=== PATIENT | female | born 1955 | race African-American/Black ===

== ENCOUNTER 2024-12-25 07:49 | Outpatient (OUT) | payer MEDICARE, MEDICAID, SELFPAY ==
--- OUTSIDE RECORDS SUMMARY | 2024-08-19 05:13 | XMS_ITS ---
Author Organization The [facility] in [place] Address [address] [place] [address] Care Team Providers Care Clinical Social Work Therapist Name Role Phone None, Unknown or Primary Care Provider Unavailab Uriel Rider Unavailable [phone] REASON FOR VISIT Need insurance Encounters Encounter Location Date Provider Diagnosis [facility] [place] [address] [place] [phone] 08/19/2024 Uriel Romeo Plan Of Treatment No Information Progress Notes * Temi CARRANZA ADOB: [birth year] (69 yo F)Acc No.[id number]:08/19/2024 Patient: Kavon JONES Temi Qiu :1955 A ge:69 Y S ex:Female Address:[address] [place] [phone] * true * Date: Generated for Printi ng/Faleleg/eTransmitting on: 0 12/25/2024 07:58 AM EDT
--- OUTSIDE RECORDS SUMMARY | 2024-09-02 08:41 | XMS_ITS ---
Author Organization [facility] in [place] Address [address] [place] [address] Care Team Providers Care Instant Powder Supervisor Name Role Phone None, Unknown or Primary Care Provider Unavailab Alexi Ron Unavailable [phone] REASON FOR VISIT Need new Ins - 09/07 appt Encounters Encounter Location Date Provider Diagnosis [facility] [address] [address] 09/02/2024 Alexi Powers Plan Of Treatment No Information Progress Notes * Temi CARRANZA ADOB: [birth year] (69 yo F)Acc No.[id number]:09/02/2024 Patient: Barb CHRISTIANSONricia Uyen :1955 A ge:69 Y S ex:Female Address:[address] [place] [phone] * true * Date: Generated for Printi ng/Faxing/eTransmitting on: 0 12/25/2024 07:59 AM EDT
--- OUTSIDE RECORDS SUMMARY | 2024-09-07 11:20 | XMS_ITS ---
Author Organization The [facility] in [place] Address [address] [place] [address] Care Team Providers Care Engineering Department Chair Name Role Phone None, Unknown or Primary Care Provider Unavailab Alexi Ron Unavailable [phone] Allergies Allergen (clinical drug ingredient) Drug/Non Drug Allergy documented on EMR Reaction Allergy Type Onset Date Status duloxetine DULoxetine Unknown Drug Allergy Activ e REASON FOR VISIT other proteinuria Encounters Encounter Location Date Provider Diagnosis [facility] [place] [address] [place] [address] 09/07/2024 Alexi Powers Plan Of Treatment No Information Progress Notes * Temi CARRANZA ADOB: [birth year] (69 yo F)Acc No.[id number]:09/07/2024 UNLOCKED PROGRESS NOTE Progress Note Patient: Temi CHRISTIANSON Provider: Kavon Powers MD :1955 A ge:69 Y S ex:Female Date:09/07/2024 Address:[address] [place], [place] [phone] Pcp:Unknown or None Subjective: * Chief Complaints: * 1 . Other proteinuria. * HPI: G eneral: History: Pt was referred to us by her PCP for evaluation of proteinuria. She had a total protein creatinine ratio done that showed her ratio is elevated 0.625. Pt states that she doesn't know why she was referred to us and is generally a poor historian. She is not very familiar with her medical history. N o family present at the visit to help with pt's medical history details. She denies any history of kidney conditions or any family history of kidney disease. Pt has had a history of HTN that she states just started this past year, in the last 2 months. She is also a Type II Diabetic for the same amount of time. Unsure how long pt had these conditions prior to being seen for them. She is taking diuretics for volume and BP control. No recent renal US. No lab work available other than protein electrophoresis that showed pattern consistent with glomerular protenuria and a protein/creatinine ratio of 0.625. Location: Kidneys Quality: Medical Kidney Disease Duration: New Onset Severity: Moderate Timing: Acute vs chronic Known aggravating factors: None known to pt Known relieving factors: None known to pt Other: related problems Hx of NSAIDs: Pt states that she uses Motrin a couple times per month for general aches and pains, does not use it daily, cannot recall the dose that she typically takes Hx of Renal Stones: None Hx of Proteinuria: Yes, see above. Hx of Hematuria: Not known to patient FH of kidney disease: Not known to patient Chronic (current) Diseases Hx: See PMH. * Medical History: A llergic rhinitis due to allergen, Anxiety, Arthritis, benign essential HTN, Colon polyp, DM type2, Osteoarthritis of knees, bilateral, Sciatica, Sleep apnea. * Family History: N o Family History documented.. * Allergies: D ULoxetine. Objective: * Vitals: Assessment: Plan: * Treatment: * Preventive Medicine: Screenings/Counseling: F ALL RISK SCREENING F all Risk Assessment: N o falls in the past year, A re you afraid of falling? N o. * * Electronic signature of Alexi Powers MD, [id number] on 12/25/2024 at 07:58 AM EDT Sign off status: Pending Visit Status: R /S (Rescheduled) * Provider: Kavon Powers MD Date: 0 09/07/2024 Generated for Mariana davis/Hai/Saimaitting on: 0 12/25/2024 07:58 AM EDT History and Physical Notes * HPI (History of Present Illness) Category Sub-Category Detail Notes Category Not es General History: Pt was referred to us by her PCP for evaluation of proteinuria. She had a total protein creatinine ratio done that showed her ratio is elevated 0.625. Pt states that she doesn't know why she was referred to us and is generally a poor historian. She is not very familiar with her medical history. No family present at the visit to help with pt's medical history details. She denies any history of kidney conditions or any family history of kidney disease. Pt has had a history of HTN that she states just started this past year, in the last 2 months. She is also a Type II Diabetic for the same amount of time. Unsure how long pt had these conditions prior to being seen for them. She is taking diuretics for volume and BP control. No recent renal US. No lab work available other than protein electrophoresis that showed pattern consistent with glomerular protenuria and a protein/creatinine ratio of 0.625. Location: Kidneys Quality: Medical Kidney Disease Duration: New Onset Severity: Moderate Timing: Acute vs chronic Known aggravating factors: None known to pt Known relieving factors: None known to pt Other: related problems Hx of NSAIDs: Pt states that she uses Motrin a couple times per month for general aches and pains, does not use it daily, cannot recall the dose that she typically takes Hx of Renal Stones: None Hx of Proteinuria: Yes, see above. Hx of Hematuria: Not known to patient FH of kidney disease: Not known to patient Chronic (current) Diseases Hx: See PMH.
--- OUTSIDE RECORDS SUMMARY | 2024-09-07 11:26 | XMS_ITS ---
Author Organization The [facility] in [place] Address [address] [place] [address] Care Team Providers Care Hook Puller Name Role Phone None, Unknown or Primary Care Provider Unavailab Alexi Ron [phone] REASON FOR VISIT cancel today appt Encounters Encounter Location Date Provider Diagnosis [facility] [place] [address] [place] [phone] 09/07/2024 Alexi Powers Plan Of Treatment No Information Progress Notes * Temi CARRANZA ADOB: [birth year] (69 yo F)Acc No.[id number]:09/07/2024 Patient: Temi CHRISTIANSON :1955 A ge:69 Y S ex:Female Address:[address] [place] [phone] * true * Date: Generated for Libiai ryan/Hai/eTransmitting on: 0 12/25/2024 07:58 AM EDT
--- OUTSIDE RECORDS SUMMARY | 2024-10-19 11:20 | XMS_ITS ---
Author Organization [facility] in [place] Address [address] [place] [address] Care Team Providers Care Remediation Bioanalytics Consultant Name Role Phone None, Unknown or Primary Care Provider Unavailab Alexi Ron Unavailable [phone] Allergies Allergen (clinical drug ingredient) Drug/Non Drug Allergy documented on EMR Reaction Allergy Type Onset Date Status duloxetine DULoxetine Unknown Drug Allergy Activ e REASON FOR VISIT r/s from August, other proteinuria Encounters Encounter Location Date Provider Diagnosis [facility] [place] [address] [place] [phone] 10/19/2024 Alexi Powers Plan Of Treatment No Information Progress Notes * Temi CARRANZA ADOB: [birth year] (69 yo F)Acc No.[id number]:10/19/2024 UNLOCKED PROGRESS NOTE Progress Note Patient: Temi CHRISTIANSON Provider: Kavon Powers MD :1955 A ge:69 Y S ex:Female Date:10/19/2024 Address:[address] [place], [place] [phone] Pcp:Unknown or None Subjective: * Chief Complaints: * 1 . r/s from August. 2. Other proteinuria. * HPI: G eneral: History: [...] * Vitals: Assessment: Plan: * Treatment: * * Electronic signature of Alexi Powers MD, [id number] on 12/25/2024 at 07:58 AM EDT Sign off status: Pending Visit Status: N /S N/C (No Show/No Charge) * Provider: Kavon Powers MD Date: 0 10/19/2024 Generated for Mariana davis/Hai/Hayleysmitting on: 0 12/25/2024 07:58 AM EDT History [...]
--- OUTSIDE RECORDS SUMMARY | 2024-12-14 13:15 | XMS_ITS | Encounter Summary ---
Author Organization [facility] Address [address] [place] [address] Phone Care Team Providers Care Museum Preparator Name Role Phone Yvonne Frankel MD Primary Care Provider [phone] Reason for Visit * Reason Comments Hearing Loss Encounter Details Date Type Department Care Team (Latest Contact Info) Description 12/14/2024 1:15 PM EDT Office Visit [facility] [address] [phone] [place] [address] Department of Otolaryngology [place], [place] [phone] Glomus tympanicum tumor (Primary Dx); Mixed conductive and sensorineural hearing loss of left ear, unspecified hearing status on contralateral side; Pulsatile tinnitus Discharge Disposition: Home Social History Tobacco Use Types Packs/Day Years Used Date Smoking Tobacco: Every Day Cigarettes 2 40 Passive Smoke Exposure: Never Smokeless Tobacco: Never Alcohol Use Standard Drinks/Week Comments Not Currently 0 (1 standard drink = 0.6 oz pur e alcohol) PHQ-2 Answer Date Recorded Patient Health Questionnaire-2 Score 0 12/14/2024 Comments No Sex and Gender Information Value Date Recorded Sex Assigned at Not on file Legal Sex Female 1:29 PM EDT Gender Identity Not on file Sexual Orientation Not on file documented as of this encounter Last Filed Vital Signs Vital Sign Reading Time Taken Comments Blood Pressure - - Pulse - - Temperature 36.5 C (97.7 F) 12/14/2024 1:29 PM EDT Respiratory Rate - - Oxygen Saturation - - Inhaled Oxygen Concentration - - Weight 142 kg (312 lb) 12/14/2024 1:29 PM EDT Height - - Body Mass Index 51.92 11/26/2024 12:55 PM EDT documented in this encounter Functional Status * Over the past 2 weeks, how often have you been bothered by any of the following problems? Question Answer Date of Assessment Author Little interest or pleasure in doing things Not at all 12/14/2024 1:30 PM EDT Liat Lerma L PN Feeling down, depressed, or hopeless Not at all 12/14/2024 1:30 PM EDT Liat Lerma L PN Patient Health Questionnaire -2 Score 0 12/14/2024 1:30 PM EDT Liat Lerma L PN documented as of this encounter Progress Notes * Jurgen Santana MD - 12/14/2024 1:15 PM EDT Images from the original note were not included. Chief Complaint: pulsatile tinnitus Referred by: Dt. 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 Doing well postop. Treatment History 11/26/24 - Left endoscopic transcanal glomus tympanicum resection and tympanoplasty Tympanic membrane perforation: 5% - inferior, marginal Ossicular chain reconstruction: None Middle ear inflammation: None aside from the tumor Facial nerve dehiscence: None Chorda tympani nerve: Intact Extent of tumor resection: Gross total resection HISTORY OF PRESENT ILLNESS: This is a 69 yo female who presents today for pulsatile tinnitus and suspected glomus tumor. Symptoms isolated to the left. Progressive. Worsening over the past few years. - Diabetic. Minimal mointoring - No prior ear surgeries. No known family history of paragangliomas. Denies swallowing or voice issues. Denies hypertensive urgency. has a past medical history of Anxiety, Arthritis, Bipolar disorder, Bradycardia, Chronic pain disorder, Colon polyp, Dental disease, Depression, Glomus tympanicum tumor, HL (hearing loss), Hyperlipidemia, Hypertension, Hypothyroidism, Joint pain, Knee pain, OA (osteoarthritis), Obesity, Peptic ulcer disease, Sleep apnea, Thyroid nodule, Type 2 diabetes mellitus, and Vision loss. has a past surgical history that includes Colonoscopy; Hernia repair; Cholecystectomy; Parathyroidectomy; Thyroidectomy; and Tubal ligation. Current Medications[1] Review of patient's allergies indicates: Allergies[2] Social History and Family History: reviewed in the EMR New patients fill out a 10-system review of systems survey that gets reviewed at their initial visit. Pertinent positives have been incorporated into the HPI. PHYSICAL EXAM: Vitals: 12/14/24 1329 Temp: 36.5 ??C (97.7 ??F) TempSrc: Temporal Weight: 142 kg (312 lb) The patient is well-developed, well-nourished and in no acute distress. The patient is alert and oriented to time, person, and place with appropriate mood and affect. EARS: Examination of the external ears was normal using visual inspection. Handheld otoscopy was inadequate to provide fine detail and depth perception necessary for a full diagnostic assessment of the tympanic membrane and middle ear space. The otologic microscope was utilized to improve visualization. Use of the otologic microscope facilitates cleaning of the EAC and three-dimensional, magnified visualization of the tympanic membrane and middle ear structures for diagnosis of observable pathology and anatomical variations. Otoscopic and/or microscopic evaluation reveals: Right: External auditory canal: patent Tympanic Membrane: intact and normal Middle ear: well aerated Left: External auditory canal: patent Tympanic Membrane: reconstruction intact Middle ear: effusion Eyes: EOMI, vision grossly intact, no nystagmus Neurologic: CN 2-12 intact including normal facial movement and sensation DATA REVIEWED: AUDIOGRAMS Date - 09/24/[address] IAC - 2024 - reviewed - right middle ear and mastoid well aerated - left middle ear and mastoid with complete opacification, no obvious erosion, tegmen thin but seems intact OTHER - none PROCEDURE: -none ASSESSMENT & PLAN: Problem List Items Addressed This Visit ENT Mixed conductive and sensorineural hearing loss of left ear Pulsatile tinnitus Hematology and Neoplasia Glomus tympanicum tumor - Primary Reviewed pathophysiology of glomus tympanicum. Also discussed H&N pargangliomas. Now s/p transcanal glomus tympanicum resection. Thought to be a gross total resection. - ear drops for another week - RTC in 3-4 months with audiogram Jurgen Santana M.D. Spinning Frame Changer Otology/Neurotology Department of Otolaryngology - Head and Neck Surgery [facility] Phone/Appointments: E-mail: [1] Current Outpatient Medications: aspirin 81 mg EC tablet, , Disp: , Rfl: atorvastatin (Lipitor) 40 mg tablet, Take 1 tablet (40 mg) by mouth., Disp: , Rfl: fluticasone (Flonase) 50 mcg/actuation nasal spray, Administer 2 sprays into affected nostril(s) once daily., Disp: , Rfl: furosemide (Lasix) 20 mg tablet, Take 1 tablet (20 mg) by mouth once daily in the morning. Take before meals., Disp: , Rfl: hydroCHLOROthiazide (HYDRODiuril) 25 mg tablet, Take 1 tablet (25 mg) by mouth once daily., Disp: ,Rfl: HYDROcodone-acetaminophen ([place]) 10-325 mg tablet, Take 1 tablet by mouth every 6 hours if needed for severe pain (7 - 10)., Disp: 20 tablet, Rfl: 0 levothyroxine (Synthroid, Levoxyl) 150 mcg tablet, Take 1 tablet (150 mcg) by mouth once daily in the morning. Take before meals., Disp: , Rfl: lisinopril 10 mg tablet, Take 1 tablet (10 mg) by mouth once daily., Disp: , Rfl: metFORMIN (Glucophage) 500 mg tablet, Take 2 tablets (1,000 mg) by mouth 2 times daily (morning andlate afternoon)., Disp: , Rfl: metoprolol tartrate (Lopressor) 25 mg tablet, Take 1 tablet (25 mg) by mouth twice a day., Disp: , Rfl: mometasone (Elocon) 0.1 % ointment, APPLY TO AFFECTED AREA TOPICALLY EVERY DAY, Disp: , Rfl: polyethylene glycol (Glycolax, Miralax) 17 gram packet, Take 17 g by mouth once daily., Disp: , Rfl: potassium chloride (Klor-Con) 20 mEq packet, Take 20 mEq by mouth once daily., Disp: , Rfl: sertraline (Zoloft) 50 mg tablet, Take 1 tablet (50 mg) by mouth once daily in the morning. Take before meals., Disp: , Rfl: traZODone (Desyrel) 50 mg tablet, , Disp: , Rfl: ofloxacin (Floxin) 0.3 % otic solution, Administer 4 drops into affected ear(s) 2 times a day. (Patient not taking: Reported on 12/14/2024), Disp: 10 mL, Rfl: 0 [2] Allergies Allergen Reactions Duloxetine Diarrhea and Other documented in this encounter Plan of Treatment Upcoming Encounters Date Type Department Care Team (Late st Contact Info) Description 04/01/2025 2:00 PM EST Clinical Support [facility] [address] [place] [phone] Estella Bonilla, AUD, 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
--- OUTSIDE RECORDS SUMMARY | 2024-12-25 07:58 | XMS_ITS | Clinical Summary ---
Author Organization [facility] Address [address] [place] [address] Phone Care Team Providers Care Automobile Locator Name Role Phone Yvonne Frankel MD Primary Care Provider [phone] Allergies Active Allergy Reactions Criticality Noted Date Comments Duloxetine Diarrhea,Other 09/18/2023 Medications aspirin 81 mg EC tablet 4 Active atorvastatin (Lipitor) 40 mg tablet Take 1 tablet (40 mg) by mouth. 4 Active fluticasone (Flonase) 50 mcg/actuation nasal spray Administer 2 sprays into affected nostril(s) once daily. 4 Active furosemide (Lasix) 20 mg tablet Take 1 tablet (20 mg) by mouth once daily in the morning. Take before meals. 4 Active hydroCHLOROthi azide (HYDRODiuril) 25 mg tablet Take 1 tablet (25 mg) by mouth once daily. 5 Active metFORMIN (Glucophage) 500 mg tablet Take 2 tablets (1,000 mg) by mouth 2 times daily (morning and late afternoon). 3 Active lisinopril 10 mg tablet Take 1 tablet (10 mg) by mouth once daily. 5 Active metoprolol tartrate (Lopressor) 25 mg tablet Take 1 tablet (25 mg) by mouth twice a day. 5 Active mometasone (Elocon) 0.1 % ointment APPLY TO AFFECTED AREA TOPICALLY EVERY DAY Active potassium chloride (Klor-Con) 20 mEq packet Take 20 mEq by mouth once daily. Active polyethylene glycol (Glycolax, Miralax) 17 gram packet Take 17 g by mouth once daily. 5 Active traZODone (Desyrel) 50 mg tablet 4 Active sertraline (Zoloft) 50 mg tablet Take 1 tablet (50 mg) by mouth once daily in the morning. Take before meals. Active levothyroxine (Synthroid, Levoxyl) 150 mcg tablet Take 1 tablet (150 mcg) by mouth once daily in the morning. Take before meals. 4 Active HYDROcodone-ac etaminophen (Lee) 10-325 mg tabletIndicati ons:Glomus tympanicum tumor,Post-ope rative pain Take 1 tablet by mouth every 6 hours if needed for severe pain (7 - 10). 20 tablet 5 Active ofloxacin (Floxin) 0.3 % otic solutionIndica tions:Glomus tympanicum tumor Administer 4 drops into affected ear(s) 2 times a day. 10 mL 5 Active Additional Information Patient not taking.Reported on 12/14/2024 chlorhexidine (Hibiclens) 4 % external liquidIndicati ons:Preoperati ve examination,Gl omus tympanicum tumor Apply topically once daily as needed (preop care). Use for 5 days prior to surgery as body wash, do not use on face or genital region. Leave on 3 min prior to removal 473 mL 5 025 Discontinu ed(Stop Taking at Discharge) chlorhexidine (Peridex) 0.12 % solutionIndica tions:Preopera tive examination,Gl omus tympanicum tumor Please use as mouthwash the night before surgery and the morning of surgery. 120 mL 5 025 Discontinu ed(Stop Taking at Discharge) amoxicillin (Amoxil) 500 mg capsuleIndicat ions:Glomus tympanicum tumor Take 1 capsule (500 mg) by mouth 3 times a day for 5 days. 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 Encounters Date Type Department Care Team Description 12/14/2024 1:15 PM EDT Office Visit [facility] [address] [address] Jurgen Santana MD Glomus tympanicum tumor (Primary Dx); Mixed conductive and sensorineural hearing loss of left ear, unspecified hearing status on contralateral side; Pulsatile tinnitus Discharge Disposition: Home 12/14/2024 Travel 11/27/2024 Telephone [facility] [address] [place] [address] Hayley Bland RN 11/26/2024 1:26 PM EDT Anesthesia [place] [address] [place] [address] Vic Duarte MD Del Angel Diaz, Laurent A, MD 11/26/2024 12:50 PM EDT - 11/26/2024 5:20 PM ED[place] [address] [place] [address] Jurgen Santana MD Combined endoscopic-microscop ic tympanomastoidectomy , Glomus tympanicum resection with CO2 laser [37024 (CPT ) +2 more] 11/26/2024 11:22 AM EDT - 11/26/2024 7:17 PM EDT Hospital [place] [address] [place] [address] Jurgen Santana MD Post-operative pain (Primary Dx); Glomus tympanicum tumor; Mixed conductive and sensorineural hearing loss of left ear with unrestricted hearing of right ear [H90.72] Discharge Disposition: Home 11/26/2024 Travel 11/25/2024 Erroneous Telephone Encounter [facility] [address] [place] [address] Hayley Bland, PATRICK 11/13/2024 1:00 PM EDT Pre-Admission Testing [facility] [address] [place] [address] Preoperative examination (Primary Dx); Glomus tympanicum tumor 11/13/2024 Travel 11/06/2024 1:30 PM EDT Clinical Support [facility] [address] [place] [address] 09/24/2024 1:30 PM EDT Office Visit [facility] [address] [place] [address] Jurgen Santana MD Mixed conductive and sensorineural hearing loss of left ear, unspecified hearing status on contralateral side (Primary Dx); Pre-op testing; Glomus tympanicum tumor 09/24/2024 1:00 PM EDT Clinical Support [facility] [address] [place] [address] Christine Short, JIMENEZ, CCC-A Mixed conductive and sensorineural hearing loss of left ear with restricted hearing of right ear (Primary Dx); Sensorineural hearing loss (SNHL) of right ear with restricted hearing of left ear 09/24/2024 Travel from Last 3 Months Family History Medical History Relation Name Comments No Known Problems Father No Known Problems Mother Deep vein thrombosis Sister Pulmonary embolism Sister Relation Name Status Comments Father Mother Sister Social History Tobacco Use Types Packs/Day Years Used Date Smoking Tobacco: Every Day Cigarettes 2 40 Passive Smoke Exposure: Never Smokeless Tobacco: Never Tobacco Cessation:Ready to Q uit: Not Asked; Counseling Given: Not Answered Alcohol Use Standard Drinks/Week Comments Not Currently 0 (1 standard drink = 0.6 oz pur e alcohol) PHQ-2 Answer Date Recorded Patient Health Questionnaire-2 Score 0 12/14/2024 Comments No Sex and Gender Information Value Date Recorded Sex Assigned at Not on file Legal Sex Female 1:29 PM EDT Gender Identity Not on file Sexual Orientation Not on file Last Filed Vital Signs Vital Sign Reading Time Taken Comments Blood Pressure 160/74 11/26/2024 6:45 PM EDT Pulse 71 11/26/2024 6:45 PM EDT Temperature 36.5 C (97.7 F) 12/14/2024 1:29 PM EDT Respiratory Rate 15 11/26/2024 6:45 PM EDT Oxygen Saturation 97% 11/26/2024 6:45 PM EDT Inhaled Oxygen Concentration - - Weight 142 kg (312 lb) 12/14/2024 1:29 PM EDT Height 165.1 cm (5' 5 ) 11/26/2024 12:55 PM EDT Body Mass Index 51.92 11/26/2024 12:55 PM EDT Plan of Treatment Upcoming Encounters Date Type Department Care Team (Late st Contact Info) Description 04/01/2025 2:00 PM EST Clinical Support [facility] [address] [place] [phone] Estella Bonilla, JIMENEZ, CCC-A [address] [facility] [place], [place] [phone] 04/01/2025 2:45 PM EST Office Visit [facility] [address] [place] [phone] [place] [address] Department of Otolaryngology [place], [place] [phone] Health Maintenance Due Date Last Done Comments CT Colonography 1953 Diabetes: Hemoglobin A1C 1953 FIT-DNA (Cologuard) 1953 FIT 1953 Lipid Panel 1955 Sigmoidoscopy 1955 Welcome to Medicare Visit 1955 MMR Vaccines (1 of 1 - Standard series) 1954 Diabetes: Retinopathy Screening 1963 Hepatitis C Screening 1971 Hepatitis A Vaccines (1 of 2 - Risk 2-dose series) 1972 DTaP/Tdap/Td Vaccines (1 - Tdap) 1975 Hepatitis B Vaccines (1 of 3 - Risk 3-dose series) 2013 RSV High Risk: (Elderly (60+) or Population) (1 - Risk 60-74 years 1-dose series) 2013 Pneumococcal Vaccine (3 of 3 - PCV20 or PCV21) 08/27/2023 08/26/2018, 02/20/2013 COVID-19 Vaccine (3 - season) 2023 10/12/2020, 09/07/2020 Zoster Vaccines (2 of 2) 02/24/2024 12/30/2023 Bone Density Scan 09/03/2024 09/03/2022 Diabetes: Urine Protein Screening 12/25/2024 12/26/2023 Influenza Vaccine (#1) 2024 , 03/07/2023, 04/16/2022, Additional history exists Lung Cancer Screening 02/24/2025 02/25/2024, 022 Mammogram 02/24/2025 02/25/2024, 01/28, 09/12/2022, Additional history exists TSH Level 07/03/2025 07/03/2024 Colonoscopy 10/02/2034 10/02/2024, 06/0 09/2024, 03/06/2024, Additional history exists Colorectal Cancer Screening 10/02/2034 HIB Vaccines Aged Out No longer eligi ble based on patient's age to complete this topic HPV Vaccines Aged Out No longer eligi ble based on patient's age to complete this topic IPV Vaccines Aged Out No longer eligi ble based on patient's age to complete this topic Meningococcal Vaccine Aged Out No woody jovani eligible based on patient's age to complete this topic Rotavirus Vaccines Aged Out No longer eligible based on patient's age to complete this topic Medical Devices Implanted Type Area Lunchroom Food Service Supervisor Device Identifier Shelf Expiration Date Model / Serial / Lot Graft, [employer], [employer], 0.6.-0.9cm - [id number] Implanted:Qty : 1 on 11/26/2024 by Jurgen Santana MD at [facility] Cochlear Implant Left: [id number] 08/18/2025 [id number] / / [id number] Procedures Procedure Name Priority Date/Time Associated Diagnosis Comments POCT GLUCOSE Routine 11/26/2024 6:20 PM EDT PULSE OXIMETRY, CONTINUOUS Routine 11/26/2024 4:51 PM EDT SURGICAL PATHOLOGY EXAM Routine 11/26/2024 3:09 PM EDT Glomus tympanicum tumor POCT GLUCOSE Routine 11/26/2024 2:56 PM EDT ANESTHESIA PERIPHERAL IV PLACEMENT Routine 11/26/2024 1:40 PM EDT MD AN ELECTIVE ENDOTRACHEAL AIRWAY Routine 11/26/2024 1:36 PM EDT VERAB/VERIFY ABORH STAT 11/26/2024 1: 00 PM EDT POCT GLUCOSE Routine 11/26/2024 12:53 PM EDT MD EXCISION AURAL GLOMUS TUMOR TRANSMASTOID 11/26/2024 12:50 PM EDT Glomus tympanicum tumor Special Needs CALVIAN ENDOPEN (Transsphenoidal tray) MD TMPP MASTOIDECT NTC/RCNSTED WALL W/O OCR 11/26/2024 12:50 PM EDT Glomus tympanicum tumor Special Needs CALVIAN ENDOPEN (Transsphenoidal tray) MD GRAFT EAR CRTLG AUTOGENOUS NOSE/EAR 11/26/2024 12:50 PM EDT Glomus tympanicum tumor Special Needs CALVIAN ENDOPEN (Transsphenoidal tray) PULSE OXIMETRY, SPOT Routine 11/26/2024 12:48 PM EDT Glomus tympanicum tumor TYPE AND SCREEN Routine 11/13/2024 1:38 PM EDT Preoperative examination Glomus tympanicum tumor BASIC METABOLIC PANEL Routine 11/13/2024 1:38 PM EDT Preoperative examination Glomus tympanicum tumor CBC Routine 11/13/2024 1:38 PM EDT Preoperative examination Glomus tympanicum tumor STAPHYLOCOCCUS AUREUS/MRSA COLONIZATION, CULTURE Routine 11/13/2024 1:38 PM EDT Preoperative examination Glomus tympanicum tumor from Last 3 Months Results * (ABNORMAL) POCT GLUCOSE (11/26/2024 6:20 PM EDT) POCT Glucose 100(H) 74 - 99 mg/dL 11/26/2024 6:22 PM EDT [facility] Blood Capillary blood specimen / Unknown 11/26/2024 6:20 PM EDT 11/26/2024 6:22 PM EDT us Jurgen Santana MD LAB POINT OF CARE TE ST DOCKED DEVICE UNSOLICITED RESULTS Final Result [facility] [address] [id number] * Surgical Pathology Exam (11/26/2024 3:09 PM EDT) Case Report Surgical Pathology Case: [id number] Authorizing Provider: Jurgen Santana MD Collected: 11/26/2024 1509 Ordering Location: 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 12/14/2024 1:14 PM EDT [facility] Resident Review The findings were reviewed in conjunction with Endocrine Pathology Fellow, Mark Meyer M.D. The gross and/or microscopic findings were reviewed in conjunction with pathology resident, Clair Monet M.D. 12/14/2024 1:14 PM EDT [facility] Synoptic Report Commentary CLINICAL +Clinical History: cannot be determined Functional Status: Not known (no information provided) +Tumor Scintigraphy or PET Avidity: cannot be determined +Anatomic Location from Imaging: left middle ear +Tumor Size from Imaging Studies: cannot be determined SPECIMEN Extra-adrenal excision,left middle ear +Specimen Integrity : Fragmented TUMOR Tumor Number: Unifocal Tumor Location: Extra-adrenal - left middle ear +Tumor Size: 1.1 x 0.5 x 0.5 cm Histologic Type(s) Paraganglioma Tumor Necrosis: Not identified Angioinvasion: Not identified Lymphatic Invasion: Not identified Tumor Extent: Cannot be determined: morcellated specimen\ Tumor Proliferative Activity Ki-67 Labeling Index 8.4% Ki-67 Methodology :automated image analysis MARGINS Margin Status: Cannot be determined REGIONAL LYMPH NODES Regional Lymph Node Status: Not applicable (no regional lymph nodes submitted or found) DISTANT METASTASIS Not applicable ADDITIONAL FINDINGS None identified SPECIAL STUDIES +Keratins (cam5.2): Negative +Chromogranin-A: Positive +Tyrosine Hydroxylase: Positive +GATA3: Positive +V528--msdffwlf [employer]: Present +SDHB: Retained (normal staining) +CAIX Negative +FH Retained (normal staining) Other Markers Negative for glucagon, PP, SATB2 12/14/2024 1:14 PM EDT [facility] Clinical History Glomus tympanicum tumor [D18.09] 12/14/2024 1:14 PM EDT [facility] Gross Description A: Received in formalin, labeled with the patient's name and number and left middle ear contents , are multiple fragments of duval-brown soft tissue that measure 1.1 x 0.5 x 0.5 cm in aggregate. The specimen is submitted in toto in one cassette. DEREK 12/14/2024 1:14 PM EDT [facility] Disclaimer One or more of the reagents used to perform assays on this specimen MAY have contained components considered to be analyte specific reagents (ASR's). ASR's have not been cleared or approved by the U.S. Food and Drug Administration. These assays were developed and their performance characteristics determined by the Department of Pathology at [facility]. The FDA does not require this test to go through premarket FDA review. This test is used for clinical purposes. It should not be regarded as investigational or for research. This laboratory is certified under the Clinical Laboratory Improvement Amendments (CLIA) as qualified to perform high complexity clinical laboratory testing. The assays were performed with appropriate positive and negative controls which stained appropriately. 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] Jurgen Santana MD LAB PATHOLOGY ORDERABLES Final Result Performing Organization Address [facility] Co de Phone Number [facility] [address] [place] [phone] * POCT GLUCOSE (11/26/2024 2:56 PM EDT) POCT Glucose 85 74 - 99 mg/dL 11/26/2024 5:28 PM EDT [facility] Blood Capillary blood specimen / Unknown 11/26/2024 2:56 PM EDT 11/26/2024 5:28 PM EDT Jurgen Santana MD LAB POINT OF CARE TE ST DOCKED DEVICE UNSOLICITED RESULTS Final Result Performing Organization Address [facility] de Phone Number [facility] [address] [place] [id number] * ANESTHESIA PERIPHERAL IV PLACEMENT (11/26/2024 1:40 PM EDT) Narrative Silvano Valentine CAA - 11/26/2024 1:40 PM EDT LINDSEY Del Rosario 11/26/2024 2:15 PM Peripheral IV Date/Time: 11/26/2024 1:40 PM Inserted by: LINDSEY Del Rosario Placement Needle size: 18 G Laterality: left Location: wrist Local anesthetic: none Site prep: alcohol Technique: anatomical landmarks Attempts: 1 us Vic Duarte MD ANESTHESIA ORDERABLES Edited Res ult - Final * MD AN ELECTIVE ENDOTRACHEAL AIRWAY (11/26/2024 1:36 PM EDT) Narrative Silvano Valentine CAA - 11/26/2024 1:36 PM EDT LINDSEY Del Rosario 11/26/2024 2:12 PM Airway Date/Time: 11/26/2024 1:36 PM Reason: elective Airway not difficult Staffing Performed: attending and CAA Authorized by: Steve Cordova MD Performed by: LINDSEY Del Rosario Patient location during procedure: OR Patient Condition Indications for airway management: anesthesia Patient position: ramp MILS not maintained throughout No planned trial extubation Final Airway Details Preoxygenated: yes Final airway type: endotracheal airway Successful airway: ETT Cuffed: yes Successful intubation technique: video laryngoscopy Endotracheal tube insertion site: oral Blade type: kapoor. Blade size: #3 ETT size (mm): 7.0 Cormack-Lehane Classification: grade I - full view of glottis Placement verified by: chest auscultation, capnometry and palpation of cuff Measured from: teeth ETT to teeth (cm): 21 Number of attempts at approach: 1 Number of other approaches attempted: 0 us Steve Cordova MD ANESTHESIA ORDERABLE S Edited Result - Final * Verify ABO/Rh Group Test (VERAB) (11/26/2024 1:00 PM EDT) ABO TYPE O 11/26/2024 1:49 PM EDT [facility] Rh TYPE POS 11/26/2024 1:4 9 PM EDT [facility] Blood Venous blood specimen / Unknown Venipuncture / Unknown 11/26/2024 1:00 PM EDT 11/26/2024 1:08 PM EDT us Silvano PORTILLO LAB BLOOD BANK TEST ORDERABLES Final Result [facility]OD BANK [address] [place] [address] * POCT GLUCOSE (11/26/2024 12:53 PM EDT) POCT Glucose 86 74 - 99 mg/dL 11/26/2024 1:04 PM EDT [facility] Blood Capillary blood specimen / Unknown 11/26/2024 12:53 PM EDT 11/26/2024 1:04 PM EDT us Jurgen Santana MD LAB POINT OF CARE TE ST DOCKED DEVICE UNSOLICITED RESULTS Final Result [facility] [address] [address] [address] [phone] * (ABNORMAL) CBC (11/13/2024 1:38 PM EDT) [facility] Signature WBC 6.8 4.4 - 11.3 x10*3/uL LAB HEMATOLOGY METHOD 11/13/2024 3:39 PM EDT [facility] nRBC 0.0 0.0 - 0.0 /100 WBCs LAB HEMATOLOGY METHOD 11/13/2024 3:39 PM EDT [facility] RBC 5.22(H) 4.00 - 5.20 x10*6/uL LAB HEMATOLOGY METHOD 11/13/2024 3:39 PM EDT [facility] Hemoglobin 13.7 12.0 - 16.0 g/dL LAB HEMATOLOGY METHOD 11/13/2024 3:39 PM EDT [facility] Hematocrit 43.2 36.0 - 46.0 % LAB HEMATOLOGY METHOD 11/13/2024 3:39 PM EDT [facility] MCV 83 80 - 100 fL LAB HEMATOLOGY METHOD 11/13/2024 3:39 PM EDT [facility] MCH 26.2 26.0 - 34.0 pg LAB HEMATOLOGY METHOD 11/13/2024 3:39 PM EDT [facility] MCHC 31.7(L) 32.0 - 36.0 g/dL LAB HEMATOLOGY METHOD 11/13/2024 3:39 PM EDT [facility] RDW 18.6(H) 11.5 - 14.5 % LAB HEMATOLOGY METHOD 11/13/2024 3:39 PM EDT [facility] Platelets 210 150 - 450 x10*3/uL LAB HEMATOLOGY METHOD 11/13/2024 3:39 PM EDT [facility] Blood Venous blood specimen / Unknown Venipuncture / Unknown 11/13/2024 1:38 PM EDT 11/13/2024 3:22 PM EDT Jenny Yuan PA-C LAB BLOOD ORDERABLES Final Res ult Performing Organization Address [facility]/ZIP Co de Phone Number [facility] [address] [address] * Type And Screen Is this order related to or an upcoming surgery? Yes; Where will this surgery/delivery be performed? [facility]; What is the date of the surgery? 11/26/2024; Has this patient ever had a transfusion? No; Has t... (11/13/2024 1:38 PM EDT) Pathologist [facility] ABO TYPE O 11/13/2024 4:23 PM EDT [facility] Rh TYPE POS 11/13/2024 4:23 PM EDT [facility]LOOD BANK ANTIBODY SCREEN NEG 4:23 PM EDT [facility] Blood Venous blood specimen / Unknown Venipuncture / Unknown 11/13/2024 1:38 PM EDT 11/13/2024 3:05 PM EDT [employer] PA-C LAB BLOOD BANK TEST ORDERABLES Final Result Performing Organization Address [facility] Co de Phone Number [facility] BLOOD BANK [id number] [place] [phone] * Staphylococcus aureus/MRSA colonization, Culture (11/13/2024 1:38 PM EDT) Pathologist [facility] Staph/MRSA Screen Culture No Staphylococcus aureus isolated 11/15/2024 6:29 AM EDT [facility] Swab (Nares/Axilla/Gr oin) 11/13/2024 1:38 PM EDT 11/13/2024 3:19 PM EDT [employer] PA-C LAB MICROBIOLOGY - GENERAL ORD ERABLES Final Result Performing Organization Address City/[facility]/ZIP Co de Phone Number [facility] [address] [address] * (ABNORMAL) Basic Metabolic Panel (11/13/2024 1:38 PM EDT) [facility] Glucose 94 74 - 99 mg/dL LAB CHEMISTRY METHOD 11/13/2024 4:05 PM EDT [facility] Sodium 135(L) 136 - 145 mmol/L LAB CHEMISTRY METHOD 11/13/2024 4:05 PM EDT [facility] Potassium 4.5 3.5 - 5.3 mmol/L LAB CHEMISTRY METHOD 11/13/2024 4:05 PM EDT [facility] Chloride 96(L) 98 - 107 mmol/L LAB CHEMISTRY METHOD 11/13/2024 4:05 PM EDT [facility] Bicarbonate 28 21 - 32 mmol/L LAB CHEMISTRY METHOD 11/13/2024 4:05 PM EDT [facility] Anion Gap 16 10 - 20 mmol/L LAB CHEMISTRY METHOD 11/13/2024 4:05 PM EDT [facility] Urea Nitrogen 13 6 - 23 mg/dL LAB CHEMISTRY METHOD 11/13/2024 4:05 PM EDT [facility] Creatinine 0.85 0.50 - 1.05 mg/dL LAB CHEMISTRY METHOD 11/13/2024 4:05 PM EDT [facility] eGFR 73 >60 mL/min/1. 73m*2 LAB CHEMISTRY METHOD 11/13/2024 4:05 PM EDT [facility] Comment: Calculations of estimated GFR are performed using the 2020 CKD-EPI Study Refit equation without the race variable for the IDMS-Traceable creatinine methods. https://jasn.asnjournals.org/content//ASN.3179940836 Calcium 9.7 8.6 - 10.6 mg/dL LAB CHEMISTRY METHOD 11/13/2024 4:05 PM EDT [facility] Blood Venous blood specimen / Unknown Venipuncture / Unknown 11/13/2024 1:38 PM EDT 11/13/2024 3:33 PM EDT Jenny Yuan PA-C LAB BLOOD ORDERABLES Final Res ult [facility] [address] [facility] [id number] [place], [place] [phone] from Last 3 Months Insurance MEDICAID AET[employer] MEDICARE ASSURE [facility] MEDICAID T MEDICARE ASSURE [facility] [employer] [facility] Advance Directives For more information, please contact: [phone] (Available ) * Full Code (Latest Code Status on File) Date Activated Date Inactivated Comments 11/26/2024 12:48 PM Question Answer Comments Plan of Care: Code Status Discussion Completed Decision Maker: Patient Care Teams Automobile Locator Relationship Specialty Start Date End Date Yvonne Frankel MD [address] [place] [address] PCP - General Family Medicine 08/26/24
--- OUTSIDE RECORDS SUMMARY | 2024-12-25 07:58 | XMS_ITS | Patient Health Record ---
Author Organization [facility] [place] Address [address] [place] [address] Care Team Providers Care Account Services Coordinator Name Role Phone None, Unknown or Primary Care Provider Unavailab Alexi Ron Unavailable [phone] Uriel Romeo Unavailable [phone] Allergies Allergen (clinical drug ingredient) Drug/Non Drug Allergy documented on EMR Reaction Allergy Type Onset Date Status duloxetine DULoxetine Unknown Drug Allergy Activ e Reason For Referral No Information Medications Medication SIG (Take, Route, Frequency, Duration) Notes Start Date End Date Status metFORMIN HCl 500 MG 1 tablet with a sebas l Orally Once a day Active Lisinopril 10 MG 1 tablet Orally Once a day Active Mometasone Furoate 0.1 % 1 application Externally Once a day Active Metoprolol Tartrate 25 MG 1 tablet with food Orally daily Active Furosemide 20 MG 1 tablet Orally Once a day Active Flonase Active Levothyroxine Sodium 150 MCG 1 tablet in the morning on an empty stomach Orally Once a day Active hydroCHLOROthiazide 25 MG 1 tablet in th morning Orally Once a day Active Aspirin 81 Active traZODone HCl 50 MG 1 tablet at bedtime as needed Orally Once a day Active Potassium Chloride CR Active Atorvastatin Calcium 40 MG 1 tablet Oral ly Once a day Active Zoloft 50 MG 1 tablet Orally Once a day Active Problems Problem Type SNOMED Code ICD Code Onset Dates Problem Status W/U Status Risk Notes Problem 735209238 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 Problem 32562281 Other proteinuria (R80.8) Active confirmed Vital Signs Blood pressure diastolic 76 mm Hg 06/30/2024 Height 5ft 6 in in 06/30/2024 Blood pressure systolic 120 mm Hg 06/30/2024 Weight 286.6 lbs 06/30/2024 BMI 46.25 kg/m2 06/30/2024 Encounters Encounter Location Date Provider [facility] [address] [place] [address] 04/27/2024 Alexi [facility] [address] [place] [address] 05/21/2024 Uriel Romeo [facility] [address] [place] [address] [facility] [address] [place] [address] 09/02/2024 [facility] [address] [place] [address] 09/07/2024 [facility] [address] [place] [address] 06/30/2024 Uriel Romeo Other proteinuria R80.8 and Type 2 diabetes mellitus with diabetic nephropathy E11.21 Assessments Encounter Date Diagnosis (ICD Code) Assessment Notes Treatment Notes Treatment Clinical Notes Section Notes 06/30/2024 Other proteinuria (ICD-10 - R80.8) Total protein/creatin ine ratio elevated at 0.625. Pt has history of diabetes that has only been known for about 2 months. Will check serum and urine immunofixations . Will also check renal US to rule out any structural issues. Will obtain BMP to establish baseline renal values. Encouraged good glycemic control. Continue on current ACEi for management of HTN, proteinuria, and for renoprotection. Discussed SGLT2i with the pt, as this may be a good option for further management of her diabetes, proteinuria, and for additional renoprotection. Will follow up with pt in 4-6 weeks after the above testing has been done to determine further treatment plan. 06/30/2024 Type 2 diabetes mellitus with diabetic nephropathy (ICD-10 - E11.21) Plan Of Treatment Pending Test Test Name Order Date UA (URINALYSIS, COMPLETE) 06/30/2024 CBC WITH DIFF 06/30/2024 IMMUNOFIXATION-SIEP, BLOOD (SEP,IGAM,IFI X) 06/30/2024 IMMUNOELECTROPHORESIS, RANDOM URINE (UIE P) 06/30/2024 VITAMIN D, 25 LEVEL (TOTAL) 06/30/2024 US Renal 06/30/2024 ELECTROPHORESIS, URINE IMMUNOFIX 025 Total Protein/Creat Random Urine 025 CHEM-R (RENAL FUNC PANEL) w/eGFR CKD-EPI 06/30/2024 Insurance Providers Payer Name Payer Address Payer Phone Subscriber Number Group Number Insured Name Patient Relationship to Insured Coverage Start Date Coverage End Date [facility] DUAL PRIMARY MEDICARE [address] [place] [address] [id number] Temi Vargas Self - [facility] is the [facility] [address] [place], [place] [id number] Temi Vargas Self - patient is the insured Medical (General) History Medical History History ICD Code allergic rhinitis due to allergen anxiety arthritis benign essential HTN colon polyp DM type2 osteoarthritis of knees, bilateral sciatica sleep apnea
--- OUTSIDE RECORDS SUMMARY | 2024-12-25 07:58 | XMS_ITS | Encounter Summary ---
Author Organization [facility] Address [address] [facility] [place] [address] Care Team Providers Care Strategic Planning Manager Name Role Phone Yvonne Frankel MD Primary Care Provider [phone] Yvonne Frankel MD Unavailable Reason for Visit * Reason Comments Med Refill Encounter Details Date Type Department Care Team (Late st Contact Info) Description 01/20/[address] [facility] Medicine [address] [place] [address] Beth Cisse NP Type 2 diabetes mellitus without complication, without long-term current use of insulin (HCC) (Primary Dx); Hypertension, unspecified type Social History Tobacco Use Types Packs/Day Years Used Date Smoking Tobacco: Never Assessed Comments Unknown Sex and Gender Information Value Date Recorded Sex Assigned at Not on file Legal Sex Female 6:58 PM EDT Gender Identity Not on file Sexual Orientation Not on file documented as of this encounter Miscellaneous Notes * Telephone Encounter - Yvonne Frankel MD - 01/21/2023 9:06 AM EDT Approvals with refills documented in this encounter Plan of Treatment Upcoming Encounters Date Type Department Care Team (Late Contact Info) Description 01/05/2025 11:20 AM EDT [facility] [address] [place] [address] Yvonne Frankel MD [address], [place] [id number] documented as of this encounter Visit Diagnoses Diagnosis Type 2 diabetes mellitus without complication, without long-term current use of insulin (HCC)- Primary Hypertension, unspecified type documented in this encounter Care Teams Strategic Planning Manager Relationship Specialty Start Date End Date Yvonne Frankel MD [address] [place], [place] [id number] PCP - General Family Medicine 09/17/22 Yvonne Frankel MD [address] [place], [place] [id number] PCP - Aetwillis 10/28/23 09/26/24 documented as of this encounter
--- OUTSIDE RECORDS SUMMARY | 2024-12-25 07:58 | XMS_ITS | Encounter Summary ---
Author Organization [facility] Address [address] [place] [address] Phone Care Team Providers Care Cigar Bander Hand Name Role Phone Yvonne Frankel MD Primary Care Provider [phone] Encounter Details Date Type Department Care Team (Latest Contact Info) Description 12/14/2024 Travel Social History Tobacco Use Types Packs/Day Years [...] on file documented as of this encounter Functional Status * Over the [...] L PN documented as of this encounter Plan of Treatment Upcoming Encounters Date Type Department Care Team (Late st Contact Info) Description 04/01/2025 2:00 PM EST Clinical Support [facility] [address] [facility] [address] [place] [address] Estella Bonilla, JIMENEZ, CCC-A [address] [facility] [place], [place] [phone] 04/01/2025 2:45 PM EST Office Visit [facility] [address] [place] [phone] [place] [address] [facility] [place] [address] documented as of this encounter Visit Diagnoses Not on filedocumented in this encounter Additional Health Concerns Assessment Noted Time A fall risk assessment has been complete d for the patient 12/14/2024 1:30 PM EDT documented as of this encounter Care Teams Cigar Bander Hand Relationship Specialty Start Date End Date Yvonne Frankel MD [address] [place] [address] PCP - General Family Medicine 08/26/24 documented as of this encounter
--- OUTSIDE RECORDS SUMMARY | 2024-12-25 07:58 | XMS_ITS | Clinical Summary ---
Author Organization [facility] Address [address] [place] [address] Care Team Providers Care Supervisory Training Specialist Name Role Phone Yvonne Frankel MD Primary Care Provider [phone] Allergies Active Allergy Reactions Criticality Noted Date Comments Duloxetine Diarrhea,Other,Unknown 09/18/2023 Medications aspirin 81 mg EC tablet Take 81 mg by mouth in the morning. 4 Active atorvastatin (Lipitor) 40 mg tablet Take 40 mg by mouth in the morning. 4 Active calcium carbonate-vitam in D3 500 mg-3.125 mcg (125 unit) tablet tablet Take 1 tablet by mouth in the morning. 5 10/29/19 26 Active fluticasone (Flonase) 50 mcg/actuation nasal spray Administer 2 sprays into each nostril in the morning. 5 10/29/19 26 Active furosemide (Lasix) 20 mg tablet Take 20 mg by mouth in the morning. 4 Active hydroCHLOROthia zide (HYDRODiuril) 25 mg tablet Take 25 mg by mouth in the morning. 5 Active levothyroxine (Synthroid, Levoxyl) 200 mcg tablet Take by mouth in the morning. 5 10/29/19 26 Active lisinopril 10 mg tablet Take 10 mg by mouth in the morning. 5 Active metFORMIN (Glucophage) 500 mg tablet Take 1,000 mg by mouth with breakfast and with evening meal. 3 Active metoprolol tartrate (Lopressor) 25 mg tablet Take 25 mg by mouth twice a day. 5 Active pantoprazole (ProtoNix) 40 mg EC tablet Take 40 mg by mouth before breakfast. 5 Active potassium chloride (Klor-Con) 20 mEq packet Take 20 mEq by mouth in the morning. Active sertraline (Zoloft) 50 mg tablet Take 50 mg by mouth in the morning. 4 Active traZODone (Desyrel) 50 mg tablet Take by mouth at bedtime. 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 Bilateral primary osteoarthritis of knee 024 Tobacco user 04/04/2023 Abnormal liver ultrasound 03/07/2023 Acquired hypothyroidism 03/07/2023 Anxiety 03/07/2023 Arthritis 03/07/2023 Benign essential hypertension 03/07/2023 Bipolar I disorder 03/07/2023 Colon polyp 03/07/2023 Overview (11/30/2024): TUBULOVILLOUS ADENOMA Constipation 03/07/2023 Type 2 diabetes mellitus wit h stage 3 chronic kidney disease, without long-term current use of insulin 03/07/2023 Elevated liver enzymes 03/07/2023 SARAH (obstructive sleep apnea) 03/07/2023 Osteoarthritis of knee 03/07/2023 RBBB 03/07/2023 Stage 3 chronic kidney disease 03/07/2023 Hearing loss 04/11/2020 Tinnitus of left ear 04/11/2020 Abnormal cardiovascular stress test 08/22/2018 Overview (11/30/2024): Added automatically from request for surgery [id number] Chest pain 08/22/2018 History of thyroidectomy, total 07/25/2017 Thyroid nodule 07/22/2017 Body mass index 50.0-59.9, adult 06/03/2017 Encounters Date Type Department Care Team Description 11/30/2024 1:00 PM EDT Office Visit [facility] [address] [place] [address] Gio Darden MD Sinus pause (Primary Dx); Sinus bradycardia; SARAH (obstructive sleep apnea); Primary hypertension; Postural dizziness with near syncope; Shortness of breath; Mixed hyperlipidemia; Morbid (severe) obesity due to excess calories (CMS/HCC); RBBB 11/27/[address] [facility] [address] [place] [address] Provider, MD Jerome from Last 3 Months Family History Medical History Relation Name Comments Heart attack Father COPD Mother Relation Name Status Comments Father Mother Social History Tobacco Use Types Packs/Day Years Used Date Smoking Tobacco: Some Days Cigarettes Smokeless Tobacco: Current Tobacco Cessation:Ready to Q uit: Not Asked; Counseling Given: Not Answered Comments:vape Alcohol Use Standard Drinks/Week Comments Yes 0 (1 standard drink = 0.6 oz pur e alcohol) occasional Comments Unknown Sex and Gender Information Value Date Recorded Sex Assigned at Female 11/30/2024 1:07 PM EDT Legal Sex Female 11:00 AM EDT Gender Identity Female 11/30/2024 1:07 PM EDT Sexual Orientation Heterosexual or Straight 07/2024 1:07 PM EDT Last Filed Vital Signs Vital Sign Reading Time Taken Comments Blood Pressure 182/110 11/30/2024 1:27 PM EDT Pulse 67 11/30/2024 1:27 PM EDT Temperature - - Respiratory Rate - - Oxygen Saturation 97% 11/30/2024 1:27 PM EDT Inhaled Oxygen Concentration - - Weight 147 kg (323 lb) 11/30/2024 1:27 PM EDT Height 167.6 cm (5' 6 ) 11/30/2024 1:27 PM EDT Body Mass Index 52.13 11/30/2024 1:27 PM EDT Plan of Treatment Upcoming Encounters Date Type Department Care Team (Late st Contact Info) Description 12/29/2024 11:15 AM EDT Office Visit [facility] [address] [place] [address] Cayden Mata MD [address] [place] [address] Health Maintenance Due Date Last Done Comments CT Colonography 1955 Diabetes: Hemoglobin A1C 1955 FIT-DNA 1955 FIT 1955 FOBT 1955 Medicare Annual Wellness (AWV) 1955 Sigmoidoscopy 1955 Diabetes: Retinopathy Screening 1963 Depression Screening 1965 Adult Tetanus 1975 Fall Risk Screening 2018 Pneumococcal Vaccine: 50+ Years (3 of 3 - PCV20 or PCV21) 08/27/2023 08/26/2018, 02/20/2013 COVID-19 Vaccine (1 - 2023-2 5 season) 2023 Zoster Vaccines (2 of 2) 02/24/2024 12/30/2023 Diabetes: Urine Protein Screening 12/25/2024 12/26/2023 Influenza Vaccine (#1) 2024 , 03/07/2023 Mammogram 02/24/2026 02/25/2024 Colonoscopy 10/02/2034 10/02/2024, 10/02/2024, 11/20/2018 Colorectal Cancer Screening 10/02/2034 HIB Vaccines Aged Out No longer eligi ble based on patient's age to complete this topic HPV Vaccines Aged Out No longer eligi ble based on patient's age to complete this topic IPV Vaccines Aged Out No longer eligi ble based on patient's age to complete this topic Meningococcal B Vaccine Aged Out No l onger eligible based on patient's age to complete this topic Meningococcal Vaccine Aged Out No woody jovani eligible based on patient's age to complete this topic Rotavirus Vaccines Aged Out No longer eligible based on patient's age to complete this topic Procedures Procedure Name Priority Date/Time Associated Diagnosis Comments ECG 12-LEAD Routine 10/17/2024 12:45 PM EDT from Last 3 Months Results * ECG 12 lead (10/17/2024 12:45 PM EDT) us Historical Provider ECG ORDERABLES Final Res ult from Last 3 Months Insurance [employer] MEDICARE [place]ICAID [place] Care Teams Supervisory Training Specialist Relationship Specialty Start Date End Date Yvonne Frankel MD [address] [place] [address] PCP - General Family Medicine 11/27/24
--- OUTSIDE RECORDS SUMMARY | 2024-12-25 07:59 | XMS_ITS | Encounter Summary ---
Author Organization [facility] Address [address] [place] [address] Care Team Providers Care Visualization Developer Name Role Phone Yvonne Frankel MD Primary Care Provider [phone] Encounter Details Date Type Department Care Team (Late st Contact Info) Description 12/11/2024 Patient Outreach [facility] [employer] [address] [place] [address] Jenna Willson, MICHELLE [address] [place] [address] Social History Tobacco Use Types Packs/Day Years Used Date Smoking Tobacco: Every Day Cigarettes Smokeless Tobacco: Never Alcohol Use Standard Drinks/Week Comments Never 0 (1 standard drink = 0.6 oz pur e alcohol) caffeine 1-2 cups/day; coffee B1300 Health Literacy Answer Date Recor ded How often do you need to hav e someone help you when you read instructions, pamphlets, or other written material from your doctor or pharmacy? Never 12/13/2023 Humiliation, Afraid, Rape, and Kick questionnair e Answer Date Recorded Within the last year, have y ou been afraid of your partner or ex-partner? No 12/13/2023 Within the last year, have y ou been humiliated or emotionally abused in other ways by your partner or ex-partner? No Within the last year, have y ou been kicked, hit, slapped, or otherwise physically hurt by your partner or ex-partner? No 12/13/2023 Within the last year, have y ou been raped or forced to have any kind of sexual activity by your partner or ex-partner? No 12/13/2023 Social Connection and Isolat ion Panel [NHANES] Answer Date Recorded In a typical week, how many times do you talk on the phone with family, friends, or neighbors? More than three times a week 12/13/2023 How often do you get togethe r with friends or relatives? More than three times a week 12/13/2023 How often do you attend [facility] or nondenominational services? More than 4 times per year 12/13/2023 Do you belong to any clubs o r organizations such as zoroastrian groups, unions, fraternal or athletic groups, or school groups? No 12/13/2023 Attends Club or Organization Meetings Not on anson e 12/13/2023 Are you , , di vorced, , never , or living with a partner? 12/13/2023 AUDIT-C Answer Date Recorded Q1: How often do you have a drink containing alc ohol? 2-4 times a month 12/13/2023 Q2: How many drinks containi ng alcohol do you have on a typical day when you are drinking? 1 or 2 12/13/2023 Q3: How often do you have si x or more drinks on one occasion? Never 12/13/2023 Overall Financial Resource Strain (CARDIA) Answe r Date Recorded How hard is it for you to pa y for the very basics like food, housing, medical care, and heating? Not very hard 12/13/2023 PHQ-2 Answer Date Recorded Patient Health Questionnaire-2 Score 0 12/26/2023 [facility] - Occupational Stress Questionnaire Answer Date Recorded Do you feel stress - tense, restless, nervous, or anxious, or unable to sleep at night because your mind is troubled all the time - these days? Not at all 12/13/2023 Exercise Vital Sign Answer Date Recorde d On average, how many days pe r week do you engage in moderate to strenuous exercise (like a brisk walk)? 7 days 12/13/2023 On average, how many minutes do you engage in exercise at this level? 10 min 12/13/2023 Hunger Vital Sign Answer Date Recorded Within the past 12 months, y ou worried that your food would run out before you got the money to buy more. Never true 12/13/19 24 Within the past 12 months, t he food you bought just didn't last and you didn't have money to get more. Never true 12/13/2023 PRAPARE - Transportation Answer Date Re corded In the past 12 months, has l ack of transportation kept you from medical appointments or from getting medications? No 11/27 In the past 12 months, has l ack of transportation kept you from meetings, work, or from getting things needed for daily living? No 12/13/2023 Housing Stability Vital Sign Answer Star e Recorded Unable to Pay for Housing in the Last Year Not o n file 07/25/2023 In the last 12 months, how many places have you lived? 1 07/25/2023 In the last 12 months, was t here a time when you did not have a steady place to sleep or slept in a snf (including now)? No 07/25/2023 Housing Stability Vital Sign Answer Star e Recorded In the last 12 months, was t here a time when you were not able to pay the mortgage or rent on time? No 12/13/2023 In the past 12 months, how m any times have you moved where you were living? 0 12/13/2023 At any time in the past 12 m [facility], were you homeless or living in a snf (including now)? No 12/13/2023 Comments Unknown Sex and Gender Information Value Date Recorded Sex Assigned at Not on file Legal Sex Female 6:58 PM EDT Gender Identity Not on file Sexual Orientation Not on file documented as of this encounter Progress Notes * MICHELLE Lee - 12/11/2024 3:31 PM EDT <December 11, 2024, 15:31 - MICHELLE Lee> Call from Adelina. States she left message for Oswaldo Olivares LPN today. She wants to meet to go over pt's medications. She has questions re: med changes from GI, states that multiple atbs were ordered for pt in addition to a stomach pill, and pt is supposed to also hold a medication for 2 weeks. States these details are on paperwork at pt's house and she can bring paperwork to visit. Advised we would also request records from GI. Adelina voices frustration that all of pt's providers have different med-lists and she does not know what pt is supposed to be taking. MICHELLE advises that there can be little to no communication between provider offices when medications are changed, and it is up to the patient to report new or changed medications when presenting to office visits. Pt has restarted lasix after being out of it for sometime. Adelina states she did not understand that this was a water pill and that pt needed it to keep legs from swelling. Advised FINISHING TRIMMER would discuss with advocate and she'd follow up to plan time to meet. * MICHELLE Lee - 12/11/2024 3:31 PM EDT <December 11, 2024, 16:28 - MICHELLE Lee> Records request faxed to [facility] requesting most recent visit note and med-list * Oswaldo Olivares LPN - 12/11/2024 3:31 PM EDT <December 15, 2024, 08:45 - Oswaldo Olivares LPN> Phone communication initiated to Patient, Temi Vargas, 1955, at [phone]. Call rings to voicemail. This nurse records voice message requesting return call at [phone]. * Oswaldo Olivares LPN - 12/11/2024 3:31 PM EDT <December 18, 2024, 11:45 - Oswaldo Olivares LPN> Receive return call from Patient's, Temi Vargas, 1955, daughter, Adelina. Adelina apologizes for the late return of call. Adelina verbalizes frustration that specialty offices do not have same medication list as primary care et this caused some confusion with medication ordered following ear procedure. Adelina mentions pharmacy had advised against use of ulcer medication with antibiotic et Adelina did hold this medication from medication organizer box while completing antibiotic regimen. Adelina mentions Patient did not administer potassium or Lasix for approximately two weeks prior to office visit on December 07 et these medications have been restarted. This nurse advises Adelina that medication list should be provided at all specialty visits to assure other offices have an updated medication list. Adelina verbalizes understanding. This nurse offers to schedule visit with Adelina/Patient next week to review medication listet assist with medication organizer boxes. Visit scheduled for December 22 at 0900. Adelina voices noadditional Patient need at this time. Adelina agrees to contact this nurse at [phone], should a question, need, or concern arise. documented in this encounter Miscellaneous Notes * Addendum Note - Oswaldo Olivares LPN - 12/11/2024 3:31 PM EDTAddended by: OSWALDO OLIVARES on: 12/18/2024 02:46 PM Modules accepted: Orders documented in this encounter Plan of Treatment Upcoming Encounters Date Type Department Care Team (Late st Contact Info) Description 01/05/2025 11:20 AM EDT [facility] [address] [place] [phone] Yvonne Frankel MD [address] [place] [address] documented as of this encounter Visit Diagnoses Diagnosis Type 2 diabetes mellitus with stage 3 chronic kidney disease, without long-term current use of insulin, unspecified whether stage 3a or 3b CKD (HCC)- Primary Hypertension, unspecified type documented in this encounter Additional Health Concerns Assessment Noted Time PHQ-9 Depression Total Score: 0 12/26/19 24 11:00 AM EDT documented as of this encounter Care Teams Visualization Developer Relationship Specialty Start Date End Date Yvonne Frankel MD [address] [place] [address] PCP - General Family Medicine 09/17/22 documented as of this encounter
--- OUTSIDE RECORDS SUMMARY | 2024-12-25 07:59 | XMS_ITS | Encounter Summary ---
Author Organization [employer] Address [facility] [id number] [address] [place] [address] Care Team Providers Care Asphalt Worker Name Role Phone Yvonne Frankel MD Primary Care Provider [phone] Reason for Visit * Reason Onset Date Comments Med Refill 09/19/2021 Encounter Details Date Type Department Care Team (Late st Contact Info) Description 09/19/2021 Refill [facility] [address] [place] [address] Sabine Lal CMA Postsurgical hypothyroidism Social History Tobacco Use Types Packs/Day Years Used Date Smoking Tobacco: Every Day Cigarettes Smokeless Tobacco: Never Alcohol Use Standard Drinks/Week Comments Yes 0 (1 standard drink = 0.6 oz pur e alcohol) occasional PHQ-2 Answer Date Recorded Total Score 0 01/29/2019 Childcare Answer Date Recorded Childcare Unknown 09/25/2018 Employment Answer Date Recorded Employment Unknown 09/25/2018 Purpose - Life Answer Date Recorded Purpose and direction in life Unknown Comments No Sex and Gender Information Value Date Recorded Sex Assigned at Not on file Legal Sex Female 11:21 AM EDT Gender Identity Not on file Sexual Orientation Not on file documented as of this encounter Miscellaneous Notes * Telephone Encounter - Marisabel Sierra PA-C - 09/19/2021 11:43 AM EDT Pt needs labs and an appt, last seen in Apr 2020 and labs were last drawn in Apr, please contat pt to schedule appt and advise her to have her labs drawn prior to and also is she taking synthroid/levothyroxine currently as prescribed? documented in this encounter Plan of Treatment Not on file documented as of this encounter Visit Diagnoses Diagnosis Postsurgical hypothyroidism documented in this encounter Additional Health Concerns Assessment Noted Time PHQ-9 Depression Total Score: 0 01/30/20 19 3:19 PM EDT documented as of this encounter Care Teams Asphalt Worker Relationship Specialty Start Date End Date Yvonne Frankel MD [address] [place] [address] PCP - General Family Medicine 10/17/24 documented as of this encounter
--- OUTSIDE RECORDS SUMMARY | 2024-12-25 07:59 | XMS_ITS | Encounter Summary ---
Author Organization [facility] Address [address] [facility] [place] [address] Care Team Providers Care Elementary School Social Worker Name Role Phone Yvonne Frankel MD Primary Care Provider [phone] Yvonne Frankel MD Unavailable Reason for Visit * Reason Comments Med Refill Encounter Details Date Type Department Care Team (Late Contact Info) Description 10/07/2022 Refill [facility] [address] [facility] [place] [address] Yvonne Frankel MD [address] [facility] [place] [address] Other specified hypothyroidism (Primary Dx) Social History Tobacco Use Types Packs/Day Years Used Date Smoking Tobacco: Never Assessed Comments Unknown Sex and Gender Information Value Date Recorded Sex Assigned at Not on file Legal Sex Female 6:58 PM EDT Gender Identity Not on file Sexual Orientation Not on file documented as of this encounter Miscellaneous Notes * Telephone Encounter - Yvonne Frankel MD - 10/08/2022 9:01 AM EDT Approvals with refills documented in this encounter Plan of Treatment Upcoming Encounters Date Type Department Care Team (Late Contact Info) Description 01/05/2025 11:20 AM EDT Office Visit [facility] Medicine [address] [place] [address] Yvonne Frankel MD [address] [place], [place] [id number] documented as of this encounter Visit Diagnoses Diagnosis Other specified hypothyroidism- Primary documented in this encounter Care Teams [employer] Social Worker Relationship Specialty Start Date End Date Yvonne Frankel MD [address] [place], [place] [id number] PCP - General Family Medicine 09/17/22 Yvonne Frankel MD [address] [place], [place] [id number] PCP - [employer] 10/28/23 09/26/24 documented as of this encounter
--- OUTSIDE RECORDS SUMMARY | 2024-12-25 07:59 | XMS_ITS | Encounter Summary ---
Author Organization [facility] Address [address] [place] [address] Care Team Providers Care Hand Painter Name Role Phone Yvonne Frankel MD Primary Care Provider [phone] Encounter Details Date Type Department Care Team (Latest Contact Info) Description 12/22/2024 Travel Social History Tobacco Use Types Packs/Day [...] week 12/13/2023 How often do you attend chur or mosque services? More than 4 times per year 12/13/2023 Do you belong to any clubs o r organizations such as protestant groups, unions, fraternal or athletic groups, or [...] Recorded Patient Health Questionnaire-2 Score 0 12/26/2023 [facility] Occup[facility] ional Health - Occupational [...] place to sleep or slept in a custodial (including now)? No 07/25/2023 Housing Stability Vital Sign Answer Star e Recorded In the last 12 months, was t here a time when you were not able to pay the mortgage or rent on time? No 12/13/2023 In the past 12 months, how m any times have you moved where you were living? 0 12/13/2023 At any time in the past 12 m [facility], were you homeless or living in a custodial (including now)? No 12/13/2023 Comments Unknown Sex and Gender Information Value Date Recorded Sex Assigned at Not on file Legal Sex Female 6:58 PM EDT Gender Identity Not on file Sexual Orientation Not on file documented as of this encounter Plan of Treatment Upcoming Encounters Date Type Department Care Team (Late st Contact Info) Description 01/05/2025 11:20 AM EDT Office Visit [facility] [address] [place] [address] Yvonne Frankel MD [address] [facility] [address] [place], [place] [address] documented as of this encounter Visit Diagnoses Not on filedocumented in this encounter Additional Health Concerns Assessment Noted Time PHQ-9 Depression Total Score: 0 12/26/19 24 11:00 AM EDT documented as of this encounter Care Teams Hand Painter Relationship Specialty Start Date End Date Yvonne Frankel MD [address] [facility] [address] [place], [place] [phone] PCP - General Family Medicine 09/17/22 documented as of this encounter
--- OUTSIDE RECORDS SUMMARY | 2024-12-25 07:59 | XMS_ITS | Encounter Summary ---
Author Organization [facility] Address [address] [facility] [place] [address] Care Team Providers Care Engineer Third Assistant Name Role Phone Yvonne Frankel MD Primary Care Provider [phone] Yvonne Frankel MD Unavailable Encounter Details Date Type Department Care Team (Late st Contact Info) Description 12/25/2022 Abstract [facility] Family Medicine [address] [place] [address] Yvonne Frankel MD [address] [place], [place] [phone] Social History Tobacco Use Types Packs/Day Years [...] Description 01/05/2025 11:20 AM EDT Office Visit [facility] Family Medicine [address] [place] [address] Yvonne Frankel MD [address] [place], [place] [address] documented as of this encounter Visit Diagnoses Not on filedocumented in this encounter Care Teams Engineer Third Assistant Relationship Specialty Start Date End Date Yvonne Frankel MD [address] [place], [place] [phone] PCP - General Family Medicine 09/17/22 Yvonne Frankel MD [address] [place] [address] PCP - [employer] 10/28/23 09/26/24 documented as of this encounter
--- OUTSIDE RECORDS SUMMARY | 2024-12-25 07:59 | XMS_ITS | Encounter Summary ---
Author Organization [employer] Address [facility] [id number] [address] [place] [address] Care Team Providers Care Family And Consumer Education Teacher Name Role Phone Yvonne Frankel MD Primary Care Provider [phone] Encounter Details Date Type Department Care Team (Late st Contact Info) Description 05/17/2020 [facility] [address] [place] [address] Shakira Gutierrez RMA Social History Tobacco Use Types Packs/Day Years [...] on file Sexual Orientation Not on file COVID-19 Exposure Response Date Recorded In the last month, have you been in contact with someone who was confirmed or suspected to have Coronavirus / COVID-19? No / Unsure 05/17/2020 2:56 PM EST documented as of this encounter Miscellaneous Notes * Telephone Encounter - LISA Gonzales - 05/17/2020 2:08 PM EST Tried to call patient to inform her that we put some lab orders in for her to be drawn. Her appointment with us tomorrow is to follow up on labs which she has not had yet. We will need to reschedule her appointment for a different day. Patient was last seen for her ears and if she would like to keep her appointment to follow up with her ears we can do that if needed. LISA Gonzales 05/17/20 1410 documented in this encounter Plan of Treatment Not on file documented as of this encounter Visit Diagnoses Not on filedocumented in this encounter Additional Health Concerns Assessment Noted Time PHQ-9 Depression Total Score: 0 01/30/20 3:19 PM EDT documented as of this encounter Care Teams Family And Consumer Education Teacher Relationship Specialty Start Date End Date Yvonne Frankel MD [address] [place] [address] PCP - General Family Medicine 10/17/24 documented as of this encounter
--- OUTSIDE RECORDS SUMMARY | 2024-12-25 07:59 | XMS_ITS | Encounter Summary ---
[facility] [employer] [facility] Address [facility] [id number] [address] [place] [address] Care Team Providers Care Java Web Services Developer Name Role Phone Yvonne Fraknel MD Primary Care Provider [phone] Reason for Visit * Reason Comments Med Refill Encounter Details Date Type Department Care Team (Late st Contact Info) Description 08/24/2017 Refill [facility] Th[facility] [address] [place] [address] [place] [phone] Marisabel Sierra, PA-C [address] [facility] [address] [place] [address] S/P thyroidectomy Social History Tobacco Use Types Packs/Day Years Used Date Smoking Tobacco: Every Day Cigarettes Smokeless Tobacco: Never Alcohol Use Standard Drinks/Week Comments Yes 0 (1 standard drink = 0.6 oz pur e alcohol) occasional Comments No Sex and Gender Information Value Date Recorded Sex Assigned at Not on file Legal Sex Female 11:21 AM EDT Gender Identity Not on file Sexual Orientation Not on file documented as of this encounter Plan of Treatment Not on file documented as of this encounter Visit Diagnoses Diagnosis S/P thyroidectomy Other postprocedural status documented in this encounter Care Teams Java Web Services Developer Relationship Specialty Start Date End Date Yvonne Frankel MD [address] [place] [address] PCP - General Family Medicine 10/17/24 documented as of this encounter
--- OUTSIDE RECORDS SUMMARY | 2024-12-25 07:59 | XMS_ITS | Encounter Summary ---
Author Organization [facility] Address [id number] [address] [place] [address] Care Team Providers Care .Net Programmer Name Role Phone Yvonne Frankel MD Primary Care Provider [phone] Reason for Visit * Reason Comments Med Refill Encounter Details Date Type Department Care Team (Late st Contact Info) Description 08/02/2021 Refill [facility] [address] [place] [address] Chris Buckner MD PhD [address] [address] RETIRED 11/27/2023 [place] [address] Postsurgical hypothyroidism Social History Tobacco Use Types [...] documented as of this encounter Care Teams .Net Programmer Relationship Specialty Start Date End Date Yvonne Frankel MD [address] [place] [address] PCP - General Family Medicine 10/17/24 documented as of this encounter
--- OUTSIDE RECORDS SUMMARY | 2024-12-25 07:59 | XMS_ITS | Encounter Summary ---
Author Organization [facility] Address [address] [facility] [place] [address] Care Team Providers Care Activities Coordinator Name Role Phone Yvonne Frankel MD Primary Care Provider [phone] Yvonne Frankel MD Unavailable Reason for Visit * Reason Comments Med Refill Encounter Details Date Type Department Care Team (Late Contact Info) Description 01/20/2023 Refill [facility] Medicine [address] [facility] [place] [address] Yvonne Frankel MD [address] [place], [place] [phone] Other specified hypothyroidism Social History Tobacco Use Types Packs/Day Years Used Date Smoking Tobacco: Never Assessed Comments Unknown Sex and Gender Information Value Date Recorded Sex Assigned at Not on file Legal Sex Female 6:58 PM EDT Gender Identity Not on file Sexual Orientation Not on file documented as of this encounter Miscellaneous Notes * Telephone Encounter - Yvonne Frankel MD - 01/21/2023 9:14 AM EDT Approvals with refills documented in this encounter Plan of Treatment Upcoming Encounters Date Type Department Care Team ([facility] Contact Info) Description 01/05/2025 11:20 AM EDT Office Visit [facility] Medicine [address] [facility] [place] [address] Yvonne Frankel MD [facility] [place] [address] documented as of this encounter Visit Diagnoses Diagnosis Other specified hypothyroidism documented in this encounter Care Teams Activities Coordinator Relationship Specialty Start Date End Date Yvonne Frankel MD [address] [place], [place] [phone] PCP - General Family Medicine 09/17/22 Yvonne Frankel MD [address] [place], [place] [phone] PCP - [employer] 10/28/23 09/26/24 documented as of this encounter
--- OUTSIDE RECORDS SUMMARY | 2024-12-25 07:59 | XMS_ITS | Encounter Summary ---
Author Organization [facility] Address [id number] [address] [place] [address] Care Team Providers Care Kitchen Worker Name Role Phone Yvonne Frankel MD Primary Care Provider [phone] Reason for Visit * Reason Onset Date Comments Sleep Lab 12/23/2024 PT Inquiry Encounter Details Date Type Department Care Team (Late st Contact Info) Description 12/23/2024 Telephone [facility] [address] [facility] [place] [address] Transcribe, Orders Support User Sleep Lab (PT Inquiry) Social History Tobacco Use Types Packs/Day Years Used Date Smoking Tobacco: Every Day Cigarettes 1.5 55.7 Started: 1972 Smokeless Tobacco: Never Alcohol Use Standard Drinks/Week Comments Yes 0 (1 standard drink = 0.6 oz pur e alcohol) occasional PHQ-2 Answer Date Recorded Total Score 0 01/29/2019 Childcare Answer Date Recorded Childcare Unknown 09/25/2018 Employment Answer Date Recorded Employment Unknown 09/25/2018 Hunger Screening Answer Date Recorded Within the past 12 months we worried whether our food would run out before we got money to buy more. Never True 10/17/2024 Within the past 12 months th e food we bought just didn't last and we didn't have money to get more. Never True 10/17/2024 Purpose - Life Answer Date Recorded Purpose and direction in life Unknown Comments No Sex and Gender Information Value Date Recorded Sex Assigned at Not on file Legal Sex Female 11:21 AM EDT Gender Identity Not on file Sexual Orientation Not on file documented as of this encounter Miscellaneous Notes * Telephone Encounter - Santos Gaurav - 12/23/2024 12:09 PM EDT PT daughter called LM to schedule, called daughter back informed her we did not have an order for asleep study gave her our fax number to give to the drs office documented in this encounter Plan of Treatment Not on file documented as of this encounter Visit Diagnoses Not on filedocumented in this encounter Additional Health Concerns Assessment Noted Time PHQ-9 Depression Total Score: 0 01/30/20 19 3:19 PM EDT documented as of this encounter Care Teams Kitchen Worker Relationship Specialty Start Date End Date Yvonne Frankel MD [address] [place] [address] PCP - General Family Medicine 10/17/24 documented as of this encounter
--- OUTSIDE RECORDS SUMMARY | 2024-12-25 07:59 | XMS_ITS | Encounter Summary ---
Author Organization [facility] [employer] Address [facility] [id number] [address] [place] [address] Care Team Providers Care Sled Maker Name Role Phone Yvonne Frankel MD Primary Care Provider [phone] Reason for Visit * Reason Comments Med Change Request Encounter Details Date Type Department Care Team (Late st Contact Info) Description 09/07/2024 Refill [facility] General Surgery [address] [place] [phone] Sue Arias, WEIGHER AND MIXER-MANAGER SOURCING [address] [place] [address] Constipation, unspecified constipation type Social History Tobacco Use Types Packs/Day [...] got money to buy more. Never True 09/07/2024 Within the past 12 months th e food we bought just didn't last and we didn't have money to get more. Never True 09/07/2024 Purpose - Life Answer Date Recorded Purpose and direction in life Unknown Comments No Sex and Gender Information Value Date Recorded Sex Assigned at Not on file Legal Sex Female 11:21 AM EDT Gender Identity Not on file Sexual Orientation Not on file documented as of this encounter Plan of Treatment Not on file documented as of this encounter Visit Diagnoses Diagnosis Constipation, unspecified constipation type documented in this encounter Additional Health Concerns Assessment Noted Time PHQ-9 Depression Total Score: 0 01/30/20 19 3:19 PM EDT documented as of this encounter Care Teams Sled Maker Relationship Specialty Start Date End Date Yvonne Frankel MD [address] [place] [address] PCP - General Family Medicine 10/17/24 documented as of this encounter
--- OUTSIDE RECORDS SUMMARY | 2024-12-25 07:59 | XMS_ITS | Encounter Summary ---
Author Organization [employer] Address [facility] [id number] [address] [place] [address] Care Team Providers Care Res Counselor Name Role Phone Yvonne Frankel MD Primary Care Provider [phone] Reason for Visit * Reason Onset Date Comments Med Refill 11/06/2017 Encounter Details Date Type Department Care Team (Late st Contact Info) Description 11/06/2017 Refill [facility] [address] [facility] [place] [address] Montse Cruz RMA S/P thyroidectomy Social History Tobacco Use Types [...] encounter Miscellaneous Notes * Telephone Encounter - Chris Buckner MD - 11/20/2017 10:13 AM EDT Patient was prescribed 118 mcg of Synthroid and has been taking since * Telephone Encounter - LISA Nevarez - 11/06/2017 2:48 PM EDT Patient needs medication refill on synthroid. LISA Nevarez 11/06/17 1449 documented in this encounter Plan of Treatment Not on file documented as of this encounter Visit Diagnoses Diagnosis S/P thyroidectomy Other postprocedural status documented in this encounter Care Teams Res Counselor Relationship Specialty Start Date End Date Yvonne Frankel MD [address] [place] [address] PCP - General Family Medicine 10/17/24 documented as of this encounter
--- OUTSIDE RECORDS SUMMARY | 2024-12-25 07:59 | XMS_ITS | Encounter Summary ---
Author Organization [facility] Address [address] [facility] [place] [place] [address] Care Team Providers Care Material Controller Name Role Phone Yvonne Frankel MD Primary Care Provider [phone] Yvonne Frankel MD Unavailable Encounter Details Date Type Department Care Team (Late st Contact Info) Description 02/03/2024 Abstract [facility] POPULATION [facility] [address] [place] [address] Jenna Willson, DESIGN ENGINEERING INTERN [address] [place] [address] Social History Tobacco Use Types Packs/Day Years [...] week 12/13/2023 How often do you attend [facility] or episcopal services? More than 4 times per year 12/13/2023 Do you belong to any clubs o r organizations such as roman catholic groups, unions, fraternal or athletic groups, or [...] Recorded Patient Health Questionnaire-2 Score 0 12/26/2023 [facility] of Occupat ional Health - Occupational Stress [...] place to sleep or slept in a skilled nursing (including now)? No 07/25/2023 Housing Stability Vital Sign Answer Star e Recorded In the last 12 months, was t here a time when you were not able to pay the mortgage or rent on time? No 12/13/2023 In the past 12 months, how m any times have you moved where you were living? 0 12/13/2023 At any time in the past 12 m [facility], were you homeless or living in a skilled nursing (including now)? No 12/13/2023 Comments Unknown Sex and Gender Information Value Date Recorded Sex Assigned at Not on file Legal Sex Female 6:58 PM EDT Gender Identity Not on file Sexual Orientation Not on file documented as of this encounter Plan of Treatment Upcoming Encounters Date Type Department Care Team (Late st Contact Info) Description 01/05/2025 11:20 AM EDT Office Visit [facility] [address] [facility] [place] [address] Yvonne Frankel MD [address] [place] [address] documented as of this encounter Visit Diagnoses Not on filedocumented in this encounter Additional Health Concerns Assessment Noted Time PHQ-9 Depression Total Score: 0 12/26/19 11:00 AM EDT documented as of this encounter Care Teams Material Controller Relationship Specialty Start Date End Date Yvonne Frankel MD [address] [place] [address] PCP - General Family Medicine 09/17/22 Yvonne Frankel MD [address] [place] [address] PCP - [employer] 10/28/23 09/26/24 documented as of this encounter
--- OUTSIDE RECORDS SUMMARY | 2024-12-25 07:59 | XMS_ITS | Encounter Summary ---
Author Organization [facility] Address [address] [facility] [place] [address] Care Team Providers Care Marine Engine Driver Name Role Phone Yvonne Frankel MD Primary Care Provider [phone] Yvonne Frankel MD Unavailable Reason for Visit * Reason Comments Med Refill Encounter Details Date Type Department Care Team (Late Contact Info) Description 10/07/2022 [facility] [address] [place] [address] Beth Cisse NP Hypertension, unspecified type (Primary Dx) Social History Tobacco Use Types Packs/Day Years Used Date Smoking Tobacco: Never Assessed Comments Unknown Sex and Gender Information Value Date Recorded Sex Assigned at Not on file Legal Sex Female 6:58 PM EDT Gender Identity Not on file Sexual Orientation Not on file documented as of this encounter Miscellaneous Notes * Telephone Encounter - Yvonne Frankel MD - 10/08/2022 9:58 AM EDT Approvals with refills documented in this encounter Plan of Treatment Upcoming Encounters Date Type Department Care Team (Late Contact Info) Description 01/05/2025 11:20 AM EDT Office Visit [facility] [address] [place] [address] Yvonne Frankel MD [address] [place] [address] documented as of this encounter Visit Diagnoses Diagnosis Hypertension, unspecified type- Primary documented in this encounter Care Teams Marine Engine Driver Relationship Specialty Start Date End Date Yvonne Frankel MD [address] [place] [address] PCP - General Family Medicine 09/17/22 Yvonne Frankel MD [address] [place] [address] PCP - [employer] 10/28/23 09/26/24 documented as of this encounter
--- OUTSIDE RECORDS SUMMARY | 2024-12-25 07:59 | XMS_ITS | Encounter Summary ---
Author Organization [facility] Address [facility] [id number] [address] [place] [address] Care Team Providers Care Clamshell Operator Name Role Phone Yvonne Frankel MD Primary Care Provider [phone] Reason for Visit * Reason Comments Med Refill Encounter Details Date Type Department Care Team (Late st Contact Info) Description 06/02/2021 Refill [facility] [address] [place] [id number] Chris Buckner MD PhD [address] [address] RETIRED 11/27/2023 [place] [address] Postsurgical hypothyroidism Social History Tobacco Use Types [...] documented as of this encounter Care Teams Clamshell Operator Relationship Specialty Start Date End Date Yvonne Frankel MD [address] [place] [address] PCP - General Family Medicine 10/17/24 documented as of this encounter
--- OUTSIDE RECORDS SUMMARY | 2024-12-25 07:59 | XMS_ITS | Clinical Summary ---
Author Organization [facility] Address [address] [place] [address] Care Team Providers Care Workday Manager Name Role Phone Yvonne Frankel MD Primary Care Provider [phone] Allergies Active Allergy Reactions Criticality Noted Date Comments Duloxetine Hcl Diarrhea 09/18/2023 Medications atorvastatin (Lipitor) 40 MG tabletIndications: Hypertension, unspecified type Take 1 tablet (40 mg) by mouth in the morning. 90 tablet 10/29/19 25 Active Calcium Carb-Cholecalcifer ol (Oyster Shell Calcium + D3) 500-10 MG-MCG tabletIndications: Acquired hypothyroidism,Vit elizondo D deficiency Take 1 tablet by mouth in the morning. 90 tablet 10/29/19 026 Active fluticasone (Flonase) 50 MCG/ACT nasal sprayIndications:B enign essential hypertension,Acute otitis media, unspecified otitis media type Administer 1-2 sprays into each nostril Daily Shake gently. Before first use, prime pump. After use, clean tip and replace cap. 48 mL 10/29/19 026 Active levothyroxine (Synthroid) 200 MCG tabletIndications: Acquired hypothyroidism Take 1 tablet (200 mcg) by mouth in the morning. Take before meals. 90 tablet 10/29/19 026 Active sertraline (Zoloft) 50 MG tabletIndications: Bipolar I disorder (HCC),Anxiety Take 1 tablet (50 mg) by mouth in the morning. 90 tablet 10/29/19 026 Active traZODone (Desyrel) 50 MG tabletIndications: Bipolar I disorder (HCC),Anxiety Take 1 tablet (50 mg) by mouth as needed at bedtime for sleep or depression 90 tablet 3 10/29/19 25 026 Active aspirin (Aspirin Low Dose) 81 MG EC tabletIndications: Hypertension, unspecified type Take 1 tablet (81 mg) by mouth in the morning. 90 tablet 11 10/30/19 25 Active ergocalciferol (Vitamin D-2) 1.25 MG (26227 UT) capsuleIndications :Vitamin D deficiency Take 1 capsule (1.25 mg) by mouth 1 (one) time per week 12 capsule 11/04/19 25 025 Active lisinopril 10 MG tabletIndications: Benign essential hypertension Take 1 tablet (10 mg) by mouth Daily 30 tablet 5 11/17/19 25 026 Active potassium chloride CR (K-Tab) 20 MEQ ER tabletIndications: Hypertension, unspecified type Take 1 tablet (20 mEq) by mouth Daily 90 tablet 3 11/17/19 25 026 Active furosemide (Lasix) 20 MG tabletIndications: Hypertension, unspecified type Take 1 tablet (20 mg) by mouth in the morning. 90 tablet 3 11/17/19 25 Active pantoprazole (ProtoNix) 40 MG EC tablet Take 40 mg by mouth Daily Do not crush, chew, or split. 11/13/19 25 Active omeprazole (PriLOSEC) [address] capsule Take 40 mg by mouth in the morning and 40 mg before bedtime. Do not crush or chew. 12/23/19 25 025 Active tetracycline 500 MG capsule Take 500 mg by mouth in the morning and 500 mg at noon and 500 mg in the evening and 500 mg before bedtime. 12/22/19 25 025 Active metroNIDAZOLE (Flagyl) 250 MG tablet Take 250 mg by mouth in the morning and 250 mg at noon and 250 mg in the evening and 250 mg before bedtime. 12/23/19 25 025 Active bismuth subsalicylate (Pepto Bismol) 262 MG chewable tablet Chew 2 tablets in the morning and 2 tablets at noon and 2 tablets in the evening and 2 tablets before bedtime. 12/23/19 25 025 Active ofloxacin (Floxin) 0.3 % otic solution Administer 4 drops into affected ear(s) in the morning and 4 drops before bedtime. 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 Bilateral primary osteoarthritis of knee 024 Assessment & Plan (11/03/2024 10:19 PM EDT): Orders: triamcinolone acetonide (Kenalog-40) injection 40 mg Tobacco user 04/04/2023 Abnormal liver ultrasound 03/07/2023 Acquired hypothyroidism 03/07/2023 Anxiety 03/07/2023 Arthritis 03/07/2023 Benign essential hypertension 03/07/2023 Bipolar I disorder 03/07/2023 Colon polyp 03/07/2023 Overview (03/07/2023): TUBULOVILLOUS ADENOMA Constipation 03/07/2023 Elevated liver enzymes 03/07/2023 SARAH (obstructive sleep apnea) 03/07/2023 Osteoarthritis of knee 03/07/2023 RBBB 03/07/2023 Stage 3 chronic kidney disease 03/07/2023 Type 2 diabetes mellitus wit h stage 3 chronic kidney disease, without long-term current use of insulin 03/07/2023 History of thyroidectomy, total 07/25/2017 Body mass index 50.0-59.9, adult 06/03/2017 Encounters Date Type Department Care Team Description 12/22/2024 Travel 12/11/2024 Patient Outreach [facility] [address] [address] Jenna Willson LSW 12/07/2024 2:40 PM EDT Office Visit [facility] [place] [address] Yvonne Frankel MD Benign essential hypertension (Primary Dx); Acquired hypothyroidism ; Chronic gastric ulcer without hemorrhage and without perforation 12/07/2024 Travel 12/07/2024 Patient Outreach [facility] [place] [address] [place] [place] [address] Jenna Willson, EXECUTIVE DIRECTOR [employer] 11/27/2024 Patient Outreach [facility] [place] [address] [place] [address] AnamikaJenna roblero, EXECUTIVE DIRECTOR [employer] 11/26/2024 Clinisync Result Encounter [facility] External Department Unsolicited Provider, Generic External Data 11/25/2024 Patient Outreach [facility] [place] [address] [place] [address] Oswaldo Marcelo, HEALTH MANAGEMENT CONSULTANT 11/25/2024 Telephone [facility] [address] [place] [address] Yvonne Frankel MD 11/25/2024 Patient Outreach [facility] [place] [address] [place] [address] Jenna Willson, [facility] 11/23/2024 Patient Outreach [facility] [address] [place] [address] Jenna Willson, [facility] 11/20/2024 Telephone [facility] [address] [place] [address] Yvonne Frankel MD 11/16/2024 Patient Outreach [facility] [place] [address] [place] [address] Maren Nickerson, HEALTH MANAGEMENT CONSULTANT 11/13/2024 Clinisync Result Encounter [facility] External Department Unsolicited Provider, Generic External Data 11/12/2024 Patient Outreach [facility] [place] [address] [address] AnamikaJenna, EXECUTIVE DIRECTOR [employer] 11/03/2024 2:00 PM EDT Office Visit [facility] [address] [facility] [place] [address] Yvonne Frankel MD Bilateral primary osteoarthritis of knee (Primary Dx); Vitamin D deficiency 11/03/2024 Travel 10/29/2024 Patient Outreach [facility] [address] [place] [address] Oswaldo Marcelo LPN 10/29/2024 Telephone [place] [address] [place] [address] Yvonne Frankel MD 10/28/2024 3:30 PM EDT Clinical Support [place] [id number] [facility] [place] [phone] 10/28/2024 Patient Outreach [facility] [address] [place] [address] Oswaldo Marcelo LPN 10/28/2024 Travel 10/28/2024 Patient Outreach [place] [address] [place] [address] Jenna Willson, [facility] 10/22/2024 Travel 10/22/2024 Patient Outreach [facility] [address] [place] [address] Jenna Willson, [facility] 10/20/2024 1:40 PM EDT Office Visit [place] [address] [facility] [place] [phone] Yvonne Frankel MD Vitamin D deficiency (Primary Dx); Dizziness; Benign essential hypertension 10/20/2024 Travel 10/20/2024 Patient Outreach [facility] [address] [address] Jenna Willson, [facility] 10/07/2024 Results Follow-Up [place] [address] [place] [address] Yvonne Frankel MD Vascular US lower extremity venous duplex bilateral 10/06/2024 3:15 PM EDT Ancillary Procedure [facility] [address] [facility] [place] [address] Leg pain, bilateral 10/06/2024 Travel 10/05/2024 3:40 PM EDT Office Visit [facility] [address] [place] [phone] Yvonne Frankel MD Leg pain, bilateral (Primary Dx); Type 2 diabetes mellitus with stage 3 chronic kidney disease, without long-term current use of insulin, unspecified whether stage 3a or 3b CKD (HCC); Benign essential hypertension 10/05/2024 Travel 10/05/2024 Patient Outreach [place] [address] [place] [address] Jenna Willson LSW 10/01/2024 Patient Outreach [place] [address] [place] [address] Stuart Lozada LSW 09/24/2024 Patient Outreach [place] [address] [place] [address] Jenna Willson LSW from Last 3 Months Immunizations Immunization Administration Dates Next Due Influenza, High Dose Seasonal, Preservative Free 12/30/2023 Influenza, High-dose Seasona l, Quadrivalent, Preservative Free 03/07/2023 Pneumococcal Conjugate PCV 13 08/26/2018 Pneumococcal Polysaccharide PPSV23 02/20/2013 Zoster, Recombinant 12/30/2023 Family History Medical History Relation Name Comments Alzheimer's disease Mother Dementia Mother Hypertension Mother Relation Name Status Comments Father Mother Social History Tobacco Use Types Packs/Day Years Used Date Smoking Tobacco: Every Day Cigarettes Smokeless Tobacco: Never Tobacco Cessation:Ready to Q uit: Not Asked; Counseling Given: Not Answered Alcohol Use Standard Drinks/Week Comments Never 0 [...] week 12/13/2023 How often do you attend [facility] or hol[facility] services? More than 4 times per year 12/13/2023 Do you belong to any clubs o r organizations such as caodaism groups, unions, fraternal or athletic groups, or [...] Recorded Patient Health Questionnaire-2 Score 0 12/26/2023 [facility] of Occupat ional Health - Occupational Stress [...] place to sleep or slept in a assisted (including now)? No 07/25/2023 Housing Stability Vital Sign Answer Star e Recorded In the last 12 months, was t here a time when you were not able to pay the mortgage or rent on time? No 12/13/2023 In the past 12 months, how m any times have you moved where you were living? 0 12/13/2023 At any time in the past 12 m [facility], were you homeless or living in a assisted (including now)? No 12/13/2023 Comments Unknown Sex and Gender Information Value Date Recorded Sex Assigned at Not on file Legal Sex Female 6:58 PM EDT Gender Identity Not on file Sexual Orientation Not on file Last Filed Vital Signs Vital Sign Reading Time Taken Comments Blood Pressure 146/80 12/07/2024 2:44 PM EDT Pulse 74 12/07/2024 2:44 PM EDT Temperature 37 C (98.6 F) 04/04/2023 2:10 PM EST Respiratory Rate 18 12/07/2024 2:44 PM EDT Oxygen Saturation 98% 12/07/2024 2:44 PM EDT Inhaled Oxygen Concentration - - Weight 148 kg (327 lb) 12/07/2024 2:44 PM EDT Height 167.6 cm (5' 6 ) 12/07/2024 2:44 PM EDT Body Mass Index 52.78 12/07/2024 2:44 PM EDT Plan of Treatment Upcoming Encounters Date Type Department Care Team (Late st Contact Info) Description 01/05/2025 11:20 AM EDT Office Visit [facility] [address] [place] [address] Yvonne Frankel MD [address] [place] [address] Health Maintenance Due Date Last Done Comments CT Colonography 1953 FIT-DNA 1955 FIT 1955 FOBT 1955 Sigmoidoscopy 1955 Pneumococcal Vaccine: 65+ Ye ars (3 of 3 - PCV20 or PCV21) 08/27/2023 08/26/2018, 02/20/2013 Diabetes: Urine Protein Screening 12/25/2024 12/26/2023, 09/03/2022, 03/27/2021, Additional history exists Medicare Annual Wellness (AWV) 12/25/2024 0 12/26/2023, 12/26/2023, 12/26/2023, Additional history exists Influenza Vaccine (#1) 2024 12/30/2023, 2022 Diabetes: Hemoglobin A1C 01/05/2025 025, 07/03/2024, 03/30/2024, Additional history exists Mammogram 02/24/2025 02/25/2024, 05/10/2022, 08/24/2021, Additional history exists Diabetes: Retinopathy Screening 04/17/2025 3 Colonoscopy 10/02/2034 10/02/2024, 06/0 09/2024, 10/02/2024, Additional history exists Colorectal Cancer Screening 10/02/2034 Procedures Procedure Name Priority Date/Time Associated Diagnosis Comments GLUCOSE-POCT Routine 11/26/2024 6:20 PM EDT SURGICAL PATHOLOGY EXAM Routine 11/26/2024 3:09 PM EDT GLUCOSE-POCT Routine 11/26/2024 2:56 PM EDT ABO/RH GROUP TEST Routine 11/26/2024 1:00 PM EDT GLUCOSE-POCT Routine 11/26/2024 12:53 PM EDT STAPH/MRSA SCREEN Routine 11/13/2024 1:38 PM EDT TYPE + SCREEN Routine 11/13/2024 1:38 PM EDT ALL BASIC METABOLIC PANEL Routine 11/13/2024 1:38 PM EDT ALL CBC WITH AUTO DIFF Routine 1:38 PM EDT CO ARTHROCENTESIS ASPIR&/INJ MAJOR JT/BURSA W/O US Routine 11/03/2024 10:18 PM EDT Bilateral primary osteoarthritis of knee POCT GLUCOSE Routine 10/20/2024 2:01 PM EDT Dizziness VASC US LOWER EXTREMITY VENOUS DUPLEX BILATERAL Routine 10/06/2024 3:54 PM EDT Leg pain, bilateral POCT GLYCOSYLATED HEMOGLOBIN (HGB A1C) Routine 10/05/2024 3:53 PM EDT Type 2 diabetes mellitus with stage 3 chronic kidney disease, without long-term current use of insulin, unspecified whether stage 3a or 3b CKD (HCC) BI MAMMOGRAM SCREENING TOMOSYNTHESIS BILATERAL Routine 02/25/2024 3:54 PM EDT Encounter for screening mammogram for malignant neoplasm of breast MICROALBUMIN / CREATININE URINE RATIO Routine 12/26/2023 1:18 PM EDT Type 2 diabetes mellitus with stage 3 chronic kidney disease, without long-term current use of insulin, unspecified whether stage 3a or 3b CKD (HCC) COLOR FUNDUS PHOTOGRAPHY - OU - BOTH EYES Routine 04/17/2023 11:43 AM EST Type 2 diabetes mellitus with stage 3 chronic kidney disease, without long-term current use of insulin, unspecified whether stage 3a or 3b CKD (HCC) COLONOSCOPY Routine 11/20/2018 12:00 PM EDT from Last 3 Months or Most Recently Relevant to Health Maintenance Results * (ABNORMAL) GLUCOSE-POCT (11/26/2024 6:20 PM EDT) Only the most recent of3 resultswithin the time period is included. GLUCOSE-POCT 100(H) 74 - 99 mg/dL Blood 11/26/2024 6:20 PM EDT 11/26/2024 6:22 PM EDT Narrative [facility] - 11/26/2024 6:22 PM EDT Original Ordering Provider: JURGEN SANTANA us Generic External Data Provider ZAHEER chairez Result [facility] [address] [place] [address] * SURGICAL PATHOLOGY EXAM (11/26/2024 3:09 PM EDT) Pathologist [facility] Pathology report.total SURG SEE COMMENT SURG Surgical Pathology Case: [id number] SURG Authorizing Provider: Jurgen Santana MD Collected: 11/26/2024 1509 SURG1 Ordering Location: [facility] Received: 11/26/2024 2207 [facility] [place] SURG Pathologist: Mariela Ford Asa, MD PhD SURG Specimen: EAR, MIDDLE EAR CONTENTS LEFT, Left middle ear contents SURG1 SURG1 Path report.final diagnosis SURG1 SEE COMMENT SURG1 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 SURG1 SURG RESIDENT REVIEW SURG SEE COMMENT SURG The findings were reviewed in conjunction with Endocrine Pathology Fellow, Mark Meyer M.D. SURG The gross and/or microscopic findings were reviewed in conjunction with pathology resident, Clair Monet M.D. [facility] SUR[facility] LAB AP SYNOPTIC COMMENTARY SURG SEE COMMENT SURG1 CLINICAL SURG1 +Clinical History: cannot be determined SURG1 Functional Status: Not known (no information provided) SURG1 +Tumor Scintigraphy or PET Avidity: cannot be determined SURG1 +Anatomic Location from Imaging: left middle ear SURG1 +Tumor Size from Imaging Studies: cannot be determined SURG1 SPECIMEN SURG1 Extra-adrenal excision,left middle ear SURG1 +Specimen Integrity : Fragmented SURG TUMOR SURG1 Tumor Number: Unifocal SURG Tumor Location: Extra-adrenal - left middle ear SURG1 +Tumor Size: 1.1 x 0.5 x 0.5 cm SURG1 Histologic Type(s) Paraganglioma SURG1 Tumor Necrosis: Not identified SURG1 Angioinvasion: Not identified SURG1 Lymphatic Invasion: Not identified SURG1 Tumor Extent: Cannot be determined: morcellated specimen\ SURG1 Tumor Proliferative Activity SURG1 Ki-67 Labeling Index 8.4% SURG1 Ki-67 Methodology :automated image analysis SURG1 MARGINS SURG1 Margin Status: Cannot be determined SURG1 REGIONAL LYMPH NODES SURG1 Regional Lymph Node Status: Not applicable (no regional lymph nodes submitted or found) SURG1 DISTANT METASTASIS Not applicable SURG1 ADDITIONAL FINDINGS SURG1 None identified SURG1 SPECIAL STUDIES SURG1 +Keratins (cam5.2): Negative [facility] SURG1 +Chromogranin-A: Positive [facility] SURG1 +Tyrosine Hydroxylase: Positive [facility] SURG1 +GATA3: Positive [facility] SURG1 +T489--[id number] [employer]: Present [facility] SURG1 +SDHB: Retained (normal staining) [facility] SURG1 +CAIX Negative [facility] SURG1 +FH Retained (normal staining) [facility] SURG1 Other Markers SURG1 Negative for glucagon, PP, SATB2 U[facility] SURG1 [facility]H SURG1 Path report.relevant Hx [facility] SURG1 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 The specimen is submitted in toto in one cassette. [facility] SURG1 DEREK U[facility] SURG1 UH SURG1 LAB AP ASR DISCLAIMER SURG One or more of the reagents used to perform assays on this specimen MAY have contained components considered to be analyte specific reagents (ASR's). ASR's have not been cleared or approved by the U.S. Food and Drug Administration. These assays were developed and their performance characteristics determined by the Department of Pathology at [facility]. The FDA does not require this test to go through premarket FDA review. This test is used for clinical purposes. It should not be regarded as investigational or for research. This laboratory is certified under the Clinical Laboratory Improvement Amendments (CLIA) as qualified to perform high complexity clinical laboratory testing. The assays were performed with appropriate positive and negative controls which stained appropriately. 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] Original Ordering Provider: JURGEN SANTANA us Generic External Data Provider ZAHEER Chu inal Result [facility] * ABO/RH GROUP TEST (11/26/2024 1:00 PM EDT) Pathologist [facility] ABO TYPE O [facility] UH RH TYPE POS [facility] Blood 11/26/2024 1:00 PM EDT 11/26/2024 1:08 PM EDT Narrative [facility] - 11/26/2024 1:49 PM EDT Original Ordering Provider: DELGADO BEATTY Generic External Data Provider [facility] F inal Result Performing Organization Address [facility] Co de Phone Number [facility] [address] [place] [phone] * TYPE + SCREEN (11/13/2024 1:38 PM EDT) ABO TYPE O [facility] UH RH TYPE POS [facility] ANTIBODY SCREEN NEG Blood 11/13/2024 1:38 PM EDT 11/13/2024 3:05 PM EDT Narrative [facility] - 11/13/2024 4:23 PM EDT Original Ordering Provider: ARVIN VENCES Generic External Data Provider [facility] F inal Result Performing Organization Address [facility] Co de Phone Number [facility] [address] [place] [phone] * STAPH/MRSA SCREEN (11/13/2024 1:38 PM EDT) STAPH/MRSA SCREEN Test: Staphylococcus aureus/MRSA colonization, Culture [facility] STAPH/MRSA SCREEN Specimen Source: Nares/Axilla/Groin [facility] STAPH/MRSA SCREEN Specimen Type: Swab [facility] STAPH/MRSA SCREEN Specimen Date: 11/13/2024 1338 [facility] STAPH/MRSA SCREEN Result Date: 11/15/2024 0629 [facility] STAPH/MRSA SCREEN Result Status: Final result [facility] STAPH/MRSA SCREEN Abnormal: No [facility] STAPH/MRSA SCREEN Resulting Lab: [facility] STAPH/MRSA SCREEN [address] [facility] STAPH/MRSA SCREEN [facility] [address] [facility] STAPH/MRSA SCREEN [facility] STAPH/MRSA SCREEN [facility] STAPH/MRSA SCREEN [facility] STAPH/MRSA SCREEN CULTURE [facility] STAPH/MRSA SCREEN [facility] STAPH/MRSA SCREEN [facility] STAPH/MRSA SCREEN No Staphylococcus aureus isolated [facility] STAPH/MRSA SCREEN [facility] STAPH/MRSA SCREEN [facility] STAPH/MRSA SCREEN [facility] STAPH/MRSA SCREEN Swab 11/13/2024 1:38 PM EDT 11/13/2024 3:19 PM EDT Narrative [facility] - 11/15/2024 6:29 AM EDT Original Ordering Provider: ARVIN VENCES Generic External Data Provider JABARIISYNC F inal Result Performing Organization Address [facility] de Phone Number ZAHEER [address] [place] [address] * (ABNORMAL) ALL CBC WITH AUTO DIFF (11/13/2024 1:38 PM EDT) WBC 6.8 4.4 - 11.3 x10*3/uL [facility] NUCLEATED RBC 0.0 0.0 - 0.0 /100 WBCs [facility] RBC 5.22(H) 4.00 - 5.20 x10*6/uL [facility] HGB 13.7 12.0 - 16.0 g/dL [facility] HCT 43.2 36.0 - 46.0 % [facility] MCV 83 80 - 100 fL MCH 26.2 26.0 - 34.0 pg [facility] MCHC 31.7(L) 32.0 - 36.0 g/dL [facility] RDW-CV 18.6(H) 11.5 - 14.5 % [facility] PLT 210 150 - 450 x10*3/uL Blood 11/13/2024 1:38 PM EDT 11/13/2024 3:22 PM EDT Narrative [facility] - 11/13/2024 3:39 PM EDT Original Ordering Provider: ARVIN VENCES Generic External Data Provider [facility] F inal Result Performing Organization Address [facility] de Phone Number [facility] [address] [place] [address] * (ABNORMAL) ALL BASIC METABOLIC PANEL (11/13/2024 1:38 PM EDT) GLUCOSE 94 74 - 99 mg/dL [facility] UH SODIUM 135(L) 136 - 145 mmol/L [facility]H POTASSIUM 4.5 3.5 - 5.3 mmol/L [facility] CHLORIDE 96(L) 98 - 107 mmol/L [facility] UH BICARBONATE 28 21 - 32 mmol/L [facility] ANION GAP 16 10 - 20 mmol/L [facility] UREA NITROGEN 13 6 - 23 mg/dL [facility] CREATININE 0.85 0.50 - 1.05 mg/dL [facility] GFRAT 73 >60 mL/min/1.7 3m*2 [facility] Comment: Calculations of estimated GFR are performed using the 2020 CKD-EPI Study Refit equation without the race variable for the IDMS-Traceable creatinine methods. https://jasn.asnjournals.org/content/early/ASN.0065960635 [facility] CALCIUM 9.7 8.6 - 10.6 mg/dL [facility] Blood 11/13/2024 1:38 PM EDT 11/13/2024 3:33 PM EDT Brennan SCHWAB - 11/13/2024 4:05 PM EDT Original Ordering Provider: ARVIN VENCES us Generic External Data Provider ZAHEER chairez Result [facility] [address] [place] [address] * CO ARTHROCENTESIS ASPIR&/INJ MAJOR JT/BURSA W/O US (11/03/2024 10:18 PM EDT) Narrative Yvonne Frankel MD - 11/03/2024 10:18 PM EDT Yvonne Frankel MD 11/03/2024 10:19 PM Arthrocentesis Date/Time: 11/03/2024 10:18 PM Performed by: Yvonne Frankel MD Authorized by: Yvonne Frankel MD Consent: Consent obtained: Verbal Risks discussed: Pain Alternatives discussed: Referral [facility] protocol: Patient identity confirmed: Verbally with patient Location: Location: Knee Anesthesia: Anesthesia method: Local infiltration Local anesthetic: Lidocaine 1% w/o epi Procedure details: Preparation: Patient was prepped and draped in usual sterile fashion Needle gauge: 22 G Steroid injected: yes Post-procedure details: Dressing: Adhesive bandage Procedure completion: Tolerated us Yvonne Frankel MD IN CLINIC/BEDSIDE ORDERABLES Fin al Result * POCT glucose (10/20/2024 2:01 PM EDT) Glucose Blood, POC 98 mg/dL Blood Capillary blood specimen / Unknown 10/20/2024 2:01 PM EDT us Yvonne Frankel MD POINT OF CARE TEST ENTER/EDIT OR DERABLES Final Result * Vascular US lower extremity venous duplex bilateral (10/06/2024 3:54 PM EDT) Anatomical Region Laterality Modality Lower Extremities Ultrasound 10/07/2024 8:28 AM EDT Narrative 10/07/2024 8:28 AM EDT EXAM: VASC US LOWER EXTREMITY VENOUS DUPLEX BILATERAL HISTORY: Leg pain and swelling x 1 year. COMPARISON: None available. TECHNIQUE: Two-dimensional grayscale, color and spectral Doppler ultrasound imaging of the bilateral lower extremities was performed. FINDINGS: The bilateral lower extremity deep venous system was interrogated from the common femoral vein through the posterior tibial veins. The visualized deep calf veins are unremarkable. There is no evidence of an intraluminal filling defect. Normal compression and augmentation are noted throughout. Soft tissues are unremarkable. IMPRESSION: 1. Negative for bilateral lower extremity DVT. Interpreted by: Electronically signed by JUSTICE JOAQUIN II, MD, PHD at 07-Oct-2024 08:26:38 AM [facility] Procedure Note Justice Joaquin MD - 10/07/2024 EXAM: VAS US LOWER EXTREMITY VENOUS DUPLEX BILATERAL HISTORY: Leg pain and swelling x 1 year. COMPARISON: None available. TECHNIQUE: Two-dimensional grayscale, color and spectral Dopplerultrasound imaging of the bilateral lower extremities was performed. FINDINGS: The bilateral lower extremity deep venous system was interrogated from thecommon femoral vein through the posterior tibial veins. The visualizeddeep calf veins are unremarkable. There is no evidence of an intraluminalfilling defect. Normal compression and augmentation are noted throughout. Soft tissues are unremarkable. IMPRESSION: 1. Negative for bilateral lower extremity DVT. Interpreted by: Electronically signed by JUSTICE JOAQUIN II, MD, PHD [id number] 08:26:38 AM [facility] us Yvonne Frankel MD IMG US PROCEDURES Final Result * POCT glycosylated hemoglobin (Hb A1C) docked device (10/05/2024 3:53 PM EDT) Hemoglobin A1C 5.6 Blood Venous blood specimen / Unknown 10/05/2024 3:53 PM EDT us Yvonne Frankel MD POINT OF CARE TEST ENTER/EDIT OR DERABLES Final Result * Bilateral screening mammogram with tomosynthesis (02/25/2024 3:54 PM EDT) Anatomical Region Laterality Modality Breast Bilateral Mammography 02/26/2024 12:3 2 PM EDT Impressions 02/26/2024 12:38 PM EDT Impression: No specific evidence of malignancy seen in either breast. Breast Density: The breasts are heterogeneously dense, which may obscure small masses BiRads: BIRADS 2 - Benign Recommended follow-up: Routine Screening Mamm ELECTRONICALLY SIGNED BY: Brian Soliz M.D. Narrative 02/26/2024 12:38 PM EDT Examination: BI MAMMOGRAM SCREENING TOMOSYNTHESIS BILATERAL Clinical History: screen Technique: Screening digital mammography study of both breasts was performed with 2-D and 3-D tomosynthesis imaging. Study was compared to the prior exam dated 09/12/2022. Findings: There is no evidence of interval dominant spiculated mass, grouped microcalcifications, or skin thickening which would be suggestive of malignancy. Scattered benign-appearing calcifications are noted bilaterally. Axillary lymph nodes are noted bilaterally. Procedure Note Brian Soliz MD - 02/26/2024 Examination: BI MAMMOGRAM SCREENING TOMOSYNTHESIS BILATERAL Clinical History: screen Technique: Screening digital mammography study of both breasts wasperformed with 2-D and 3-D tomosynthesis imaging. Study was compared tothe prior exam dated 09/12/2022. Findings: There is no evidence of interval dominant spiculated mass,grouped microcalcifications, or skin thickening which would be suggestiveof malignancy. Scattered benign-appearing calcifications are noted bilaterally. Axillarylymph nodes are noted bilaterally. IMPRESSION: Impression: No specific evidence of malignancy seen in either breast. Breast Density: The breasts are heterogeneously dense, which may obscuresmall masses BiRads: BIRADS 2 - Benign Recommended follow-up: Routine Screening Mamm ELECTRONICALLY SIGNED BY: Brian Soliz M.D. Beth Lynch NP IMG BI PROCEDURES Final Result * (ABNORMAL) Microalbumin / creatinine urine ratio (12/26/2023 1:18 PM EDT) CREATININE, RANDOM URINE 187 20 - 275 mg/dL [facility] ALBUMIN, URINE 171.8 See Note: mg/dL [facility] Comment: Reference Range: Reference Range Not established Verified by repeat analysis. ALBUMIN/CREATININE RATIO, RANDOM URINE 919(H) <30 mg/g creat [facility] Comment: The ADA defines abnormalities in albumin excretion as follows: Albuminuria Category Result (mg/g creatinine) Normal to Mildly increased <30 Moderately increased 30-299 Severely increased > OR = 300 The ADA recommends that at least two of three specimens collected within a 3-6 month period be abnormal before considering a patient to be within a diagnostic category. Urine Urine specimen obtained by clean catch procedure / Unknown 12/26/2023 1:18 PM EDT 12/26/2023 1:18 PM EDT Narrative [facility] - 12/27/2023 1:55 PM EDT SPLIT 12/26/2023 FROM [id number] Resulting Agency Comment Performing Organization Information Site ID: [id number] Name: [facility] Address: [address] [place] [address], [address] [place] [id number] Director: Roosevelt Davila MD Beth Lynch NP LAB URINE ORDERABLES Final Resul t [facility] * Color Fundus Photography - OU - Both Eyes (04/17/2023 11:43 AM EST) Anatomical Region Laterality Modality Head Fundus Photograp hy us Shakira Aguilera MD OPHTH PHOTOGRAPHY Final Resul t * Colonoscopy (11/20/2018 12:00 PM EDT) Anatomical Region Laterality Modality Endoscopy 11/20/2018 12:0 0 PM EDT Narrative 11/20/2018 12:00 PM EDT PERFORMED AT [facility] LOCATION:[id number] Procedure Note CONVERSION, GENERIC - 09/12/2022 PERFORMED AT [facility] LOCATION:[id number] us Maxwell Freedman MD ENDOSCOPY PROCEDURE ORDERABL ES Final Result from Last 3 Months or Most Recently Relevant to Health Maintenance Insurance MEDICAID [place] [employer] MEDICARE Care Teams Workday Manager Relationship Specialty Start Date End Date Yvonne Frankel MD [address] [place] [address] PCP - General Family Medicine 09/17/22
--- OUTSIDE RECORDS SUMMARY | 2024-12-25 07:59 | XMS_ITS | Encounter Summary ---
Author Organization [facility] Address [id number] [address] [place] [address] Care Team Providers Care Car Seat Upholsterer Name Role Phone Yvonne Frankel MD Primary Care Provider [phone] Encounter Details Date Type Department Care Team (Late st Contact Info) Description 12/24/2024 Telephone [facility] Pul[facility] [address] [facility] [place] [id number] Reena Mandel Social History Tobacco Use Types Packs/Day Years [...] encounter Miscellaneous Notes * Telephone Encounter - Reena Lobato Ministerio - 12/24/2024 2:19 PM EDT Received sleep medicine referral / scanned into MM and transcribed order. Called number listed for pt on referral and her daughter, Adelina (PHI) answered, says her number listed as pt never answers phone. Daughter was at work and says will call back later to schedule. Will verify best number to list for pt when she c/b * Telephone Encounter - Reena Duarterafal - 12/24/2024 2:19 PM EDT Daughter c/b and scheduled sleep appt, but we are OON for pt's insurance. Daughter informed [facility] arin says pt will go elsewhere. Advised pt follow up with referring provider for referral to anothersleep specialist. Spoke to Evelin at Dr Darden's office to inform our office is OON for pt documented in this encounter Plan of Treatment Not on file documented as of this encounter Visit Diagnoses Not on filedocumented in this encounter Additional Health Concerns Assessment Noted Time PHQ-9 Depression Total Score: 0 01/30/20 19 3:19 PM EDT documented as of this encounter Care Teams Car Seat Upholsterer Relationship Specialty Start Date End Date Yvonne Frankel MD [address] [place] [address] PCP - General Family Medicine 10/17/24 documented as of this encounter
--- OUTSIDE RECORDS SUMMARY | 2024-12-25 07:59 | XMS_ITS | Encounter Summary ---
Author Organization [facility] Address [address] [place] [address] Care Team Providers Care Slate Handler Name Role Phone Yvonne Frankel MD Primary Care Provider [phone] Yvonne Frankel MD Unavailable Encounter Details Date Type Department Care Team (Late st Contact Info) Description 10/30/2023 Abstract [facility] Family Medicine [address] [place] [address] Yvonne Frankel MD [address] [place], [place] [id number] Social History Tobacco Use Types Packs/Day Years Used Date Smoking Tobacco: Every Day Cigarettes Smokeless Tobacco: Never Alcohol Use Standard Drinks/Week Comments Never 0 (1 standard drink = 0.6 oz pur e alcohol) caffeine 1-2 cups/day; coffee AUDIT-C Answer Date Recorded Q1: How often do you have a drink containing alcohol? Never 03/07/2023 Q2: How many drinks containi ng alcohol do you have on a typical day when you are drinking? Patient does not drink Q3: How often do you have si x or more drinks on one occasion? Never 03/07/2023 Overall Financial Resource Strain (CARDIA) Answe r Date Recorded How hard is it for you to pa y for the very basics like food, housing, medical care, and heating? Somewhat hard 07/25/2023 PHQ-2 Answer Date Recorded Patient Health Questionnaire-2 Score 0 03/07/2023 Hunger Vital Sign Answer Date Recorded Within the past 12 months, y ou worried that your food would run out before you got the money to buy more. Sometimes true Ran Out of Food in the Last Year Not on file 07/25/2023 Housing Stability Vital Sign Answer Star e Recorded Unable to Pay for Housing in the Last Year Not o n file 07/25/2023 In the last 12 months, how many places have you lived? 1 07/25/2023 In the last 12 months, was t here a time when you did not have a steady place to sleep or slept in a mcfp (including now)? No 07/25/2023 Comments Unknown Sex and Gender Information Value Date Recorded Sex Assigned at Not on file Legal Sex Female 6:58 PM EDT Gender Identity Not on file Sexual Orientation Not on file documented as of this encounter Plan of Treatment Upcoming Encounters Date Type Department Care Team (Late st Contact Info) Description 01/05/2025 11:20 AM EDT Office Visit [facility] [address] [facility] [place] [address] Yvonne Frankel MD [address] [place] [address] documented as of this encounter Visit Diagnoses Not on filedocumented in this encounter Care Teams Slate Handler Relationship Specialty Start Date End Date Yvonne Frankel MD [address] [facility] [place] [address] PCP - General Family Medicine 09/17/22 Yvonne Frankel MD [address] [facility] [place] [address] PCP - [employer] 10/28/23 09/26/24 documented as of this encounter
--- OUTSIDE RECORDS SUMMARY | 2024-12-25 07:59 | XMS_ITS | Encounter Summary ---
Author [facility] [id number] [address] [place] [address] Care Team Providers Care Cashier Host/Hostess Name Role Phone Yvonne Frankel MD Primary Care Provider [phone] Reason for Visit * Reason Comments Med Refill Encounter Details Date Type Department Care Team (Late st Contact Info) Description 06/05/2022 Refill [facility] [address] [address] Marisabel Sierra, PA-C [address] [facility] [address] [place] [address] Postsurgical hypothyroidism Social History Tobacco Use Types [...] documented as of this encounter Care Teams Cashier Host/Hostess Relationship Specialty Start Date End Date Yvonne Frankel MD [address] [place] [address] PCP - General Family Medicine 10/17/24 documented as of this encounter
--- OUTSIDE RECORDS SUMMARY | 2024-12-25 07:59 | XMS_ITS | Encounter Summary ---
Author Organization [facility] Address [address] [facility] [place] [address] Care Team Providers Care Programmer Developer Name Role Phone Yvonne Frankel MD Primary Care Provider [phone] Yvonne Frankel MD Unavailable Encounter Details Date Type Department Care Team (Late st Contact Info) Description 11/12/2022 Abstract [facility] Family Medicine [address] [place] [address] Yvonne Frankel MD [address] [place], [place] [phone] Social History Tobacco Use Types Packs/Day Years [...] Description 01/05/2025 11:20 AM EDT Office Visit [facility] Family Medicine [address] [place] [phone] Yvonne Frankel MD [address] [place], [place] [phone] documented as of this encounter Visit Diagnoses Not on filedocumented in this encounter Care Teams Programmer Developer Relationship Specialty Start Date End Date Yvonne Frankel MD [address] [place], [place] [phone] PCP - General Family Medicine 09/17/22 Yvonne Frankel MD [address] [place] [address] PCP - [employer] 10/28/23 09/26/24 documented as of this encounter
--- OUTSIDE RECORDS SUMMARY | 2024-12-25 07:59 | XMS_ITS ---
Author Organization [facility] Address [address] [place] [address] Care Team Providers Care Manager Food Beverage Name Role Phone Yvonne Frankel MD Primary Care Provider [phone] Chronic Care Management (CCM) Status:Enrolled (Active) Start date:01/21/2019 Enrollment date:01/21/2019 Overview 06/24/23, 11:04 AM - MICHELLE Lee- Patient gives verbal consent to be enrolled in CCM Program and understands there could be a bill for this service. Case Team Name Relationship Phone Oswaldo Marcelo LPN(Responsible Staff) Clinical Ad vocate [phone] Jenna MARTINEZ Dust Mill Operator [phone] Continued Care and Services Coordination
--- OUTSIDE RECORDS SUMMARY | 2024-12-25 07:59 | XMS_ITS | Encounter Summary ---
Author Organization [facility] Address [id number] [address] [place] [address] Care Team Providers Care Supervisor Polishing Name Role Phone Yvonne Frankel MD Primary Care Provider [phone] Reason for Visit * Reason Comments Med Refill Encounter Details Date Type Department Care Team (Late st Contact Info) Description 10/25/2017 Refill [facility] [address] [place] [address] [address] [place] [phone] Chris Buckner MD PhD [address] [place] [place] [address] RETIRED 11/27/2023 [place] [address] S/P thyroidectomy Social History Tobacco Use Types [...] status documented in this encounter Care Teams Supervisor Polishing Relationship Specialty Start Date End Date Yvonne Frankel MD [address] [place], [place] [phone] PCP - General Family Medicine 10/17/24 documented as of this encounter
--- OUTSIDE RECORDS SUMMARY | 2024-12-25 07:59 | XMS_ITS | Encounter Summary ---
Author Organization [facility] Address [address] [facility] [place] [address] Care Team Providers Care Biophysics Teacher Name Role Phone Yvonne Frankel MD Primary Care Provider [phone] Yvonne Frankel MD Unavailable Encounter Details Date Type Department Care Team (Late st Contact Info) Description 07/14/2024 Orders Only [facility] Family Medicine [address] [place] [address] Beth Cisse NP Proteinuria, unspecified type Social History Tobacco Use Types [...] week 12/13/2023 How often do you attend [facility] or voodoo services? More than 4 times per year 12/13/2023 Do you belong to any clubs o r organizations such as temple groups, unions, fraternal or athletic groups, or [...] Recorded Patient Health Questionnaire-2 Score 0 12/26/2023 [facility] - Occupational Stress [...] any time in the past 12 m [facility], were you homeless or living in [...] EDT Office Visit [facility] [address] [facility] [place] [phone] Yvonne Frankel MD [address] [facility] [place] [address] documented as of this encounter Procedures Procedure Name Priority Date/Time Associated Diagnosis Comments AMB REFERRAL TO NEPHROLOGY Routine 07/14/2024 12:53 PM EDT Proteinuria, unspecified type documented in this encounter Results * Ambulatory referral to Nephrology (07/14/2024 12:53 PM EDT) us Beth Cisse ASSOCIATE SCIENTIST OUTPATIENT REFERRAL ORDERABLES F inal Result documented in this encounter Visit Diagnoses Diagnosis Proteinuria, unspecified type documented in this encounter Additional Health Concerns Assessment Noted Time PHQ-9 Depression Total Score: 0 12/26/19 24 11:00 AM EDT documented as of this encounter Care Teams Biophysics Teacher Relationship Specialty Start Date End Date Yvonne Frankel MD [address] [place] [address] PCP - General Family Medicine 09/17/22 Yvonne Frankel MD [address] [place] [address] PCP - [employer] 10/28/23 09/26/24 documented as of this encounter
--- OUTSIDE RECORDS SUMMARY | 2024-12-25 08:00 | XMS_ITS | Encounter Summary ---
Author Organization [facility] Address [address] [facility] [place] [address] Care Team Providers Care Locomotive Engineer Diesel Name Role Phone Yvonne Frankel MD Primary Care Provider [phone] Encounter Details Date Type Department Care Team (Late st Contact Info) Description 10/07/2024 Results Follow-Up [facility] Family Medicine [address] [place] [address] Yvonne Frankel MD [address] [place], [place] [phone] Vascular US lower extremity venous duplex bilateral Social History Tobacco Use Types Packs/Day Years [...] week 12/13/2023 How often do you attend [facility] or catholic services? More than 4 times per year 12/13/2023 Do you belong to any clubs o r organizations such as latter day groups, unions, frae(ye)BRAIN or athletic groups, or school groups? No [...] Recorded Patient Health Questionnaire-2 Score 0 12/26/2023 [facility] - Occupational [...] place to sleep or slept in a senior care (including now)? No 07/25/2023 Housing Stability Vital [...] time in the past 12 m [facility], were you homeless or living in a senior care (including now)? No 12/13/2023 Comments Unknown Sex and Gender Information Value Date Recorded Sex Assigned at Not on file Legal Sex Female 6:58 PM EDT Gender Identity Not on file Sexual Orientation Not on file documented as of this encounter Plan of Treatment Upcoming Encounters Date Type Department Care Team (Late st Contact Info) Description 01/05/2025 11:20 AM EDT Office Visit [facility] [address] [place] [address] Yvonne Frankel MD [address] [place], [place] [phone] documented as of this encounter Visit Diagnoses Not on filedocumented in this encounter Additional Health Concerns Assessment Noted Time PHQ-9 Depression Total Score: 0 12/26/19 24 11:00 AM EDT documented as of this encounter Care Teams Locomotive Engineer Diesel Relationship Specialty Start Date End Date Yvonne Frankel MD [address] [place] [address] PCP - General Family Medicine 09/17/22 documented as of this encounter
--- OUTSIDE RECORDS SUMMARY | 2024-12-25 08:00 | XMS_ITS | Clinical Summary ---
Author Organization [employer] tem Address [id number] [address] [place] [address] Care Team Providers Care Distribution Supervisor Name Role Phone Yvonne Frankel MD Primary Care Provider [phone] Allergies Active Allergy Reactions Criticality Noted Date Comments Duloxetine Hcl Diarrhea 09/18/2023 Medications eszopiclone (LUNESTA) tablet Take 1 tablet (3 mg total) by mouth in the morning. Take immediately before bedtime . Active hydroCHLOROthiazid e (HYDRODIURIL) 25 mg tablet Take 1 tablet (25 mg total) by mouth daily. Active metoprolol tartrate (LOPRESSOR) 25 mg tablet Take 1 tablet (25 mg total) by mouth in the morning and 1 tablet (25 mg total) before bedtime. Active potassium chloride (KLOR-CON) 20 mEq packet Take 1 packet (20 mEq total) by mouth in the morning. Active levothyroxine (SYNTHROID, LEVOTHROID) 125 MCG tabletIndications: Postsurgical hypothyroidism TAKE 1 TABLET BY MOUTH EVERY DAY IN THE MORNING 90 tablet 1 12/26/19 Active OYSTER SHELL CALCIUM-VIT D3 500 mg-5 mcg (200 unit) per tablet TAKE 2 TABLETS BY MOUTH 3 TIMES A DAY WITH MEALS. 540 tablet 2 08/29/19 Active Additional Information Patient not taking.Reported on 09/07/2024 aspirin 81 mg 07/23/19 24 Active atorvastatin (LIPITOR) 40 mg tablet Take 1 tablet (40 mg total) by mouth. 10/15/19 24 Active furosemide (LASIX) 20 mg tablet Take 1 tablet (20 mg total) by mouth. 10/15/19 24 Active metFORMIN (GLUCOPHAGE) 500 mg tablet 01/22/20 23 Active sertraline (ZOLOFT) 50 mg tablet Take 1 tablet (50 mg total) by mouth. 06/25/19 24 Active traZODone (DESYREL) 50 mg tablet 06/25/19 24 Active fluticasone propionate (FLONASE) 50 mcg/actuation nasal spray Administer 2 sprays into each nostril in the morning. 01/20/20 24 Active mometasone (ELOCON) 0.1 % ointment Apply 1 Application topically in the morning. 04/30/19 24 Active polyethylene glycol (GLYCOLAX) 17 gram packetIndications: Constipation, unspecified constipation type Take 17 g by mouth in the morning. 7 packet 09/08/19 25 Active lisinopriL (PRINIVIL,ZESTRIL) 10 mg tablet Take 1 tablet (10 mg total) by mouth in the morning. 07/04/19 25 Active Active Problems Problem Noted Date Diagnosed Date Hearing loss 04/11/2020 Tinnitus of left ear 04/11/2020 Chest pain 08/22/2018 Abnormal stress test 08/22/2018 Abnormal cardiovascular stress test 08/22/2018 Overview (08/22/2018): Added automatically from request for surgery [id number] Status post thyroidectomy 07/25/2017 Thyroid nodule 07/22/2017 Body mass index 50.0-59.9, adult 06/03/2017 Constipation Essential hypertension Arthritis Anxiety Colon polyp Overview (08/21/2018): TUBULOVILLOUS ADENOMA Obesity Resolved Problems Problem Noted Date Diagnosed Date Resolved Date Bradycardia 08/22/2018 Encounters Date Type Department Care Team Description 12/24/2024 Telephone [facility] [address] [place] [address] Reena Mandel 12/23/2024 Telephone [facility] [address] [place] [phone] Transcribe, Orders Support User Sleep Lab (PT Inquiry) 10/19/2024 Telephone [facility] General Surgery [address] [place] [address] Nathalia Kohler CMA 10/17/2024 2:45 PM EDT - 10/17/2024 8:00 PM EDT Emergency [facility] - Emergency [address] [place] [address] Leia Michele, DO Diarrhea, unspecified type (Primary Dx); Lightheaded; Urinary tract infection with hematuria, site unspecified Discharge Disposition: Home 10/17/2024 Travel 10/02/2024 8:30 AM EDT - 10/02/2024 9:00 AM EDT Surgery [facility] [address] [place] [address] Rosalina Duran MD COLONOSCOPY DIAGNOSTIC / SCREENING [G0105 +1 more] 10/02/2024 8:22 AM EDT Anesthesia Event [facility] [address] [place] [address] Augie Bellamy MD Reynolds, Vern D, DO 10/02/2024 6:27 AM EDT - 10/02/2024 9:17 AM EDT Hospital Encounter [facility] [address] [place] [address] Rosalina Duran MD History of colon polyps Discharge Disposition: Home 10/02/2024 Travel from Last 3 Months Immunizations Immunization Administration Dates Next Due Pneumococcal Polysaccharide 02/20/2013 Family History Medical History Relation Name Comments No Known Problems Father Colon cancer Maternal Grandmother Alzheimer's disease Mother Hypertension Mother Relation Name Status Comments Father Maternal Grandmother Mother Alive Social History Tobacco Use Types Packs/Day Years Used Date Smoking Tobacco: Every Day Cigarettes 1.5 55.7 Started: 1970 Smokeless Tobacco: Never Tobacco Cessation:Ready to Q uit: Not Asked; Counseling Given: Not Answered Alcohol Use Standard Drinks/Week Comments Yes 0 [...] Sign Reading Time Taken Comments Blood Pressure 134/76 10/17/2024 6:55 PM EDT Pulse 50 10/17/2024 6:55 PM EDT Temperature 36.8 C (98.2 F) 10/17/2024 2:56 PM EDT Respiratory Rate 20 10/17/2024 6:55 PM EDT Oxygen Saturation 96% 10/17/2024 6:55 PM EDT Inhaled Oxygen Concentration - - Weight 143.8 kg (317 lb) 10/17/2024 2:56 PM EDT Height 167.6 cm (5' 6 ) 10/17/2024 2:56 PM EDT Body Mass Index 51.17 10/17/2024 2:56 PM EDT Plan of Treatment Health Maintenance Due Date Last Done Comments Tobacco Counseling 1955 Depression Screening 1965 Adult BMI Follow Up Plan 1971 DTaP,Tdap and Td Vaccines (1 - Tdap) 1972 Fall Risk Screening 2018 COVID-19 Vaccine (3 - 2023-2 5 season) 2023 10/12/2020, 09/07/2020 Zoster (Shingles) Vaccine (2 of 2) 02/24/2024 12/30/2023 Influenza Vaccine 12/28/2024 12/30/2023, , 04/16/2022, Additional history exists Adult BMI Screening 10/17/2025 10/17/2024 Tobacco Screening 10/17/2025 10/17/2024 Colonoscopy 10/02/2029 10/02/2024, 06/0 09/2024, 03/06/2024, Additional history exists Medical Devices Not on file Procedures Procedure Name Priority Date/Time Associated Diagnosis Comments POCT NURSING URINE MACROSCOPIC UA Routine 10/17/2024 7:26 PM EDT ER EXTRA URINE MARBLE STAT 10/17/2024 7:19 PM EDT ER EXTRA URINE CULTURE STAT 7:19 PM EDT ER EXTRA URINE STAT 10/17/2024 7:19 PM EDT BASIC METABOLIC PANEL STAT 10/17/2024 7:01 PM EDT BLUE TOP STAT 10/17/2024 4:18 PM EDT RAINBOW DRAW STAT 10/17/2024 4:18 PM EDT COMPREHENSIVE METABOLIC PANEL STAT 10/17/2024 4:17 PM EDT CBC WITH AUTO DIFFERENTIAL STAT 10/17/2024 4:17 PM EDT ECG 12-LEAD STAT 10/17/2024 3:41 PM EDT SURGICAL PATHOLOGY Routine 10/02/2024 8: 38 AM EDT History of colon polyps COLONOSCOPY 10/02/2024 8:23 AM EDT OR COLONOSCOPY FLX DX W/COLLJ SPEC WHEN PFRMD 10/02/2024 8:21 AM EDT History of colon polyps OR COLORECTAL SCRN; HI RISK IND 10/02/2024 8:21 AM EDT History of colon polyps PROVATION COLONOSCOPY Routine 10/02/2024 8:04 AM EDT from Last 3 Months Results * (ABNORMAL) POCT Nursing Urine Macroscopic UA (10/17/2024 7:26 PM EDT) POC Urine Specific [place] 1.025 1.010, 1.015, 1.020, 1.025 10/17/2024 7:19 PM EDT [facility] POC Urine Leukocyte Esterase Small(A) Negative 10/17/2024 7:19 PM EDT [facility] POC Urine Nitrite Negative Negative 10/17/2024 7:19 PM EDT [facility] POC Urine pH 6.0 5.0, 6.0, 6.5, 7.0, 7.5, 8.0, 8.5, 5.5 10/17/2024 7:19 PM EDT [facility] POC Urine Protein 100 mg/dL(A) Negative 10/17/2024 7:19 PM EDT [facility] POC Urine Glucose Negative Negative 10/17/2024 7:19 PM EDT [facility] POC Urine Ketones Negative Negative 10/17/2024 7:19 PM EDT [facility] POC Urine Urobilinogen 0.2 E.U./dL 10/17/2024 7:19 PM EDT [facility] POC Urine Bilirubin Negative Negative 10/17/2024 7:19 PM EDT [facility] POC Urine Blood/HGB Trace(A) Negative 10/17/2024 7:19 PM EDT [facility] Urine 10/17/2024 7:26 PM EDT 10/17/2024 7:19 PM EDT us Leia Michele DO POINT OF CARE TEST ORDERABLE S Final Result [facility] [address] [place] [address], [place] * Extra Urine [place] (10/17/2024 7:19 PM EDT) Extra Tube Auto Resulted 10/18/2024 7:01 PM EDT [facility] Urine Urine specimen collection, clean catch / Unknown 10/17/2024 7:19 PM EDT 10/18/2024 6:18 PM EDT us Leia Michele DO URINE ORDERABLES Final Resul t Performing Organization Address City/[facility]/ZIP Co de Phone Number [address] [place] [address], [place] * Extra Urine Culture (10/17/2024 7:19 PM EDT) Extra Tube Auto Resulted 10/17/2024 9:01 PM EDT [facility] Urine Urine specimen collection, clean catch / Unknown Collection / Unknown 10/17/2024 7:19 PM EDT 10/17/2024 7:29 PM EDT us Leia Michele DO URINE ORDERABLES Final Resul t Performing Organization Address [facility] Co de Phone Number [address] [place] [address], [place] * Extra Urine (10/17/2024 7:19 PM EDT) Extra Tube Auto Resulted 10/17/2024 9:01 PM EDT [facility] Urine Urine specimen collection, clean catch / Unknown Collection / Unknown 10/17/2024 7:19 PM EDT 10/17/2024 7:29 PM EDT us Liea Michele DO URINE ORDERABLES Final Resul t Performing Organization Address City/[facility] Co de Phone Number [address] [place] [address], [place] * (ABNORMAL) Basic Metabolic Panel (10/17/2024 7:01 PM EDT) SODIUM 136 134 - 146 mmol/L 10/17/2024 7:26 PM EDT [facility] POTASSIUM 3.2(L) 3.5 - 5.0 mmol/L 10/17/2024 7:26 PM EDT [facility] CHLORIDE 102 98 - 109 mmol/L 10/17/2024 7:26 PM EDT [facility] CARBON DIOXIDE 25 22 - 32 mmol/L 10/17/2024 7:26 PM EDT [facility] ANION GAP 9 5 - 15 mmol/L 10/17/2024 7:26 PM EDT [facility] BLOOD UREA NITROGEN 14 5 - 27 mg/dL 10/17/2024 7:26 PM EDT [facility] CREATININE 1.29(H) 0.40 - 1.00 mg/dL 10/17/2024 7:26 PM EDT [facility] Comment:METHOD TRACEABLE TO IDMS STANDARD GLUCOSE 89 65 - 99 mg/dL 10/17/2024 7:26 PM EDT [facility] CALCIUM 8.8 8.5 - 10.5 mg/dL 10/17/2024 7:26 PM EDT [facility] EGFR Non-Race Dependent 44(L) >=60 ml/min/1.7 3sq.m 10/17/2024 7:26 PM EDT [facility] Comment: eGFR not reported due to non-numeric value for Creatinine. Reported eGFR is based on the CKD-EPI 2020 equation that does not use a race coefficient. Blood Venous blood / Unknown Venipuncture / Unknown 10/17/2024 7:01 PM EDT 10/17/2024 7:08 PM EDT us Lyle Martin MD LAB BLOOD ORDERABLES Final R esult [facility] [address] [place] [address], [place] * Light Blue Top (10/17/2024 4:18 PM EDT) Extra Tube Auto Resulted 10/17/2024 6:02 PM EDT [facility] Blood Venous blood / Unknown Venipuncture / Unknown 10/17/2024 4:18 PM EDT 10/17/2024 4:20 PM EDT us Leia Michele DO LAB BLOOD ORDERABLES Final R esult [facility] [address] [place] [address], [place] * (ABNORMAL) CBC auto differential (10/17/2024 4:17 PM EDT) WBC 4.3 4 - 11 x10E9/L 10/17/2024 4:24 PM EDT [facility] RBC Count 4.85 3.8 - 5.2 X10E12/L 10/17/2024 4:24 PM EDT [facility] Hemoglobin 13.2 11.7 - 15.5 g/dL 10/17/2024 4:24 PM EDT [facility] Hematocrit 40.0 35 - 47 % 10/17/2024 4:24 PM EDT [facility] MCV 83 80 - 100 fL 10/17/2024 4:24 PM EDT [facility] MCH 27.2 27 - 34 pg 10/17/2024 4:24 PM EDT [facility] MCHC 32.9 32 - 36 g/dL 10/17/2024 4:24 PM EDT [facility] RDW 20.8(H) 11.5 - 15 % 10/17/2024 4:24 PM EDT [facility] Platelet Count 198 150 - 450 X10E9/L 10/17/2024 4:24 PM EDT [facility] MPV 8.8 7 - 12 fL 10/17/2024 4:24 PM EDT [facility] Neutrophils % 61.5 % 10/17/2024 4:24 PM EDT [facility] Lymphocytes % 29.1 % 10/17/2024 4:24 PM EDT [facility] Monocytes % 6.7 % 10/17/2024 4:24 PM EDT [facility] Eosinophils % 1.7 % 10/17/2024 4:24 PM EDT [facility] Basophils % 1.0 % 10/17/2024 4:24 PM EDT [facility] Neutrophils Absolute (A) 2.7 1.5 - 6.6 10*3/uL 10/17/2024 4:24 PM EDT [facility] Lymphocytes Absolute 1.3 1.0 - 3.5 10*3/uL 10/17/2024 4:24 PM EDT [facility] Monocytes Absolute 0.3 0.0 - 0.9 10*3/uL 10/17/2024 4:24 PM EDT [facility] Eosinophils Absolute 0.1 0.0 - 0.4 10*3/uL 10/17/2024 4:24 PM EDT [facility] Basophils Absolute 0.0 0.0 - 0.2 10*3/uL 10/17/2024 4:24 PM EDT [facility] Differential Type AUTOMATED DIFFERENTIAL 10/17/2024 4:24 PM EDT [facility] Blood Venous blood / Unknown Venipuncture / Unknown 10/17/2024 4:17 PM EDT 10/17/2024 4:20 PM EDT us Leia Michele DO LAB BLOOD ORDERABLES Final R esult [facility] [address] [place] [address], [place] * (ABNORMAL) Comprehensive metabolic panel (10/17/2024 4:17 PM EDT) SODIUM 136 134 - 146 mmol/L 10/17/2024 4:54 PM EDT [facility] POTASSIUM 3.3(L) 3.5 - 5.0 mmol/L 10/17/2024 4:54 PM EDT [facility] CHLORIDE 98 98 - 109 mmol/L 10/17/2024 4:54 PM EDT [facility] CARBON DIOXIDE 31 22 - 32 mmol/L 10/17/2024 4:54 PM EDT [facility] ANION GAP 7 5 - 15 mmol/L 10/17/2024 4:54 PM EDT [facility] BLOOD UREA NITROGEN 14 5 - 27 mg/dL 10/17/2024 4:54 PM EDT [facility] CREATININE 1.42(H) 0.40 - 1.00 mg/dL 10/17/2024 4:54 PM EDT [facility] Comment:METHOD TRACEABLE TO IDMS STANDARD GLUCOSE 91 65 - 99 mg/dL 10/17/2024 4:54 PM EDT [facility] CALCIUM 8.6 8.5 - 10.5 mg/dL 10/17/2024 4:54 PM EDT [facility] TOTAL PROTEIN 7.5 6.0 - 8.0 g/dL 10/17/2024 4:54 PM EDT [facility] ALBUMIN 3.7 3.2 - 5.3 g/dL 10/17/2024 4:54 PM EDT [facility] ALKALINE PHOSPHATASE 87 39 - 130 U/L 10/17/2024 4:54 PM EDT [facility] AST 33 <=41 U/L 10/17/2024 4:54 PM EDT [facility] ALT 20 <=31 U/L 10/17/2024 4:54 PM EDT [facility] BILIRUBIN,TOTAL 0.4 0.3 - 1.2 mg/dL 10/17/2024 4:54 PM EDT [facility] EGFR Non-Race Dependent 40(L) >=60 ml/min/1.7 3sq.m 10/17/2024 4:54 PM EDT [facility] Comment: eGFR not reported due to non-numeric value for Creatinine. Reported eGFR is based on the CKD-EPI 2020 equation that does not use a race coefficient. Blood Venous blood / Unknown Venipuncture / Unknown 10/17/2024 4:17 PM EDT 10/17/2024 4:20 PM EDT us Leia Michele DO LAB BLOOD ORDERABLES Final R esult [facility] [address] [place] [address], [place] * ECG 12 lead (10/17/2024 3:41 PM EDT) 10/17/2024 3:41 PM EDT Narrative [facility] - 10/18/2024 2:31 PM EDT us Leia Michele DO ECG ORDERABLES Final Result Performing Organization Address City/[facility]/ZIP Co de Phone Number [facility] * Surgical Pathology (10/02/2024 8:38 AM EDT) Case Report Surgical Pathology Report Case: [id number] Authorizing Provider: Rosalina Duran MD Collected: 10/02/2024 0838 Ordering Location: [facility] Received: 10/02/[address] [place] [address] - Surgery Pathologist: Terry Mariano MD Specimens: 1) - Colon, transverse colon polyp 2) - Colon, sigmoid colon polyp 10/13/2024 10:28 AM EDT [facility] Final Diagnosis 1. Transverse colon polyp: Tubular adenoma. 2. Sigmoid colon polyp, biopsy: Tubular adenoma. 10/13/2024 10:28 AM EDT [facility] at 1028 EDT Gross Description 1. Received in formalin labeled CARRANZA, transverse colon polyp , is a 0.8 x 0.5 x 0.4 cm duval bosselated sessile polyp, a 0.6 x 0.4 x 0.3 cm duval bosselated sessile polyp, and a 0.4 x 0.3 x 0.3 cm duval bosselated sessile polyp. The first polyps resection margin is inked green and the specimen is bisected. The second polyps resection margin is inked orange and is bisected. The third polyps resection margin is inked black and the specimen is bisected. The polyps are submitted entirely in a single cassette. (1,ns,[id number] 17-1, m1) SW 2. Received in formalin labeled DILLON, sigmoid colon polyp , is 1 duval feathery polypoid fragment 0.4 cm in greatest dimension. The specimen is filtered and submitted entirely in a single cassette. (1,ns,[id number] 17-2, m1) SW 10/13/2024 10:28 AM EDT [facility] Embedded Images 10/13/2024 10:28 AM EDT [facility] Tissue Colon structure / Unknown 10/02/2024 8:38 AM EDT 10/02/2024 11:57 AM EDT Comment:Pre-op diagnosis: history of colon polyps Tissue specimen (specimen) Colon structure / Unknown 10/02/2024 8:39 AM EDT 10/02/2024 11:57 AM EDT Comment:Pre-op diagnosis: history of colon polyps Rosalina Duran MD PATHOLOGY/CYTOLOGY ORDERAB LES Final Result [facility] [address] [place] [address], * Colonoscopy (10/02/2024 8:23 AM EDT) 10/02/2024 8:23 AM EDT Narrative PM CARDIOVASCULAR - 10/02/2024 8:43 AM EDT [facility] Patient Name: Temi Carranza Procedure Date No Time: 10/02/2024 CSN : [id number] Date of : 1955 Admit Type: Outpatient Age: 69 Room: [facility] OR Gender: Female Note Status: Finalized Attending MD: Rosalina Duran , , Procedure: Colonoscopy Indications: Screening for colorectal malignant neoplasm Providers: Rosalina Duran Referring MD: Rosalina Duran Medicines: Monitored Anesthesia Care Complications: No immediate complications. Procedure: After I obtained informed consent, the scope was passed under direct vision. Throughout the procedure, the patient's blood pressure, pulse, and oxygen saturations were monitored continuously. The OLYMPUS [id number] #[id number] ADULT COLONOSCOPE was introduced through the anus and advanced to the cecum, identified by appendiceal orifice and ileocecal valve. The colonoscopy was performed without difficulty. The patient tolerated the procedure well. The quality of the bowel preparation was good. The ileocecal valve, appendiceal orifice, and rectum were photographed. Findings: Two multi-lobulated polyps were found in the recto-sigmoid colon and transverse colon. The polyps were 2 to 7 mm in size. These polyps were removed with a hot snare. Resection and retrieval were complete. Estimated blood loss was minimal. Many diverticula were found in the sigmoid colon, descending colon and transverse colon. The exam was otherwise without abnormality. Estimated Blood Loss: Estimated blood loss was minimal. Impression: - Two 2 to 7 mm polyps at the recto-sigmoid colon and in the transverse colon, removed with a hot snare. Resected and retrieved. - Diverticulosis in the sigmoid colon, in the descending colon and in the transverse colon. - The examination was otherwise normal. Recommendation: - Await pathology results. Procedure Code(s): --- Professional --- 28295, Colonoscopy, flexible; with removal of tumor(s), polyp(s), or other lesion(s) by snare technique Diagnosis Code(s): --- Professional --- Z12.11, Encounter for screening for malignant neoplasm of colon CPT copyright 2022 [employer]. All rights reserved. The codes documented in this report are preliminary and upon disability case manager review may be revised to meet current compliance requirements. MD Rosalina Mckinney, 10/02/2024 8:42:44 AM This report has been signed electronically.Rosalina Duran Number of Addenda: 0 Note Initiated On: 10/02/2024 8:23 AM Procedure Note Rosalina Duran MD - 10/02/2024 [facility] Patient Name: Temi Carranza Procedure Date No Time: 10/02/2024 CSN : [id number] Date of : 1955 Admit Type: Outpatient Age: 69 Room: [place] [address] Gender: Female Note Status: Finalized Attending MD: Rosalina Duran , , Procedure: Colonoscopy Indications: Screening for colorectal malignant neoplasm Providers: Rosalina Duran Referring MD: Rosalina Duran Medicines: Monitored Anesthesia Care Complications: No immediate complications. Procedure: After I obtained informed consent, the scope was passed under direct vision. Throughout theprocedure, the patient's blood pressure, pulse, and oxygen saturations were monitored continuously. [employer] [id number] #[id number] ADULT COLONOSCOPE was introduced through the anus and advanced to the cecum,identified by appendiceal orifice and ileocecal valve. The colonoscopy was performed without difficulty. The patient tolerated the procedure well. The qualityof the bowel preparation was good. The ileocecalvalve, appendiceal orifice, and rectum werephotographed. Findings: Two multi-lobulated polyps were found in the recto-sigmoid colon and transverse colon. The polyps were 2 to 7 mm in size. These polypswere removed with a hot snare. Resection and retrieval were complete. Estimated blood loss was minimal. Many diverticula were found in the sigmoid colon, descending colonand transverse colon. The exam was otherwise without abnormality. Estimated Blood Loss: Estimated blood loss was minimal. Impression: - Two 2 to 7 mm polyps at the recto-sigmoid colonand in the transverse colon, removed with a hot snare. Resected and retrieved. - Diverticulosis in the sigmoid colon, in the descending colon and in the transverse colon. - The examination was otherwise normal. Recommendation: - Await pathology results. Procedure Code(s): --- Professional --- 27381, Colonoscopy, flexible; with removal of tumor(s), polyp(s), or other lesion(s) by snare technique Diagnosis Code(s): --- Professional --- Z12.11, Encounter for screening for malignant neoplasm of colon CPT copyright 2022 [employer]. All rights reserved. The codes documented in this report are preliminary and upon disability case manager reviewmay be revised to meet current compliance requirements. MD Rosalina Mckinney, 10/02/2024 8:42:44 AM This report has been signed electronically.Rosalina Duran Number of Addenda: 0 Note Initiated On: 10/02/2024 8:23 AM Rosalina Duran MD GI PROCEDURE ORDERABLES Fi nal Result PM [facility] * Colonoscopy Report (10/02/2024 8:04 AM EDT) Narrative SYSTEMGENERATED, DOCUMENTATION - 10/02/2024 8:04 AM EDT This order has been auto-finalized for image and report archival in PACs. *For full report details, please reach out to your physician. This image is visible to you in MyChart.* Rosalina Duran MD IMG OR IMG ORDERABLES Yadira l Result from Last 3 Months Insurance MEDICAID [place] [employer] MEDICARE Advance Directives * Full Code (Latest Code Status on File) Date Activated Date Inactivated Comments 07/25/2017 4:38 PM 07/26/2017 12:34 PM Care Teams Distribution Supervisor Relationship Specialty Start Date End Date Yvonne Frankel MD [address] [place] [address] PCP - General Family Medicine 10/17/24
--- NOTE | 2024-12-25 08:07 | CA_ITS ---
Patient Name: ARELIS CARRANZA MR#: [id number] : 1955 Exam Date: 12/25/2024 Ordering Doctor: DR CARLOS DANIEL M.D. ECHOCARDIOGRAM REPORT PROCEDURE: CA ECHO DOPPLER COMPLETE INDICATIONS: Sinus pause, syncope, SOB COMPARISON: None. DESCRIPTION: COMPLETE ECHOCARDIOGRAM Real-time transthoracic echocardiography with 2D, M-mode, spectral and color flow Doppler performed. QUALITY: Technical quality was good. LEFT VENTRICLE: Normal chamber size. Mildly thickened septal wall. Global left ventricular systolic function is normal, no wall motion abnormalities. Visual estimation of left ventricular ejection fraction is 65%. LV EF: DIASTOLIC: Diastolic function is indeterminate. ATRIAL SEPTUM: Visually appears normal LEFT ATRIUM: Mild dilatation. RIGHT ATRIUM: Mild dilatation. RIGHT VENTRICLE: Mild dilatation. Normal right ventricular systolic function. TRICUSPID VALVE: Normal mobility and thickness. No stenosis with trivial regurgitation. No evidence of pulmonary hypertension.RVSP 27mmHg. MITRAL VALVE: Normal mobility and thickness. No evidence of mitral valve stenosis. There is no mitral annular calcification. Trivial mitral regurgitation. AORTIC VALVE: Normal trileaflet appearance. Mildly calcified aortic valve. Normal leaflet mobility. No evidence of aortic valve stenosis. No aortic regurgitation. AORTIC ROOT: Normal diameter and appearance. PULMONIC VALVE: Not well visualized. No stenosis. No regurgitation. PERICARDIUM: No evidence of pericardial effusion. Anterior fat pad. IVC: Collapes with inspirations. Normal size. PLEURA: CONCLUSION: Mildly thickened septal wall Normal left ventricular systolic function without wall motion abnormalities, ejection fraction 65% Indeterminate left ventricular diastolic function Mild biatrial enlargement Mildly dilated right ventricle with normal systolic function Normal right-sided pressures, RVSP 27 mmHg No significant valvular abnormalities Adult Echocardiography Procedure Report Left Ventricle LVEDD (3.7 - 5.6 cm): 4.60 cm LVESD (2.2 - 4.0 cm): 3.08 cm LVIVS thickness (0.6 - 1.2 cm): 1.25 cm LVPW thickness (0.5 - 1.0 cm): 0.98 cm e': 0.08 m/s E - e': 11.20 LVOT Max Gradient: 4.71 mm[Hg] LVOT Area (cm2): 1.09 m/s Peak Velocity (LVOT): 1.09 m/s Mean Velocity (LVOT): 0.71 m/s LVOT Diameter 2.00 cm Left Ventricular Ejection Fraction: 73.07 % Left Atrium LA Volume Index (2D A2C): 37.27 ml/m2 Left Atrium Systolic Dimension: 3.84 cm Mitral Valve MV E to A Ratio: 1.24 MV Max Gradient: MV Mean Gradient: Mitral Valve A-Wave Peak Velocity: 0.72 m/s Mitral Valve E-Wave Peak Velocity: 0.90 m/s Cardiovascular Orifice Area: Right Ventricle RV Internal Diastolic Dimension: 4.48 cm Aorta AO Root Diam: 3.24 cm Ascending Ao Diam: 3.20 cm Aortic Valve AoV Area (Peak Atnony): 2.65 cm2, 2.65 cm2 AoV Area (VTI): 2.79 cm2, 2.79 cm2 Deceleration [place]: Pressure Half-Time: Peak Velocity(Antegrade Flow): 1.28 m/s Peak Gradient(Antegrade Flow): 6.56 mm[Hg] Mean Velocity(Antegrade Flow): 0.80 m/s Mean Gradient(Antegrade Flow): 3.04 mm[Hg] Velocity Time Integral: 32.21 cm Tricuspid Valve Peak Velocity (Regurgitant Flow): 2.45 m/s Peak Velocity: Pulmonic Valve Mean Gradient: 1.88 mm[Hg] Mean Velocity: 0.65 m/s Peak Velocity: 0.94 m/s, 0.99 m/s Peak Gradient: 3.96 mm[Hg], 3.51 mm[Hg] Right Atrium Right Atrium Systolic Pressure: 67.21 ml, 67.21 ml Dictated by: Sharad Bae MD on 12/27/2024 at 15:46 Approved by: Sharad Bae MD on 12/27/2024 at 15:54
== END 2024-12-25 07:50 | disposition home or self-care (01) ==
LOC: CARD 07:55
PROVIDERS: PCP Family Medicine; Visit Provider Internal Medicine Interventional Cardiology
DX: I45.5 Other specified heart block (principal); R42 Dizziness and giddiness; R55 Syncope and collapse; R06.02 Shortness of breath
CPT/HCPCS: 93306

== ENCOUNTER 2025-02-08 20:48 | Outpatient (OUT) | payer MEDICARE, MEDICAID, SELFPAY | END 2025-02-08 20:49 | disposition home or self-care (01) | PROVIDERS: PCP Internal Medicine Interventional Cardiology; Visit Provider Internal Medicine Interventional Cardiology | DX: G47.33 Obstructive sleep apnea (adult) (pediatric) (principal) | CPT/HCPCS: 95810 ==

== ENCOUNTER 2025-03-22 19:48 | Outpatient (OUT) | payer MEDICARE, MEDICAID, SELFPAY ==
--- OUTSIDE RECORDS SUMMARY | 2025-03-22 19:52 | XMS_ITS | Clinical Summary ---
Author Organization [facility] Address [address] [place] [address] Care Team Providers Care Network Pricing Consultant Name Role Phone Yvonne Frankel MD Primary Care Provider [phone] Allergies Active AllergyReactionsCriticalityNoted DateCommentsDuloxetineDiarrhea,Other, Qubvhal3209/18/2023 Medications MedicationSigDispense QuantityRefillsLast FilledStart DateEnd DateStatus aspirin 81 mg EC tablet Take 81 mg by mouth in the morning.07/23/2023ctive atorvastatin (Lipitor) 40 mg tablet Take 40 mg by mouth in the morning.10/15/2023ctive calcium carbonate-vitamin D3 500 mg-3.125 mcg (125 unit) tablet tablet Take 1 tablet by mouth in the morning./ctive fluticasone (Flonase) 50 mcg/actuation nasal spray Administer 2 sprays into each nostril in the morning./ctive furosemide (Lasix) 20 mg tablet Take 20 mg by mouth in the morning.10/15/2023ctive hydroCHLOROthiazide (HYDRODiuril) 25 mg tablet Take 25 mg by mouth in the morning.09/05/2024tive levothyroxine (Synthroid, Levoxyl) 200 mcg tablet Take by mouth in the morning.ctive lisinopril 10 mg tablet Take 10 mg by mouth in the morning.07/03/2024tive metFORMIN (Glucophage) 500 mg tablet Take 1,000 mg by mouth with breakfast and with evening meal.01/21/2023ctive metoprolol tartrate (Lopressor) 25 mg tablet Take 25 mg by mouth twice a day.5Active potassium chloride (Klor-Con) 20 mEq packet Take 20 mEq by mouth in the morning.Active sertraline (Zoloft) 50 mg tablet Take 50 mg by mouth in the morning.06/25/2023ctive traZODone (Desyrel) 50 mg tablet Take by mouth at bedtime.06/25/2023ctive omeprazole (PriLOSEC) [address] capsule Take 40 mg by mouth twice a day.5Active Active Problems ProblemNoted DateDiagnosed HkznQbxmarwobf32/31/2025Diabetes mellitus, type 2 11/26/20249970Dgdsuii47/31/2025Morbid (severe) obesity due to excess calories 10/05/2024 Overview (11/30/2024): Documented on 06/06/2022 by BRIAN LYNCH Mixed conductive and sensorineural hearing loss of left ear09/28/2024Glomus tympanicum tumor09/24/2024ilateral primary osteoarthritis of knee02/18/2024 Tobacco user04/04/2023bnormal liver mcunggkbin00/09/2023cquired hypothyroidism 03/07/20237956Gcfwazz81/09/1485Vikvfusyu16/09/2023enign essential hypertension 03/07/2023ipolar I ogokihce23/09/2023olon polyp03/07/2023 Overview (11/30/2024): TUBULOVILLOUS ADENOMA Pbmtpnmumshj95/09/2023Type 2 diabetes mellitus with stage 3 chronic kidney disease, without long-term current use of bewbatj1803/07/2023Elevated liver iigncqj3003/07/2023OSA (obstructive sleep apnea)03/07/2023Osteoarthritis of knee 03/07/2023RBBB03/07/2023Stage 3 chronic kidney zvfdhhf6303/07/2023Hearing loss 04/11/2020Tinnitus of left ear04/11/2020Abnormal cardiovascular stress test 08/22/2018 Overview (11/30/2024): Added automatically from request for surgery [id number] Chest pain08/22/2018History of thyroidectomy, total07/25/2017Thyroid nodule 07/22/2017Body mass index 50.0-59.9, adult06/03/2017 Encounters DateTypeDepartmentCare VockWakhmvnroti45/02/2025 11:15 AM EDTOffice Visit [facility] [address] [place] [phone] Cayden Mata MD Sinus pause (Primary Dx); Sinus bradycardia; Postural dizziness with near syncope; RBBB12/29/2024Orders Only [facility] [address] [place] [address] Provider, MD Jerome from Last 3 Months Family History Medical HistoryRelationNameCommentsHeart attackFatherCOPDMotherRelationName StatusCommentsFatherDeceasedMotherDeceased Social History Tobacco UseTypesPacks/DayYears UsedDateSmoking Tobacco: Some DaysCigarettes Smokeless Tobacco: Current Tobacco Cessation:Ready to Q uit: Not Asked; Counseling Given: Not Answered Comments:vape Alcohol UseStandard Drinks/WeekCommentsYes0 (1 standard drink = 0.6 oz pure alcohol)occasionalCommentsUnknownSex and Gender InformationValueDate RecordedSex Assigned at AbfxpWdaijf25/04/2025 1:07 PM EDTLegal SexFemale 11/04/2024 11:00 AM EDTGender XwlynzvsYatwmx83/04/2025 1:07 PM EDTSexual OrientationHeterosexual or Nnyjhsui98/04/2025 1:07 PM EDT Last Filed Vital Signs Vital SignReadingTime TakenCommentsBlood Bnkjwssx229/8412/29/2024 11:23 AM EDT Bgbas7066/02/2025 11:23 AM EDTTemperature--Respiratory Rate--Oxygen Saturation 94%12/29/2024 11:23 AM EDTInhaled Oxygen Concentration--Nqgrns387 kg (318 lb) 12/29/2024 11:23 AM GJWQxttro764.6 cm (5' 6 )12/29/2024 11:23 AM EDTBody Mass Index51.3309/05/2024 11:23 AM EDT Plan of Treatment Health MaintenanceDue DateLast DoneCommentsCT Wzsgfppilcqj89/10/1956Diabetes: Hemoglobin A1C1953FIT-DNA1953FIT1953FOBT1953Medicare Annual Wellness (AWV)1955 8398Xjyfhevozvtuo24/10/1954Diabetes: Retinopathy Ahewgmwsr48/10/1964Depression Tgmeeqxlj71/10/1966Adult Bdyuqbw8905/08/1975Fall Risk Pfvbzobza36/10/2019Zoster Vaccines (2 of 2)/4Diabetes: Urine Protein Yveikjsqy28/OVID-19 Vaccine ( season) 12/28/20249565Gtdpxrtxu15/29/9900409241Cvffwieowjk24/06/203506/09/2024, 10/02/2024, 11/20/2018Colorectal Cancer Vxonjhoue97/06/2035Influenza Vaccine Ebncszluy38/09/2025, 12/30/2023, 3Pneumococcal Vaccine: 50+ Years Upyunzazv97/09/2025, 08/26/2018, 02/20/2013HIB VaccinesAged OutNo longer eligible based on patient's age to complete this topicHPV VaccinesAged OutNo longer eligible based on patient's age to complete this topicIPV VaccinesAged OutNo longer eligible based on patient's age to complete this topicMeningococcal B VaccineAged OutNo longer eligible based on patient's age to complete this topicMeningococcal VaccineAged OutNo longer eligible based on patient's age to complete this topicRotavirus VaccinesAged OutNo longer eligible based on patient's age to complete this topic Procedures Procedure NamePriorityDate/TimeAssociated DiagnosisCommentsCOMPLETE TRANSTHORACIC ECHO (TTE) W/WO IMAGING AGENT, STRAIN, 3D, BUBBLE STUDYRoutine 12/29/2024 8:15 AM EDTfrom Last 3 Months Results * Complete Echo (TTE) w/wo Imaging Agent, Strain, 3D, Bubble Study (12/29/2024 8:15 AM EDT)Anatomical RegionLateralityModalityUltrasound Narrative Authorizing ProviderResult TypeResult StatusHistorical Provider MDCV ECHO PROCEDURESFinal Result from Last 3 Months Insurance Care Teams Team MemberRelationshipSpecialtyStart DateEnd Yvonne Frankel MD [address] [place] [address] PCP - GeneralFamily Medicine11/27/24
--- OUTSIDE RECORDS SUMMARY | 2025-03-22 19:52 | XMS_ITS | Encounter Summary ---
Author Organization [facility] Address [address] [place] [address] Care Team Providers Care Imaging Science Professor Name Role Phone Yvonne Frankel MD Primary Care Provider [phone] Yvonne Frankel MD Unavailable Encounter Details DateTypeDepartmentCare Team (Latest Contact Info)Btvwurvftjt65/13/2025Patient Outreach [facility] [address] [place] [phone] Jenna Willson, BLOCKER POLISHING [address] [place], [place] [phone] Social History Tobacco UseTypesPacks/DayYears UsedDateSmoking Tobacco: Every DayCigarettes Smokeless Tobacco: NeverAlcohol UseStandard Drinks/WeekCommentsNever0 (1 standard drink = 0.6 oz pure alcohol)caffeine 1-2 cups/day; pocrjgR5268 Health LiteracyAnswerDate RecordedHow often do you need to have someone help you when you read instructions, pamphlets, or other written material from your doctor or pharmacy?Never12/13/2023Humiliation, Afraid, Rape, and Kick questionnaireAnswer Date RecordedWithin the last year, have you been afraid of your partner or ex-partner?No12/13/2023Within the last year, have you been humiliated or emotionally abused in other ways by your partner or ex-partner?No12/13/2023 Within the last year, have you been kicked, hit, slapped, or otherwise physically hurt by your partner or ex-partner?No12/13/2023Within the last year, have you been raped or forced to have any kind of sexual activity by your part ner or ex-partner?No12/13/2023Social Connection and Isolation PanelAnswerDate RecordedIn a typical week, how many times do you talk on the phone with family, friends, or neighbors?More than three times a week12/13/2023How often do you get together with friends or relatives?More than three times a week12/13/2023How often do you attend uatsdin or congregation services?More than 4 times per year 12/13/2023o you belong to any clubs or organizations such as uatsdin groups, unions, fraDartPoints or athletic groups, or school groups?No12/13/2023ttends Club or Organization MeetingsNot on file12/13/2023re you , , , , never , or living with a partner?Pytodzhp30/16/2024UDIT-C AnswerDate RecordedQ1: How often do you have a drink containing alcohol?2-4 times a month12/13/2023Q2: How many drinks containing alcohol do you have on a typical day when you are drinking?1 or Q3: How often do you have six or more drinks on one occasion?Never12/13/2023Overall Financial Resource Strain (CARDIA)AnswerDate RecordedHow hard is it for you to pay for the very basics like food, housing, medical care, and heating?Not very hard12/13/2023HQ-2Answer Date RecordedPatient Health Questionnaire-2 Orydi892Finamerican fork hospital [place] of Occupational Health - Occupational Stress QuestionnaireAnswerDate RecordedDo you feel stress - tense, restless, nervous, or anxious, or unable to sleep at night because yourmind is troubled all the time - these days?Not at all12/13/2023 Exercise Vital SignAnswerDate RecordedOn average, how many days per week do you engage in moderate to strenuous exercise (like a brisk walk)?7 days12/13/2023On average, how many minutes do you engage in exercise at this level?10 min 12/13/2023Hunger Vital SignAnswerDate RecordedWithin the past 12 months, you worried that your food would run out before you got the money to buymore.Never true12/13/2023Within the past 12 months, the food you bought just didn't last and you didn't have money to get more.Never true12/13/2023RAPARE - TransportationAnswerDate RecordedIn the past 12 months, has lack of transportation kept you from medical appointments or from getting medications?No 12/13/2023In the past 12 months, has lack of transportation kept you from meetings, work, or from getting things needed for daily living?No12/13/2023 Housing Stability Vital SignAnswerDate RecordedUnable to Pay for Housing in the Last YearNot on file07/25/2023In the last 12 months, how many places have you lived?In the last 12 months, was there a time when you did not have a steady place to sleep or slept in [place] (including now)?No07/25/2023Housing Stability Vital SignAnswerDate RecordedIn the last 12 months, was there a time when you were not able to pay the mortgage or rent on time?No12/13/2023In the past 12 months, how many times have you moved where you were living? At any time in the past 12 months, were you homeless or living in a chcf (including now)?No12/13/2023CommentsUnknownSex and Gender Information ValueDate RecordedSex Assigned at BirthNot on fileLegal XfsIpyupm82/15/2023 6:58 PM EDTGender IdentityNot on fileSexual OrientationNot on filedocumented as of this encounter Progress Notes * MICHELLE Lee - 03/11/2025 9:04 AM EST <March 11, 2025, 09:04 - MICHELLE Lee> VM from PATRICK Martinez at [address] She inquires about med-box that was ordered for pt as it still has not been delivered. She requests call back at [phone] for pt's [employer] telephonic nurse case manager Elena [phone] requesting return call re: med-box <March 11, 2025, 11:51 - MICHELLE Lee> Return vm from Elena at [facility] advising she has cancelled order for med-box through [employer] and is going to try purchasing through [facility] instead. If they get box from [place] it will be tokeep rather than a rental. Elena advises we may receive CMN from [place] if they wish to try to billthrough Medicaid first, but if not [facility] will pay for med-box. Called and gave update to Michelle at [address] documented in this encounter Plan of Treatment DateTypeDepartmentCare Team (Latest Contact Info)Ejxvzoxxzny96/25/2025 3:45 PM ESTAncillary Procedure [facility] [address] [address] 03/29/2025 4:20 PM ESTOffice Visit [facility] [address] [place] [phone] Yvonne Frankel MD [address] [place] [address] 04/06/2025 3:40 PM ESTOffice Visit [facility] [address] [place] [phone] Yvonne Frankel MD [address] [place] [address] documented as of this encounter Visit Diagnoses Diagnosis Type 2 diabetes mellitus with stage 3 chronic kidney disease, without long-term current use of insulin, unspecified whether stage 3a or 3b CKD (HCC)- Primary Hypertension, unspecified type documented in this encounter Additional Health Concerns AssessmentNoted TimePHQ-9 Depression Total Score: 11:00 AM EDT documented as of this encounter Care Teams Team MemberRelationshipSpecialtyStart DateEnd Date Yvonne Frankel MD [address] [place] [address] [facility] - [facility] Yvonne Frankel MD [address] [place], [place] [phone] PCP - [facility]/04/2511documented as of this encounter
--- OUTSIDE RECORDS SUMMARY | 2025-03-22 19:52 | XMS_ITS | Clinical Summary ---
Author Organization [facility] Address [address] [place] [address] Phone Care Team Providers Care Machine Setter And Repairer Name Role Phone Yvonne Frankel MD Primary Care Provider [phone] Allergies Active AllergyReactionsCriticalityNoted DateCommentsDuloxetineDiarrhea,Other 09/18/2023 Medications MedicationSigDispense QuantityRefillsLast FilledStart DateEnd DateStatus aspirin 81 mg EC tablet 07/23/2023ctive atorvastatin (Lipitor) 40 mg tablet Take 1 tablet (40 mg) by mouth.10/15/2023ctive fluticasone (Flonase) 50 mcg/actuation nasal spray Administer 2 sprays into affected nostril(s) once daily.01/20/2024ctive furosemide (Lasix) 20 mg tablet Take 1 tablet (20 mg) by mouth once daily in the morning. Take before meals. 10/15/2023ctive hydroCHLOROthiazide (HYDRODiuril) 25 mg tablet Take 1 tablet (25 mg) by mouth once daily.09/05/2024tive metFORMIN (Glucophage) 500 mg tablet Take 2 tablets (1,000 mg) by mouth 2 times daily (morning and late afternoon). 01/21/2023ctive lisinopril 10 mg tablet Take 1 tablet (10 mg) by mouth once daily.07/03/2024tive metoprolol tartrate (Lopressor) 25 mg tablet Take 1 tablet (25 mg) by mouth twice a day.07/03/2024tive mometasone (Elocon) 0.1 % ointment APPLY TO AFFECTED AREA TOPICALLY EVERY DAYActive potassium chloride (Klor-Con) 20 mEq packet Take 20 mEq by mouth once daily.Active polyethylene glycol (Glycolax, Miralax) 17 gram packet Take 17 g by mouth once daily.5Active traZODone (Desyrel) 50 mg tablet 4Active sertraline (Zoloft) 50 mg tablet Take 1 tablet (50 mg) by mouth once daily in the morning. Take before meals. Active levothyroxine (Synthroid, Levoxyl) 150 mcg tablet Take 1 tablet (150 mcg) by mouth once daily in the morning. Take before meals. 4Active HYDROcodone-acetaminophen (Bovill) 10-325 mg tablet Indications:Glomus tympanicum tumor,Post-operative painTake 1 tablet by mouth every 6 hours if needed for severe pain (7 - 10). 20 tablet 5Active ofloxacin (Floxin) 0.3 % otic solution Indications:Glomus tympanicum tumorAdminister 4 drops into affected ear(s) 2 times a day. 10 mL 5Active Additional Information Patient not taking.Reported on 12/14/2024 Active Problems ProblemNoted DateDiagnosed DatePulsatile fohmvfdu09/18/2025HTN (hypertension) 11/26/2024OSA (obstructive sleep apnea)11/26/2024Diabetes mellitus, type 2 11/26/20249443Ssiubltojsfidr87/31/1069Xtfzcgy82/31/7428Lqfpfxa79/31/2025Depression 11/26/2024ipolar pwevcsau49/31/2025Mixed conductive and sensorineural hearing loss of left ear09/28/2024Glomus tympanicum tumor09/24/2024 Family History Medical HistoryRelationNameCommentsNo Known ProblemsFatherNo Known Problems MotherDeep vein thrombosisSisterPulmonary embolismSisterRelationNameStatus CommentsFatherMotherSister Social History Tobacco UseTypesPacks/DayYears UsedDateSmoking Tobacco: Every PbpWyvkeidzke007 Passive Smoke Exposure: NeverSmokeless Tobacco: Never Tobacco Cessation:Ready to Q uit: Not Asked; Counseling Given: Not Answered Alcohol UseStandard Drinks/WeekCommentsNot Currently0 (1 standard drink = 0.6 oz pure alcohol)PHQ-2AnswerDate RecordedPatient Health Questionnaire-2 Score0 12/14/2024CommentsNoSex and Gender InformationValueDate RecordedSex Assigned at BirthNot on fileLegal AlhZczxgu75/25/2025 1:29 PM EDTGender Identity Not on fileSexual OrientationNot on file Last Filed Vital Signs Vital SignReadingTime TakenCommentsBlood Prgcrost580/7407 6:45 PM EDT Oukbr747911/26/2024 6:45 PM IEXXeoyaabzqzc42.5 ??C (97.7 ??F)12/14/2024 1:29 PM EDTRespiratory Aufa327911/26/2024 6:45 PM EDTOxygen Jmgyrkdmdd25%11/26/2024 6:45 PM EDTInhaled Oxygen Concentration--Skbbyc261 kg (312 lb)12/14/2024 1:29 PM EDT Habxvu799.1 cm (5' 5 )11/26/2024 12:55 PM EDTBody Mass Index51.9211/26/2024 12:55 PM EDT Plan of Treatment DateTypeDepartmentCare Team (Latest Contact Info)Xfzfiptnflq37/04/2025 2:00 PM ESTClinical Support [facility] [address] [phone] Estella Bonilla, AUD, CCC-A [address] [address] 04/01/2025 2:[address] [facility] [phone] [place] [address] [place] [address] Department of Otolaryngology [address] [place] [phone] Health MaintenanceDue DateLast DoneCommentsCT Rlpebwwlklcd38/10/1954iabetes: Hemoglobin A1C1953FIT-DNA (Cologuard)1953FIT1953Lipid Panel 01/10/9219Ygrwufnporbnh22/10/1954Welcome to Medicare Visit1953MMR Vaccines (1 of 1 - Standard series)1954Diabetes: Retinopathy Bzkkdfegg22/10/1964 Hepatitis C Nubanwzkd15/10/1972Hepatitis A Vaccines (1 of 2 - Risk 2-dose series)1972DTaP/Tdap/Td Vaccines (1 - Tdap)1975RSV High Risk: (Elderly (60+) or Population) (1 - Risk 50-74 years 1-dose series) 2003Hepatitis B Vaccines (1 of 3 - Risk 3-dose series)2013 Pneumococcal Vaccine (3 of 3 - PCV20 or PCV21)/, 02/20/2013 Zoster Vaccines (2 of 2)409/one Density Scan09/03/2024 09/03/2022Influenza Vaccine (#1)/05/2023, 03/07/2023, 04/16/2022, Additional history existsDiabetes: Urine Protein Ltyonyqdo17/ COVID-19 Vaccine ( season)/, 09/07/2020ung Cancer Qizyzdjgy41, 08/10/20210397Ejcylliuq28, 02/25/2024, 09/12/2022, Additional history existsTSH Level//431210/10/2024 Ydbukypdzwk71/06/203506/09/2024, 10/02/2024, 03/06/2024, Additional history existsColorectal Cancer Djccybgen31/06/2035HIB VaccinesAged OutNo longer eligible based on patient's age to complete this topicHPV VaccinesAged OutNo longer eligible based on patient's age to complete this topicIPV VaccinesAged OutNo longer eligible based on patient's age to complete this topicMeningococcal VaccineAged OutNo longer eligible based on patient's age to complete this topic Rotavirus VaccinesAged OutNo longer eligible based on patient's age to complete this topic Medical Devices ImplantedTypeAreaManufacturerDevice IdentifierShelf Expiration DateModel / Serial / LotGraft, Biodesign, Ot[employer]air, 0.6.-0.9cm - [id number] Implanted:Qty: 1 on 11/26/2024 by [facility] ImplantLeft: EarCOOK MEDICAL [id number] / / [id number] Insurance Advance Directives For more information, please contact: [phone] (Available ) * Full Code (Latest Code Status on File) Date ActivatedDate InactivatedComments11/26/2024 12:48 PMQuestionAnswerComments Plan of Care:* Code Status Discussion Completed Decision Maker:* Patient Care Teams Team MemberRelationshipSpecialtyStart DateEnd Date Yvonne Frankel MD [address] [facility] [place] [address] PCP - GeneralFamily Medicine08/26/24
--- OUTSIDE RECORDS SUMMARY | 2025-03-22 19:52 | XMS_ITS | Clinical Summary ---
Author Organization [facility] Address [address] [place] [address] Care Team Providers Care Cloud Systems Architect Name Role Phone Yvonne Kong MD Primary Care Provider Yvonne Kong MD Unavailable Allergies Active AllergyReactionsCriticalityNoted DateCommentsDuloxetine HclDiarrhea 09/18/2023 Medications MedicationSigDispense QuantityRefillsLast FilledStart DateEnd DateStatus atorvastatin (Lipitor) 40 MG tablet Indications:Hypertension, unspecified typeTake 1 tablet (40 mg) by mouth in the morning. 90 tablet 5Active Calcium Carb-Cholecalciferol (Oyster Shell Calcium + D3) 500-10 MG-MCG tablet Indications:Acquired hypothyroidism,Vitamin D deficiencyTake 1 tablet by mouth in the morning. 90 tablet ctive fluticasone (Flonase) 50 MCG/ACT nasal spray Indications:Benign essential hypertension,Acute otitis media, unspecified otitis media typeAdminister 1-2 sprays into each nostril Daily Shake gently. Before first use, prime pump. After use, clean tip and replace cap. 48 mL ctive levothyroxine (Synthroid) 200 MCG tablet Indications:Acquired hypothyroidismTake 1 tablet (200 mcg) by mouth in the morning. Take before meals. 90 tablet ctive sertraline (Zoloft) 50 MG tablet Indications:Bipolar I disorder (HCC),AnxietyTake 1 tablet (50 mg) by mouth in the morning. 90 tablet 6Active traZODone (Desyrel) 50 MG tablet Indications:Bipolar I disorder (HCC),AnxietyTake 1 tablet (50 mg) by mouth as needed at bedtime for sleep or depression 90 tablet /ctive aspirin (Aspirin Low Dose) 81 MG EC tablet Indications:Hypertension, unspecified typeTake 1 tablet (81 mg) by mouth in the morning. 90 tablet 5Active lisinopril 10 MG tablet Indications:Benign essential hypertensionTake 1 tablet (10 mg) by mouth Daily 30 tablet 506Active potassium chloride CR (K-Tab) 20 MEQ ER tablet Indications:Hypertension, unspecified typeTake 1 tablet (20 mEq) by mouth Daily 90 tablet 6Active furosemide (Lasix) 20 MG tablet Indications:Hypertension, unspecified typeTake 1 tablet (20 mg) by mouth in the morning. 90 tablet 5Active pantoprazole (ProtoNix) 40 MG EC tablet Take 40 mg by mouth Daily Do not crush, chew, or split.5Active Active Problems ProblemNoted DateDiagnosed DateMorbid (severe) obesity due to excess calories 10/05/2024 Overview (10/05/2024): Documented on 06/06/2022 by BRIAN CISSE Mixed conductive and sensorineural hearing loss of left ear09/28/2024Glomus tympanicum tumor09/24/2024ilateral primary osteoarthritis of knee02/18/2024 Assessment & Plan (11/03/2024 10:19 PM EDT): Orders: triamcinolone acetonide (Kenalog-40) injection 40 mg Tobacco user04/04/2023 Assessment & Plan (02/26/2025 1:17 PM EDT): Advised on importance of quiting pt in precontemplative phase Orders: CT lung screening low dose; Future Abnormal liver iomntwxsvn03/09/2023 Assessment & Plan (02/26/2025 1:17 PM EDT): monitor Acquired esodrabxniiyxc35/09/2023 Assessment & Plan (02/26/2025 1:17 PM EDT): Cont with levothyroxine Rojaieh9203/07/20239958Mwnrnufrv68/09/2023enign essential vfcqjwynsrld37/09/2023 Bipolar I /09/2023 Assessment & Plan (02/26/2025 1:17 PM EDT): Stabel per psychiatry Colon polyp03/07/2023 Overview (03/07/2023): TUBULOVILLOUS ADENOMA Tocriybqgymv53/09/2023Elevated liver qlojltw0003/07/2023OSA (obstructive sleep apnea)03/07/2023Osteoarthritis of knee03/07/2023RBBB03/07/2023Stage 3 chronic kidney hcgmccv2003/07/2023 Assessment & Plan (02/26/2025 1:17 PM EDT): Stable cont to monitor labs Type 2 diabetes mellitus with stage 3 chronic kidney disease, without long-term current use of yxzjzhd4203/07/2023 Assessment & Plan (02/26/2025 1:17 PM EDT): Orders: POCT glycosylated hemoglobin (Hb A1C) docked device History of thyroidectomy, total07/25/2017Body mass index 50.0-59.9, adult 06/03/2017 Encounters DateTypeDepartmentCare LmflTsvorhisjwa95/24/2025Patient Outreach [facility] [address] [place] [address] Jenna Willson LSW 03/11/2025Patient Outreach [facility] [address] [place] [address] Oswaldo Marcelo LPN 03/11/2025Patient Outreach [facility] [address] [place] [address] Jenna Willson, SENIOR BILLING CONSULTANT 03/04/2025Patient Outreach [facility] [address] [place] [address] Jenna Willson, SENIOR BILLING CONSULTANT 02/18/2025Patient Outreach [facility] [address] [place] [address] Jenna Willson, SENIOR BILLING CONSULTANT 02/17/2025Patient Outreach [facility] [address] [place] [address] Jenna Willson, SENIOR BILLING CONSULTANT 01/26/2025Patient Outreach [facility] [address] [place] [address] Jenna Willson, SENIOR BILLING CONSULTANT 01/26/2025bstract [facility] [address] [place] [address] Yvonne Kong MD 01/25/2025Patient Outreach [facility] [address] [place] [address] Jenna Willson, SENIOR BILLING CONSULTANT 01/25/20253926Dtqbdr71/26/2025Patient Outreach [facility] [address] [place] [address] Jenna Willson, SENIOR BILLING CONSULTANT 01/18/2025Patient Outreach [facility] [address] [place] [address] Jenna Willson, SENIOR BILLING CONSULTANT 01/15/2025Patient Outreach [facility] [address] [place] [address] AnamikaJenna roblero, SENIOR BILLING CONSULTANT 01/05/2025 4:[address] [address] [place] [address] Yvonne Kong MD Acquired hypothyroidism (Primary Dx); Encounter for immunization; Type 2 diabetes mellitus with stage 3 chronic kidney disease, without long-term current use of insulin, unspecified whether stage 3a or 3b CKD (HCC); Abnormal liver ultrasound; Bipolar I disorder (HCC); Stage 3 chronic kidney disease, unspecified whether stage 3a or 3b CKD (CMS-HCC); Tobacco user; Nicotine dependence, cigarettes, uncomplicated; Urine, incontinence, stress rbwmwt2101/05/2025Patient Outreach [facility] [address] [place] [address] Oswaldo Marcelo LPN 01/05/2025Patient Outreach [facility] [address] [place] [address] Jenna Willson, [facility] 01/05/2025amboo flowsheet [facility] [address] [place] [address] Yvonne Kong MD 01/05/20251883Wlouwf27/08/2025Patient Outreach [facility] [address] [place] [address] Jenna Willson, [facility] 12/30/2024Results Follow-Up [facility] [address] [place] [phone] Yvonne Kong MD CA ECHO DOPPLER AQGCVKUS63/02/2025Patient Outreach [facility] [address] [place] [address] Oswaldo Marcelo LPN 12/27/2024linisync Result Encounter [facility] External Department Unsolicited Provider, Generic External Data 12/22/2024Travelfrom Last 3 Months Immunizations ImmunizationAdministration DatesNext DueInfluenza, High Dose Seasonal, Preservative Free12/30/2023Influenza, High-dose Seasonal, Quadrivalent, Preservative Free01/05/2025,03/07/2023neumococcal Conjugate PCV 13008/26/2018 Pneumococcal Conjugate PCV Pneumococcal Polysaccharide PPSV23 02/20/2013Zoster, Plyhgirmhxb39/02/2024 Family History Medical HistoryRelationNameCommentsAlzheimer's diseaseMotherDementiaMother HypertensionMotherRelationNameStatusCommentsFatherDeceasedMotherDeceased Social History Tobacco UseTypesPacks/DayYears UsedDateSmoking Tobacco: Every DayCigarettes Smokeless Tobacco: Never Tobacco Cessation:Ready to Q uit: Not Asked; Counseling Given: Not Answered Alcohol UseStandard Drinks/WeekCommentsNever0 (1 standard drink = 0.6 oz pure alcohol)caffeine 1-2 cups/day; [id number] Health LiteracyAnswerDate RecordedHow often do you need to have someone help you when you read instructions, pamphlets, or other written material from your doctor or pharmacy?Never 12/13/2023Humiliation, Afraid, Rape, and Kick questionnaireAnswerDate Recorded Within the last year, have you been afraid of your partner or ex-partner?No 12/13/2023Within the last year, have you been humiliated or emotionally abused in other ways by your partner or ex-partner?No12/13/2023Within the last year, have you been kicked, hit, slapped, or otherwise physically hurt by your partner or ex-partner?No12/13/2023Within the last year, have you been raped or forced to have any kind of sexual activity by your partner or ex-partner?No12/13/2023 Social Connection and Isolation PanelAnswerDate RecordedIn a typical week, how many times do you talk on the phone with family, friends, or neighbors?More than three times a week12/13/2023How often do you get together with friends or relatives?More than three times a week12/13/2023How often do you attend restorationist or evangelical services?More than 4 times per year12/13/2023o you belong to any clubs or organizations such as restorationist groups, unions, fraternal or athletic david ups, or school groups?No12/13/2023ttends Club or Organization MeetingsNot on file12/13/2023re you , , , , never , or living with a partner?Vvcprjba17/16/2024UDIT-CAnswerDate RecordedQ1: How often do you have a drink containing alcohol?2-4 times a month12/13/2023Q2: How many drinks containing alcohol do you have on a typical day when you are drinking?1 or Q3: How often do you have six or more drinks on one occasion?Never 12/13/2023Overall Financial Resource Strain (CARDIA)AnswerDate RecordedHow hard is it for you to pay for the very basics like food, housing, medical care, and heating?Not very hard12/13/2023HQ-2AnswerDate RecordedPatient Health Questionnaire-2 Jrixx044FinSelect [facility]ty [facility] of Occup[facility] - Occupational Stress QuestionnaireAnswerDate RecordedDo you feel stress - tense, restless, nervous, or anxious, or unable to sleep at night because yourmind is troubled all the time - these days?Not at all12/13/2023Exercise Vital SignAnswer Date RecordedOn average, how many days per week do you engage in moderate to strenuous exercise (like a brisk walk)?7 days12/13/2023On average, how many minutes do you engage in exercise at this level?10 min12/13/2023Hunger Vital SignAnswerDate RecordedWithin the past 12 months, you worried that your food would run out before you got the money to buymore.Never true12/13/2023Within the past 12 months, the food you bought just didn't last and you didn't have money to get more.Never true12/13/2023RAPARE - TransportationAnswerDate RecordedIn the past 12 months, has lack of transportation kept you from medical appointments or from getting medications?No12/13/2023In the past 12 months, has lack of transportation kept you from meetings, work, or from getting things needed for daily living?No12/13/2023Housing Stability Vital SignAnswerDate RecordedUnable to Pay for Housing in the Last YearNot on file07/25/2023In the last 12 months, how many places have you lived?In the last 12 months, was there a time when you did not have a steady place to sleep or slept in a fci (including now)?No07/25/2023Housing Stability Vital SignAnswerDate RecordedIn the last 12 months, was there a time when you were not able to pay the mortgage or rent on time?No12/13/2023In the past 12 months, how many times have you moved where you were living?t any time in the past 12 months, were you homeless or living in a fci (including now)?No12/13/2023 CommentsUnknownSex and Gender InformationValueDate RecordedSex Assigned at BirthNot on fileLegal QqcNwuzuf35/15/2023 6:58 PM EDTGender IdentityNot on fileSexual OrientationNot on file Last Filed Vital Signs Vital SignReadingTime TakenCommentsBlood Iwruizht333/7809 3:39 PM EDT Vvtey053801/05/2025 3:39 PM EOALcwqzrypffv66 ??C (98.6 ??F)04/04/2023 2:10 PM EST Respiratory Qqbo001101/05/2025 3:39 PM EDTOxygen Scdtcvpujm36%01/05/2025 3:39 PM EDTInhaled Oxygen Concentration--Lkxpci168 kg (321 lb)01/05/2025 3:39 PM EDT Xaedar639.6 cm (5' 6 )01/05/2025 3:39 PM EDTBody Mass Index51.8101/05/2025 3:39 PM EDT Plan of Treatment DateTypeDepartmentCare Team (Latest Contact Info)Gkajaetmzkj35/25/2025 3:45 PM ESTAncillary Procedure [facility] [address] [facility] [address] [place] [phone] 03/29/2025 4:20 PM ESTOffice Visit [facility] [facility] [place] [phone] Yvonne Kong MD [address] [place] [address] 04/06/2025 3:40 PM ESTOffice Visit [facility] [facility] [place] [phone] Yvonne Kong MD [address] [place] [address] [phone] Health MaintenanceDue DateLast DoneCommentsCT Ylruwafhkprf11/10/1954FIT-DNA 1955FIT1955FOBT1955 2363Vyijiaylhrnbe73/10/1954iabetes: Urine Protein Fhcyauqsi14/, 09/03/2022, 03/27/2021, Additional history existsMedicare Annual Wellness (AWV), 12/26/2023, 12/26/2023, Additional history existsCOVID-19 Vaccine ( season) /, 09/07/20205398Jbkrgjqgh94, 09/12/2022, 08/24/2021, Additional history existsDiabetes: Hemoglobin A1C04/06/2025 01/05/2025, 10/05/2024, 07/03/2024, Additional history existsDiabetes: Retinopathy Zvkyzbhuk49/3397Ztggnqpeayb19/06/203506/09/2024, 10/02/2024, 10/02/2024, Additional history existsColorectal Cancer Screening 10/02/2034Influenza WoiudrtCfaoowqcy97/09/2025, 12/30/2023, 03/07/2023 Pneumococcal Vaccine: 65+ SupevNqinmubqv06/09/2025, 08/26/2018, 02/20/2013 Procedures Procedure NamePriorityDate/TimeAssociated DiagnosisCommentsPOCT GLYCOSYLATED HEMOGLOBIN (HGB A1C)Fdfjrxf8501/05/2025 3:48 PM EDT Type 2 diabetes mellitus with stage 3 chronic kidney disease, without long-term current use of insulin, unspecified whether stage 3a or 3b CKD (HCC) CA ECHO DOPPLER BTAYJZHD94/31/2025 3:54 PM EDT BI MAMMOGRAM SCREENING TOMOSYNTHESIS YARTSMRYWRnqaogx09/29/2024 3:54 PM EDT Encounter for screening mammogram for malignant neoplasm of breast MICROALBUMIN / CREATININE URINE VTJEUXdzumfc72/29/2024 1:18 PM EDT Type 2 diabetes mellitus with stage 3 chronic kidney disease, without long-term current use of insulin, unspecified whether stage 3a or 3b CKD (HCC) COLOR FUNDUS PHOTOGRAPHY - OU - BOTH SCDIRqhobqm01/20/2023 11:43 AM EST Type 2 diabetes mellitus with stage 3 chronic kidney disease, without long-term current use of insulin, unspecified whether stage 3a or 3b CKD (HCC) OOMWSGCUVZFIixssoz04/25/2019 12:00 PM EDT from Last 3 Months or Most Recently Relevant to Health Maintenance Results * (ABNORMAL) POCT glycosylated hemoglobin (Hb A1C) docked device (01/05/2025 3:48 PM EDT)ComponentValueRef RangeTest MethodAnalysis TimePerformed At Pathologist SignatureHemoglobin A1C5.8Specimen (Source)Anatomical Location / LateralityCollection Method / VolumeCollection TimeReceived TimeBloodVenous blood specimen / Yasjfda1701/05/2025 3:48 PM EDT Narrative Authorizing ProviderResult TypeResult StatusYvonne Kong MDPOINT OF CARE TEST ENTER/EDIT ORDERABLESFinal Result * CA ECHO DOPPLER COMPLETE (12/27/2024 3:54 PM EDT)Anatomical RegionLaterality ModalityOtherSpecimen (Source)Anatomical Location / LateralityCollection Method / VolumeCollection TimeReceived Time12/27/2024 3:54 PM EDT Narrative 12/27/2024 3:55 PM EDT [facility] ?[address] ? [place] [address] ? Cardiology Report ? Signed ? Patient: ARELIS CARRANZA ?MR#: [id number] ?? : 1955 ?Acct:[id number] ?? Age/Sex: 69 / F ?ADM Date: 12/25/24 ?? Loc: CARD ? Attending Dr: CARLOS DANIEL ? Ordering Physician: CARLOS DANIEL ?? Date of Service: 12/25/24 ?? Procedure(s): CA echo doppler complete ?? Accession Number(s): [id number] ? cc: YVONNE KONG ; CARLOS DANIEL ? Patient Name: ? ARELIS CARRANZA ? MR#: [id number] ? : 1955 ? Exam Date: 12/25/2024 ?? Ordering Doctor: DR CARLOS DANIEL M.D. ? ECHOCARDIOGRAM REPORT ? PROCEDURE: ? CA ECHO DOPPLER COMPLETE ? INDICATIONS: ? Sinus pause, syncope, SOB ? COMPARISON: ? None. ? DESCRIPTION: ? COMPLETE ECHOCARDIOGRAM Real-time transthoracic ?? echocardiography with 2D, M-mode, spectral and color flow Doppler performed. ? QUALITY: ? Technical quality was good. ? LEFT VENTRICLE: ? Normal chamber size. Mildly thickened septal wall. Global ?? left ventricular systolic function is normal, no wall motion abnormalities. ?? Visual estimation of left ventricular ejection fraction is 65%. ?? LV EF: ? DIASTOLIC: ? Diastolic function is indeterminate. ?? ATRIAL SEPTUM: ? Visually appears normal ?? LEFT ATRIUM: ? Mild dilatation. ?? RIGHT ATRIUM: ? Mild dilatation. ?? RIGHT VENTRICLE: ? Mild dilatation. Normal right ventricular systolic ?? function. ? TRICUSPID VALVE: ? Normal mobility and thickness. No stenosis with trivial ?? regurgitation. No evidence of pulmonary hypertension.RVSP 27mmHg. ? MITRAL VALVE: ? Normal mobility and thickness. ?? No evidence of mitral valve ?? stenosis. ??There is no mitral annular calcification. Trivial mitral ?? regurgitation. ? AORTIC VALVE: ? Normal trileaflet appearance. Mildly calcified aortic valve. ?? Normal leaflet mobility. ??No evidence of aortic valve stenosis. No aortic ?? regurgitation. ? AORTIC ROOT: ? Normal diameter and appearance. ? PULMONIC VALVE: ? Not well visualized. No stenosis. No regurgitation. ? PERICARDIUM: ? No evidence of pericardial effusion. Anterior fat pad. ? IVC: ? Collapes with inspirations. Normal size. ? PLEURA: ? CONCLUSION: ? Mildly thickened septal wall ?? Normal left ventricular systolic function without wall motion abnormalities, ?? ejection fraction 65% ?? Indeterminate left ventricular diastolic function ?? Mild biatrial enlargement ?? Mildly dilated right ventricle with normal systolic function ?? Normal right-sided pressures, RVSP 27 mmHg ?? No significant valvular abnormalities ? Adult Echocardiography Procedure Report ?? Left Ventricle ?? LVEDD (3.7 - 5.6 cm): ? 4.60 cm ?? LVESD (2.2 - 4.0 cm): ? 3.08 cm ?? LVIVS thickness (0.6 - 1.2 cm): ? 1.25 cm ?? LVPW thickness (0.5 - 1.0 cm): ? 0.98 cm ?? e': ? 0.08 m/s ?? E - e': ? 11.20 ?? LVOT Max Gradient: ? 4.71 mm[Hg] ?? LVOT Area (cm2): ? 1.09 m/s ?? Peak Velocity (LVOT): ? 1.09 m/s ?? Mean Velocity (LVOT): ? 0.71 m/s ?? LVOT Diameter ? 2.00 cm ?? Left Ventricular Ejection Fraction: ? 73.07 % ?? Left Atrium ?? LA Volume Index (2D A2C): ? 37.27 ml/m2 ?? Left Atrium Systolic Dimension: ? 3.84 cm ?? Mitral Valve ?? MV E to A Ratio: ? 1.24 ?? MV Max Gradient: ? MV Mean Gradient: ? Mitral Valve A-Wave Peak Velocity: ? 0.72 m/s ?? Mitral Valve E-Wave Peak Velocity: ? 0.90 m/s ?? Cardiovascular Orifice Area: ? Right Ventricle ?? RV Internal Diastolic Dimension: ? 4.48 cm ?? Aorta ?? AO Root Diam: ? 3.24 cm ?? Ascending Ao Diam: ? 3.20 cm ?? Aortic Valve ?? AoV Area (Peak Antony): ? 2.65 cm2, 2.65 cm2 ?? AoV Area (VTI): ? 2.79 cm2, 2.79 cm2 ?? Deceleration [place]: ? Pressure Half-Time: ? Peak Velocity(Antegrade Flow): ? 1.28 m/s ?? Peak Gradient(Antegrade Flow): ? 6.56 mm[Hg] ?? Mean Velocity(Antegrade Flow): ? 0.80 m/s ?? Mean Gradient(Antegrade Flow): ? 3.04 mm[Hg] ?? Velocity Time Integral: ? 32.21 cm ?? Tricuspid Valve ?? Peak Velocity (Regurgitant Flow): ? 2.45 m/s ?? Peak Velocity: ? Pulmonic Valve ?? Mean Gradient: ? 1.88 mm[Hg] ?? Mean Velocity: ? 0.65 m/s ?? Peak Velocity: ? 0.94 m/s, 0.99 m/s ?? Peak Gradient: ? 3.96 mm[Hg], 3.51 mm[Hg] ?? Right Atrium ?? Right Atrium Systolic Pressure: ? 67.21 ml, 67.21 ml ? Dictated by: Sharad Bae MD on 12/27/2024 at 15:46 ? Approved by: Sharad Bae MD on 12/27/2024 at 15:54 ? Dictated By: ?Sharad Bae M.D. ? Signed By: ?12/27/24 1555 ? DD/ 1554 ? TD/TT: ? Polysomnographic Technician: Procedure Note Radiology, Radiologist, MD - 12/27/2024 [place] [address] Cardiology Report Signed Patient: ARELIS CARRANZA AMR#: [id number] : 4Acct:[id number] Age/Sex: 69 / FADM Date: 12/25/24 Loc: CARD Attending Dr: CARLOS DANIEL Ordering Physician: CARLOS DANIEL Date of Service: 12/25/24 Procedure(s): CA echo doppler complete Accession Number(s): [id number] cc: YVONNE KONG ; CARLOS DANIEL Patient Name: ARELIS CARRANZA MR#: [id number] : 1955 Exam Date: 12/25/2024 Ordering Doctor: DR CARLOS DANIEL M.D. ECHOCARDIOGRAM REPORT PROCEDURE: CA ECHO DOPPLER COMPLETE INDICATIONS: Sinus pause, syncope, SOB COMPARISON: None. DESCRIPTION: COMPLETE ECHOCARDIOGRAM Real-time transthoracic echocardiography with 2D, M-mode, spectral and color flow Dopplerperformed. QUALITY: Technical quality was good. LEFT VENTRICLE: Normal chamber size. Mildly thickened septal wall.Global left ventricular systolic function is normal, no wall motionabnormalities. Visual estimation of left ventricular ejection fraction is 65%. LV EF: DIASTOLIC: Diastolic function is indeterminate. ATRIAL SEPTUM: Visually appears normal LEFT ATRIUM: Mild dilatation. RIGHT ATRIUM: Mild dilatation. RIGHT VENTRICLE: Mild dilatation. Normal right ventricular systolic function. TRICUSPID VALVE: Normal mobility and thickness. No stenosis withtrivial regurgitation. No evidence of pulmonary hypertension.RVSP 27mmHg. MITRAL VALVE: Normal mobility and thickness. No evidence of mitralvalve stenosis. There is no mitral annular calcification. Trivial mitral regurgitation. AORTIC VALVE: Normal trileaflet appearance. Mildly calcified aorticvalve. Normal leaflet mobility. No evidence of aortic valve stenosis. No aortic regurgitation. AORTIC ROOT: Normal diameter and appearance. PULMONIC VALVE: Not well visualized. No stenosis. No regurgitation. PERICARDIUM: No evidence of pericardial effusion. Anterior fat pad. IVC: Collapes with inspirations. Normal size. PLEURA: CONCLUSION: Mildly thickened septal wall Normal left ventricular systolic function without wall motionabnormalities, ejection fraction 65% Indeterminate left ventricular diastolic function Mild biatrial enlargement Mildly dilated right ventricle with normal systolic function Normal right-sided pressures, RVSP 27 mmHg No significant valvular abnormalities Adult Echocardiography Procedure Report Left Ventricle LVEDD (3.7 - 5.6 cm): 4.60 cm LVESD (2.2 - 4.0 cm): 3.08 cm LVIVS thickness (0.6 - 1.2 cm): 1.25 cm LVPW thickness (0.5 - 1.0 cm): 0.98 cm e': 0.08 m/s E - e': 11.20 LVOT Max Gradient: 4.71 mm[Hg] LVOT Area (cm2): 1.09 m/s Peak Velocity (LVOT): 1.09 m/s Mean Velocity (LVOT): 0.71 m/s LVOT Diameter 2.00 cm Left Ventricular Ejection Fraction: 73.07 % Left Atrium LA Volume Index (2D A2C): 37.27 ml/m2 Left Atrium Systolic Dimension: 3.84 cm Mitral Valve MV E to A Ratio: 1.24 MV Max Gradient: MV Mean Gradient: Mitral Valve A-Wave Peak Velocity: 0.72 m/s Mitral Valve E-Wave Peak Velocity: 0.90 m/s Cardiovascular Orifice Area: Right Ventricle RV Internal Diastolic Dimension: 4.48 cm Aorta AO Root Diam: 3.24 cm Ascending Ao Diam: 3.20 cm Aortic Valve AoV Area (Peak Antony): 2.65 cm2, 2.65 cm2 AoV Area (VTI): 2.79 cm2, 2.79 cm2 Deceleration [place]: Pressure Half-Time: Peak Velocity(Antegrade Flow): 1.28 m/s Peak Gradient(Antegrade Flow): 6.56 mm[Hg] Mean Velocity(Antegrade Flow): 0.80 m/s Mean Gradient(Antegrade Flow): 3.04 mm[Hg] Velocity Time Integral: 32.21 cm Tricuspid Valve Peak Velocity (Regurgitant Flow): 2.45 m/s Peak Velocity: Pulmonic Valve Mean Gradient: 1.88 mm[Hg] Mean Velocity: 0.65 m/s Peak Velocity: 0.94 m/s, 0.99 m/s Peak Gradient: 3.96 mm[Hg], 3.51 mm[Hg] Right Atrium Right Atrium Systolic Pressure: 67.21 ml, 67.21 ml Dictated by: Sharad Bae MD on 12/27/2024 at 15:46 Approved by: Sharad Bae MD on 12/27/2024 at 15:54 Dictated By: Sharad Bae M.D. Signed By:12/27/24 1555 DD/ 1554 TD/TT: Polysomnographic Technician: Authorizing ProviderResult TypeResult StatusGeneric External Data Provider CLINISYNC IMAGINGFinal Result * Bilateral screening mammogram with tomosynthesis (02/25/2024 3:54 PM EDT) Anatomical RegionLateralityModalityBreastBilateralMammographySpecimen (Source) Anatomical Location / LateralityCollection Method / VolumeCollection Time Received Time02/26/2024 12:32 PM EDT Impressions 02/26/2024 12:38 PM EDT [...] thickening which would be suggestive of malignancy. ?? Scattered benign-appearing calcifications are noted bilaterally. Axillary [...] Mamm ELECTRONICALLY SIGNED BY: Brian Soliz M.D. Authorizing ProviderResult TypeResult StatusLuciarra Cisse [facility] BI PROCEDURES Final Result * (ABNORMAL) Microalbumin / creatinine urine ratio (12/26/2023 1:18 PM EDT) ComponentValueRef RangeTest MethodAnalysis TimePerformed AtPathologist SignatureCREATININE, RANDOM [id number] - 275 mg/dLQUESTALBUMIN, WNOHF611.8See Note: mg/dLQUESTComment: Reference Range: Reference Range Not established Verified by repeat analysis. ALBUMIN/CREATININE RATIO, RANDOM [id number](H)<30 mg/g creatQUESTComment: The ADA defines abnormalities in albumin excretion as follows: Albuminuria Category ?Result (mg/g creatinine) Normal to Mildly increased <30 Moderately increased ? 30-299 Severely increased > OR = 300 The ADA recommends that at least two of three specimens collected within a 3-6 month period be abnormal before considering a patient to be within a diagnostic category. Specimen (Source)Anatomical Location / LateralityCollection Method / Volume Collection TimeReceived TimeUrineUrine specimen obtained by clean catch procedure / Pfnsgss0612/26/2023 1:18 PM EDT12/26/2023 1:18 PM EDT Narrative [facility] - 12/27/2023 1:55 PM EDT SPLIT 12/26/2023 FROM [id number] Resulting Agency Comment Performing Organization Information ?Site ID: [id number] ?Name: [facility] ?Address: [address] [place] [address], [address] [place] [id number] ?Director: Roosevelt Davila MD Authorizing ProviderResult TypeResult Shannan Cisse [facility] URINE ORDERABLES Final ResultPerforming OrganizationAddressCity/State/[facility] CodePhone Number QUEST * Color Fundus Photography - OU - Both Eyes (04/17/2023 11:43 AM EST)Anatomical RegionLateralityModalityHeadFundus Photography Narrative Authorizing ProviderResult TypeResult StatusShakira Aguilera [facility] Final Result * Colonoscopy (11/20/2018 12:00 PM EDT)Anatomical RegionLateralityModality EndoscopySpecimen (Source)Anatomical Location / LateralityCollection Method / VolumeCollection TimeReceived Time11/20/2018 12:00 PM EDT Narrative 11/20/2018 12:00 PM EDT PERFORMED AT [facility] LOCATION:[id number] Procedure Note CONVERSION, GENERIC - 09/12/2022 PERFORMED AT [facility] LOCATION:[id number] Authorizing ProviderResult TypeResult StatusMaxwell Freedman MDENDOSCOPY PROCEDURE ORDERABLESFinal Result from Last 3 Months or Most Recently Relevant to Health Maintenance Insurance Advance Directives TypeDate RecordedPatient RepresentativeExplanationPower of Attorney01/25/2025 4:15 PMHealthcare Power of Editor [employer] Care Teams Team MemberRelationshipSpecialtyStart DateEnd Yvonne Kong MD [address] [place] [address] PCP - Generalmi Medicine09/17/22 Yvonne Kong MD [address] [place] [address] PCP - [facility]/04/2511
--- OUTSIDE RECORDS SUMMARY | 2025-03-22 19:52 | XMS_ITS | Encounter Summary ---
Author Organization [facility] Healthcare Address [address] [place] [address] Care Team Providers Care Blasting Contract Miner Name Role Phone Yvonne Frankel MD Primary Care Provider [phone] Yvonne Frankel MD Unavailable Encounter Details DateTypeDepartmentCare Team (Latest Contact Info)Zcguplkctag14/24/2025Patient Outreach [facility] [address] [place] [phone] Jenna Willson, JOB TRAINER [address] [place], [place] [phone] Social History Tobacco UseTypesPacks/DayYears UsedDateSmoking Tobacco: Every DayCigarettes Smokeless Tobacco: NeverAlcohol UseStandard Drinks/WeekCommentsNever0 (1 standard drink = 0.6 oz pure alcohol)caffeine 1-2 cups/day; [id number] Health LiteracyAnswerDate RecordedHow often do you need [...] times a week12/13/2023How often do you attend denominational or uatsdin services?More than 4 times per year 12/13/2023o you belong to any clubs or organizations such as denominational groups, unions, fraAtritech or athletic groups, or school groups?No12/13/2023ttends Club or Organization MeetingsNot on file12/13/2023re you , , , , never , or living with a partner?Gyibypcg16/16/2024UDIT-C AnswerDate RecordedQ1: How often do you have [...] heating?Not very hard12/13/2023HQ-2Answer Date RecordedPatient Health Questionnaire-2 Hpicn337Finintermountain medical center [place] of Occupational Health - Occupational Stress QuestionnaireAnswerDate [...] steady place to sleep or slept in [facility] (including now)?No07/25/2023Housing Stability Vital SignAnswerDate RecordedIn the last 12 months, was there a time when you were not able to pay the mortgage or rent on time?No12/13/2023In the past 12 months, how many times have you moved where you were living? At any time in the past 12 months, were you homeless or living in a longterm (including now)?No12/13/2023CommentsUnknownSex and Gender Information ValueDate RecordedSex Assigned at BirthNot on fileLegal NswCrnwmk84/15/2023 6:58 PM EDTGender IdentityNot on fileSexual OrientationNot on filedocumented as of this encounter Progress Notes * MICHELLE Lee - 03/22/2025 1:49 PM EST <March 22, 2025, 13:49 - MICHELLE Lee> Chart reviewed. Called and spoke to pt for CCM monitoring. Noted we received fax from [facility] advising that pt fell on 03/18 and was having LLE pain. Pt reports pain is actually in right leg. She tripped while trying to get a bag out of her pantry. She normally uses cane or walker in home but had set cane to the side. Son was present at time of fall and helped her get up. She has pain in right an kle, leg, and knee. Denies bruising or swelling. States she can still bear weight and walk on rightleg. Pt sees Dr. Frankel 03/29 and declines sooner appt. Enc pt if she has increased pain, swelling, hard spot, or redness to call office or go to ER if over holiday weekend. Pt has sleep study tonight and is aware of lung CT scheduled tomorrow. States her daughter is also aware of appts. Pt's granddaughter still needs to take a test before she can start working as pt's aide. Reports things are going well with L[facility]mqa nurse. Pt has not heard anything about pillbox that was ordered through [place].JOB TRAINER will follow up with [facility]. No other concerns at this time. LM for Elena at [facility] inquiring about status of pillbox. documented in this encounter Plan of Treatment DateTypeDepartmentCare Team (Latest Contact Info)Wpdbyaiwrpj85/25/2025 3:45 PM ESTAncillary Procedure [facility] [address] [place] [phone] 03/29/2025 4:20 PM ESTOffice Visit [facility] [address] [place] [address] [place] [phone] Yvonne Frankel MD [address] [place] [address] 04/06/2025 3:40 PM ESTOffice Visit [facility] [facility] [place] [phone] Yvonne Frankel MD [address] [place], [place] [phone] documented as of this encounter Visit Diagnoses [...] DateEnd Date Yvonne Frankel MD [address] [place] [address] [facility] - [facility]/17/22 Yvonne Frankel MD [address] [place], [place] [phone] PCP - [facility]/documented as of this encounter
--- OUTSIDE RECORDS SUMMARY | 2025-03-22 19:52 | XMS_ITS | Clinical Summary ---
Author Organization [facility] Address [id number] [place] [address] Care Team Providers Care It Risk Advisor Name Role Phone Yvonne Frankel MD Primary Care Provider [phone] Allergies Active AllergyReactionsCriticalityNoted DateCommentsDuloxetine HclDiarrhea 09/18/2023 Medications MedicationSigDispense QuantityRefillsLast FilledStart DateEnd DateStatus eszopiclone (LUNESTA) tablet Take 1 tablet (3 mg total) by mouth in the morning. Take immediately before bedtime .Active hydroCHLOROthiazide (HYDRODIURIL) 25 mg tablet Take 1 tablet (25 mg total) by mouth daily.Active metoprolol tartrate (LOPRESSOR) 25 mg tablet Take 1 tablet (25 mg total) by mouth in the morning and 1 tablet (25 mg total) before bedtime.Active potassium chloride (KLOR-CON) 20 mEq packet Take 1 packet (20 mEq total) by mouth in the morning.Active levothyroxine (SYNTHROID, LEVOTHROID) 125 MCG tablet Indications:Postsurgical hypothyroidismTAKE 1 TABLET BY MOUTH EVERY DAY IN THE MORNING 90 tablet ctive OYSTER SHELL CALCIUM-VIT D3 500 mg-5 mcg (200 unit) per tablet TAKE 2 TABLETS BY MOUTH 3 TIMES A DAY WITH MEALS. 540 tablet ctive Additional Information Patient not taking.Reported on 09/07/2024 aspirin 81 mg 07/23/2023ctive atorvastatin (LIPITOR) 40 mg tablet Take 1 tablet (40 mg total) by mouth.10/15/2023ctive furosemide (LASIX) 20 mg tablet Take 1 tablet (20 mg total) by mouth.4Active metFORMIN (GLUCOPHAGE) 500 mg tablet 3Active sertraline (ZOLOFT) 50 mg tablet Take 1 tablet (50 mg total) by mouth.4Active traZODone (DESYREL) 50 mg tablet 06/25/2023ctive fluticasone propionate (FLONASE) 50 mcg/actuation nasal spray Administer 2 sprays into each nostril in the morning.01/20/2024ctive mometasone (ELOCON) 0.1 % ointment Apply 1 Application topically in the morning.04/30/2023ctive polyethylene glycol (GLYCOLAX) 17 gram packet Indications:Constipation, unspecified constipation typeTake 17 g by mouth in the morning. 7 packet 5Active lisinopriL (PRINIVIL,ZESTRIL) 10 mg tablet Take 1 tablet (10 mg total) by mouth in the morning.5Active Active Problems ProblemNoted DateDiagnosed DateHearing loss04/11/2020Tinnitus of left ear 04/11/2020Chest pain08/22/2018Abnormal stress test08/22/2018Abnormal cardiovascular stress test08/22/2018 Overview (08/22/2018): Added automatically from request for surgery [id number] Status post beicvoxzpfwai97/29/2018Thyroid aruyvs5307/22/2017Body mass index 50.0- 59.9, adult06/03/2017ConstipationEssential hypertensionArthritisAnxietyColon polyp Overview (08/21/2018): TUBULOVILLOUS ADENOMA Obesity Resolved Problems ProblemNoted DateDiagnosed DateResolved BprgWmkhwuytlcm95/26/2019 Encounters DateTypeDepartmentCare NkpuRrfgvaserkm21/15/2025Telephone [facility] [address] [place] [address] Reena Mandel 12/24/2024Telephone [facility] [address] [place] [phone] Reena Mandel 12/23/2024Telephone [facility] [address] [place] [address] Transcribe, Orders Support User Sleep Lab (PT Inquiry)from Last 3 Months Immunizations ImmunizationAdministration DatesNext DuePneumococcal Gugghcpozxagou03/25/2013 Family History Medical HistoryRelationNameCommentsNo Known ProblemsFatherColon cancerMaternal GrandmotherAlzheimer's diseaseMotherHypertensionMotherRelationNameStatusComments FatherDeceasedMaternal GrandmotherMotherAlive Social History Tobacco UseTypesPacks/DayYears UsedDateSmoking Tobacco: Every DayCigarettes1.5 55.9Started: 1970Smokeless Tobacco: Never Tobacco Cessation:Ready to Q uit: Not Asked; Counseling Given: Not Answered Alcohol UseStandard Drinks/WeekCommentsYes0 (1 standard drink = 0.6 oz pure alcohol)occasionalPHQ-2AnswerDate RecordedTotal Ymwdy870ChildcareAnswer Date YdzvgfzpXsfephuseAmzqelc81/30/2019EmploymentAnswerDate RecordedEmployment Lbttoop5509/25/2018Hunger ScreeningAnswerDate RecordedWithin the past 12 months we worried whether our food would run out before we got money to buy more.Never True10/17/2024Within the past 12 months the food we bought just didn't last and we didn't have money to get more.Never True10/17/2024Purpose - LifeAnswerDate RecordedPurpose and direction in keejGyuaopm24/19/2021CommentsNoSex and Gender InformationValueDate RecordedSex Assigned at BirthNot on fileLegal Sex Mtzejr2912/02/2014 11:21 AM EDTGender IdentityNot on fileSexual OrientationNot on file Last Filed Vital Signs Vital SignReadingTime TakenCommentsBlood Mgqnohib675/76010/17/2024 6:55 PM EDT Xatsb2582/21/2025 6:55 PM GMXFwzvcdnuqkx54.8 ??C (98.2 ??F)10/17/2024 2:56 PM EDTRespiratory Rfwb959310/17/2024 6:55 PM EDTOxygen Rykpbvqjew83%10/17/2024 6:55 PM EDTInhaled Oxygen Concentration--Ldrzrp041.8 kg (317 lb)10/17/2024 2:56 PM ILVKufepn546.6 cm (5' 6 )10/17/2024 2:56 PM EDTBody Mass Index51.17010/17/2024 2:56 PM EDT Plan of Treatment Health MaintenanceDue DateLast DoneCommentsTobacco Iinyoxxlfw50/10/1954 Depression Kxsrpdjob04/10/1966Adult BMI Follow Up Plan1971DTaP,Tdap and Td Vaccines (1 - Tdap)1972RSV ( or age 60+ yrs) (1 - Risk 60-74 years 1-dose series)2013Fall Risk Drrgdblhu55/10/2019Zoster (Shingles) Vaccine (2 of 2)/4COVID-19 Vaccine (3 - season)2024 10/12/2020, 09/07/2020Influenza Yrrcprj64/05/2023, 03/07/2023, 04/16/2022, Additional history existsAdult BMI Nkxxwbreb97/ Tobacco Yejisxjrk92/2374Aeglqukelnt94, 10/02/2024, 03/06/2024, Additional history exists Medical Devices Not on file Procedures Procedure NamePriorityDate/TimeAssociated DiagnosisCommentsPROVATION COLONOSCOPY Wsaiges9610/02/2024 8:04 AM EDT from Last 3 Months or Most Recently Relevant to Health Maintenance Results * Colonoscopy Report (10/02/2024 8:04 AM EDT)Specimen (Source)Anatomical Location / LateralityCollection Method / VolumeCollection TimeReceived Time Narrative SYSTEMGENERATED, DOCUMENTATION - 10/02/2024 8:04 AM EDT This order has been auto-finalized for image and report archival in PACs. *For full report details, please reach out to your physician. ??This image is visible to you in MyChart.* Authorizing ProviderResult TypeResult StatusMennatlee Duran MDIMG OR IMG ORDERABLESFinal Result from Last 3 Months or Most Recently Relevant to Health Maintenance Insurance Advance Directives * Full Code (Latest Code Status on File) Date ActivatedDate InactivatedComments07/25/2017 4:38 PM07/26/2017 12:34 PM Care Teams Team MemberRelationshipSpecialtyStart DateEnd Date Yvonne Frankel MD [address] [place] [address] PCP - GeneralFamily Medicine10/17/24
--- OUTSIDE RECORDS SUMMARY | 2025-03-22 19:52 | XMS_ITS | Encounter Summary ---
Author Organization [facility] Healthcare Address [address] [place] [address] Care Team Providers Care Retirement Consultant Name Role Phone Yvonne Frankel MD Primary Care Provider [phone] Yvonne Frankel MD Unavailable Encounter Details DateTypeDepartmentCare Team (Latest Contact Info)Jrinxgufwoq93/13/2025Patient Outreach [facility] POP[facility]ATION HEALTH [address] [place] [phone] Oswaldo Marcelo LPN [address] [facility] [address] [place] [address] Social History Tobacco UseTypesPacks/DayYears UsedDateSmoking Tobacco: Every DayCigarettes Smokeless Tobacco: NeverAlcohol UseStandard Drinks/WeekCommentsNever0 (1 standard drink = 0.6 oz pure alcohol)caffeine 1-2 cups/day; [id number] Health LiteracyAnswerDate RecordedHow often do you need [...] sexual activity by your part ner or ex-partner?12/13/2023Social Connection and Isolation PanelAnswerDate RecordedIn a typical week, how many times do you talk on the phone with family, friends, or neighbors?More than three times a week12/13/2023How often do you get together with friends or relatives?More than three times a week12/13/2023How often do you attend congregational or mosque services?More than 4 times per year 12/13/2023o you belong to any clubs or organizations such as congregational groups, unions, fraIntellihot Green Technologies or athletic groups, or school groups?No12/13/2023ttends Club or Organization MeetingsNot on file12/13/2023re you , , , , never , or living with a partner?Wivovrxn91/16/2024UDIT-C AnswerDate RecordedQ1: How often do you have [...] heating?Not very hard12/13/2023HQ-2Answer Date RecordedPatient Health Questionnaire-2 Rgkrh506Finblue mountain hospital, inc. [place] of Occupational Health - Occupational Stress QuestionnaireAnswerDate [...] steady place to sleep or slept in [place] (including now)?No07/25/2023Housing Stability Vital SignAnswerDate RecordedIn the last 12 months, was there a time when you were not able to pay the mortgage or rent on time?No12/13/2023In the past 12 months, how many times have you moved where you were living? At any time in the past 12 months, were you homeless or living in a skilled nursing (including now)?No12/13/2023CommentsUnknownSex and Gender Information ValueDate RecordedSex Assigned at BirthNot on fileLegal SwvWxxpim22/15/2023 6:58 PM EDTGender IdentityNot on fileSexual OrientationNot on filedocumented as of this encounter Progress Notes * Oswaldo Marcelo LPN - 03/11/2025 9:50 AM EST Attached media from the original note were not included. <March 11, 2025, 08:10 - Oswaldo Marcelo LPN> CATHI CONTEH has received fax for Plan ofCare from both [facility] et [address] Unclear which home care agency is/will be providing Patient care. Will attempt clarification. <March 11, 2025, 09:50 - Oswaldo Marcelo LPN> Phone communication initiated to Patient's daughter, Adelina, at [phone]. Call rings continuously without answer. Unable to record voice message. <March 11, 2025, 09:52 - Oswaldo Marcelo LPN> Phone communication initiated to Elena Cruz RN, [facility] [facility], at [phone]. Call rings to voicemail. This nurse records voice message requesting return call at [phone] with clarification of above, should referral been initiated by [employer]. <March 11, 2025, 12:05 - Oswaldo Marcelo LPN> Receive voice message from Elena Cruz RN with [employer]. Elena adviskelly Patient did have [facility] services initially, but there was a problem et Patient is now receiving care through [address] documented in this encounter Plan of Treatment DateTypeDepartmentCare Team (Latest Contact Info)Nfzuetlwkrp69/25/2025 3:[address] [facility] [address] [facility] [address] [place] [phone] 03/29/2025 4:[address] [facility] [address] [place] [phone] Yvonne Frankel MD [address] [place] [address] 04/06/2025 3:[address] [facility] [address] [place] [phone] Yvonne Frankel MD [address] [place] [address] documented as of this encounter Visit Diagnoses [...] MemberRelationshipSpecialtyStart DateEnd Date Yvonne Frankel MD [address] [place], [place] [phone] [facility] - [facility]/22 Yvonne Frankel MD [address] [place] [address] PCP - [facility]/documented as of this encounter
== END 2025-03-22 19:49 | disposition home or self-care (01) ==
LOC: SLEEP 19:49
PROVIDERS: PCP Internal Medicine Interventional Cardiology; Visit Provider Internal Medicine Interventional Cardiology
DX: G47.33 Obstructive sleep apnea (adult) (pediatric) (principal)
CPT/HCPCS: 95811